=== PATIENT | male | born 1955 | race Caucasian/White ===

== ENCOUNTER 2016-11-04 18:31 | Emergency (ER) | payer OTHER ==
--- NOTE | 2016-11-04 19:52 | ER Document Report ---
ED Medical Screen (RME) - General Stated Complaint: LEG PAIN/SWELLING Notes: 61 yo male c/o swelling to both lower legs with open wounds to both feet x several years but the symptoms worsening x last week. difficult to walk. c/o dizzy spell today. + shortness of breath. denies chest pain. pt denies hx/o DM. + hx/o HTN significant swelling to both lower extremities. + ulcerations to plantar great toes. + erythema. very painful
[2016-11-04 20:19] LABS: ABSOLUTE BASOPHILS # (AUTO) 0.1 10^3/uL (0.0-0.2); ABSOLUTE LYMPHOCYTES (AUTO) 1.2 10^3/uL (0.5-4.7); ABSOLUTE MONOCYTES (AUTO) 0.3 10^3/uL (0.1-1.4); ABSOLUTE NEUT (AUTO) 3.5 10^3/uL (1.7-8.2); BASOPHILS % (AUTO) 1.2 % (0-2); EOSINOPHILS % (AUTO) 0.6 % (0-6); HEMATOCRIT 39.8 % (37.9-51.0); HEMOGLOBIN 13.8 g/dL (13.5-17.0); HGB HCT DIFFERENCE 1.6; LYMPHOCYTES % (AUTO) 23.6 % (13-45); MEAN CORPUSCULAR HEMOGLOBIN 36.9 pg (27.0-33.4); MEAN CORPUSCULAR HGB CONC 34.7 g/dL (32.0-36.0); MEAN CORPUSCULAR VOLUME 106 fl (80-97); MONOCYTES % (AUTO) 5.1 % (3-13); RED BLOOD COUNT 3.74 10^6/uL (4.35-5.55); RED CELL DISTRIBUTION WIDTH 13.6 % (11.5-14.0); SEGMENTED NEUTROPHILS % (AUTO) 69.5 % (42-78); WHITE BLOOD COUNT 5.1 10^3/uL (4.0-10.5)
[2016-11-04 20:24] LABS: PROTHROMBIN TIME 14.3 SEC (11.4-15.4)
[2016-11-04 20:35] LABS: ALANINE AMINOTRANSFERASE 103 U/L (21-72); ALBUMIN 3.6 g/dL (3.5-5.0); ALKALINE PHOSPHATASE 255 U/L (38-126); ANION GAP 13 (5-19); ASPARTATE AMINO TRANSFERASE 133 U/L (17-59); BILIRUBIN,TOTAL 1.4 mg/dL (0.2-1.3); BLOOD UREA NITROGEN 6 mg/dL (7-20); CALCIUM 8.8 mg/dL (8.4-10.2); CARBON DIOXIDE 23 mmol/L (22-30); CHLORIDE 110 mmol/L (98-107); CREATININE RESULT 0.69 mg/dL (0.52-1.25); GLUCOSE 143 mg/dL (75-110); POTASSIUM 3.5 mmol/L (3.6-5.0); SODIUM 145.8 mmol/L (137-145); TOTAL PROTEIN 8.7 g/dL (6.3-8.2)
[2016-11-05] MEDS ORDERED: CLINDAMYCIN HCL 150 MG CAPSULE PO ONE (00:41)
[2016-11-05] MEDS ORDERED: HYDROCODONE/ACETAMINOPHEN 5-325 MG 6 TAB/DSPK PO PRN (00:43)
--- NOTE | 2016-11-05 00:43 | ER Document Report ---
ED General - General Chief Complaint: Swelling of Lower Extremity Stated Complaint: LEG PAIN/SWELLING Notes: Patient is a 61-year-old male with past medical history of chronic bilateral lower extremity edema and chronic bilateral lower extremity wounds who presents for concerns of possible infection of his bilateral great toes secondary to chronic wounds. He has not seen his primary care physician regarding today's concerns. He does not currently follow and a wound clinic. States he's had these wounds "on and off for the last one year". Notes that he has a constant, dull, throbbing pain to these areas. Touching the area worsens the pain. Nothing improves the pain. Denies any spreading redness from the area. No fever, nausea or vomiting. - Related Data Allergies/Adverse Reactions: No Known Allergies Allergy (Unverified 11/04/16 19:47) Past Medical History - General Information source: Patient - Social History Smoking Status: Unknown if Ever Smoked Frequency of alcohol use: None Drug Abuse: None Lives with: Family Family History: Reviewed & Not Pertinent Patient has suicidal ideation: No Patient has homicidal ideation: No - Past Medical History Cardiac Medical History: Reports: Hx Hypertension Renal/ Medical History: Denies: Hx Peritoneal Dialysis Past Surgical History: Reports: Hx Appendectomy - Immunizations Hx Diphtheria, Pertussis, Tetanus Vaccination: Yes Review of Systems - Review of Systems Notes: Constitutional: Negative for fever. HENT: Negative for sore throat. Eyes: Negative for visual changes. Cardiovascular: Negative for chest pain. Respiratory: Negative for shortness of breath. Gastrointestinal: Negative for abdominal pain, vomiting or diarrhea. Genitourinary: Negative for dysuria. Musculoskeletal: Positive for bilateral great toe pain. Skin: Positive for wounds of the bilateral great toes Neurological: Negative for headaches, weakness or numbness. 10 point ROS negative except as marked above and in HPI. Physical Exam - Vital signs Vitals: Temp Pulse Resp BP Pulse Ox 97.6 F 98 24 H 179/93 H 97 11/04/16 19:40 11/04/16 19:40 11/04/16 19:40 11/04/16 19:40 11/04/16 19:40 Interpretation: Hypertensive Notes: PHYSICAL EXAMINATION: GENERAL: Well-appearing, well-nourished and in no acute distress. HEAD: Atraumatic, normocephalic. EYES: Pupils equal round and reactive to light, extraocular movements intact, sclera anicteric, conjunctiva are normal. ENT: nares patent, oropharynx clear without exudates. Moist mucous membranes. NECK: Normal range of motion, supple without lymphadenopathy LUNGS: Breath sounds clear to auscultation bilaterally and equal. No wheezes rales or rhonchi. HEART: Regular rate and rhythm without murmurs ABDOMEN: Soft, nontender, normoactive bowel sounds. No guarding, no rebound. No masses appreciated. EXTREMITIES: 3+ pitting edema in the bilateral lower extremities is symmetric NEUROLOGICAL: No focal neurological deficits. Moves all extremities spontaneously and on command. PSYCH: Normal mood, normal affect. SKIN: Warm, Dry, normal turgor, patient is to circumferential wounds along the medial aspects of both great toes along the plantar surface. There is an Fernando arm both areas and there is slight. No drainage from the right-sided wound Course - Re-evaluation Re-evalutation: 11/05/16 00:38 Patient presents with ulcerated wounds with associated pressures of the bilateral great toes in conjunction with his chronic lower extremity edema. He is overall nontoxic in appearance, vitals within normal limits, no leukocytosis. No fever. X-rays wihtout evidence of osteomyelitis. I've have encouraged patient follow-up in the wound care clinic has he needs chronic management of these wounds. He will also be started on antibiotics as his right great toe wound does appear to have an associated purulent drainage and pus.At this time will discharge with return precautions and follow-up recommendations. Verbal discharge instructions given a the bedside and opportunity for questions given. Medication warnings reviewed. Patient is in agreement with this plan and has verbalized understanding of return precautions and the need for primary care follow-up in the next 24-72 hours. - Vital Signs Vital signs: Temp Pulse Resp BP Pulse Ox 98.8 F 94 18 174/81 H 93 11/05/16 01:24 11/05/16 01:24 11/05/16 01:24 11/05/16 01:24 11/05/16 01:24 - Laboratory Result Diagrams: 11/04/16 20:00 11/04/16 20:00 Laboratory results interpreted by me: 11/04/16 11/04/16 20:00 20:00 RBC 3.74 L MCV 106 H MCH 36.9 H Plt Count 75 L Sodium 145.8 H Potassium 3.5 L Chloride 110 H BUN 6 L Glucose 143 H Total Bilirubin 1.4 H AST 133 H ALT 103 H Alkaline Phosphatase 255 H Total Protein 8.7 H - Diagnostic Test Radiology reviewed: Reports reviewed Discharge - Discharge Clinical Impression: Bilateral lower extremity edema, Pressure ulcer of both feet Condition: Good Disposition: HOME, SELF-CARE Additional Instructions: Please take the antibiotics as directed. Take pain medication that you were sent home with only for severe pain. Please follow-up with Dr. Au of the wound care clinic at your earliest ability. Return if you develop fever, vomiting, worsening pain, spreading redness from her toe wounds, or any other symptoms that are worrisome to you. Prescriptions: RX: Clindamycin HCl 300 mg PO TID #30 capsule Referrals: TRENT AU MD [ACTIVE STAFF] - Follow up in 3-5 days
[2016-11-05 01:35] VITALS: BP 174/81
== END 2016-11-05 01:38 | disposition home or self-care (01) ==
LOC: ER 18:31
DX: L89.899 Pressure ulcer of other site, unspecified stage (principal); R60.0 Localized edema; M79.674 Pain in right toe(s); M79.675 Pain in left toe(s); I10 Essential (primary) hypertension
CPT/HCPCS: 36415; 80053; 85025; 85610; 99283

== ENCOUNTER 2017-02-28 17:45 | Inpatient (IN) | payer OTHER ==
--- NOTE | 2017-02-28 18:11 | ER Document Report ---
ED Medical Screen (RME) - General Chief Complaint: Shortness Of Breath Stated Complaint: BREATHING DIFFICULTY Time Seen by Provider: 02/28/17 18:07 Mode of Arrival: Wheelchair Information source: Patient TRAVEL OUTSIDE OF THE [place] IN LAST 30 DAYS: No - HPI Patient complains to provider of: SOB, dyspnea Onset: Other - pt. with c/o dyspnea and sob for the psat several days with exacerbation today. Gets extrmely SOB when he takes a few steps. - Related Data Allergies/Adverse Reactions: No Known Allergies Allergy (Verified 02/28/17 17:57) Past Medical History - Past Medical History Cardiac Medical History: Reports: Hx Hypertension Renal/ Medical History: Denies: Hx Peritoneal Dialysis Past Surgical History: Reports: Hx Appendectomy - Immunizations Hx Diphtheria, Pertussis, Tetanus Vaccination: Yes Physical Exam - Vital signs Vitals: Temp Pulse Resp BP Pulse Ox 97.9 F 98 28 H 125/62 86 L 02/28/17 17:57 02/28/17 17:57 02/28/17 17:57 02/28/17 17:57 02/28/17 17:57 Course - Vital Signs Vital signs: Temp Pulse Resp BP Pulse Ox 97.9 F 98 28 H 125/62 86 L 02/28/17 17:57 02/28/17 17:57 02/28/17 17:57 02/28/17 17:57 02/28/17 17:57
[2017-02-28 18:47] LABS: ARTERIAL BLOOD BASE EXCESS -3.2 mmol/L; ARTERIAL BLOOD O2 SATURATION 95.1 % (94-98)
[2017-02-28] MEDS ORDERED: IPRATROPIUM/ALBUTEROL 0.5-2.5 MG/3 ML AMPUL NEB ONE (18:57)
[2017-02-28] MEDS ORDERED: METHYLPREDNISOLONE INJ 125 MG/2 ML SDV IV ONE (19:01)
--- NOTE | 2017-02-28 19:07 | ER Document Report ---
ED Respiratory Problem - General Chief Complaint: Shortness Of Breath Stated Complaint: BREATHING DIFFICULTY Time Seen by Provider: 02/28/17 18:07 Mode of Arrival: Wheelchair Information source: Patient Notes: This is a 61-year-old male who presents with significant shortness of breath. He states that this has been worsening for a couple weeks, but for the past 5 days his dyspnea has been severe. Today he has been unable to walk because he is too short of breath. He is not on home oxygen. He states that something similar happened a few years ago when he was told he has "something like COPD". He uses Symbicort at home but no nebulizers. He denies any chest pain. No fevers or chills. He has had a cough that has been nonproductive. He has chronic bilateral lower extremity edema which he says is somewhat worse for the past couple days. TRAVEL OUTSIDE OF THE [place] IN LAST 30 DAYS: No - Related Data Allergies/Adverse Reactions: No Known Allergies Allergy (Verified 02/28/17 17:57) Past Medical History - General Information source: Patient, [facility] Records - Social History Smoking Status: Former Smoker Frequency of alcohol use: Occasional Drug Abuse: None Lives with: Family Family History: Reviewed & Not Pertinent Patient has suicidal ideation: No Patient has homicidal ideation: No - Past Medical History Cardiac Medical History: Reports: Hx Hypertension Pulmonary Medical History: Reports: Hx COPD Renal/ Medical History: Denies: Hx Peritoneal Dialysis Past Surgical History: Reports: Hx Appendectomy, Hx Cholecystectomy - Immunizations Hx Diphtheria, Pertussis, Tetanus Vaccination: Yes Review of Systems - Review of Systems Constitutional: No symptoms reported. denies: Chills, Fever EENT: No symptoms reported Cardiovascular: See HPI, Dyspnea. denies: Chest pain, Palpitations Respiratory: See HPI, Cough. denies: Hurts to breathe, Short of breath, Wheezing Gastrointestinal: No symptoms reported. denies: Abdominal pain, Diarrhea, Vomiting Genitourinary: No symptoms reported Musculoskeletal: See HPI, Leg swelling Skin: No symptoms reported Hematologic/Lymphatic: No symptoms reported Neurological/Psychological: No symptoms reported Physical Exam - Vital signs Vitals: Temp Pulse Resp BP Pulse Ox 97.9 F 98 28 H 125/62 86 L 02/28/17 17:57 02/28/17 17:57 02/28/17 17:57 02/28/17 17:57 02/28/17 17:57 - Notes Notes: PHYSICAL EXAMINATION: GENERAL: Ill appearing male, appears mildly juandiced, tachypnic with mild resp distress, pleasant and conversant with conversational dyspnea HEAD: Atraumatic, normocephalic. EYES: Pupils equal round and reactive to light, extraocular movements intact, sclera icteric ENT: nares patent, oropharynx clear without exudates. MM somewhat tachy NECK: Normal range of motion, supple without lymphadenopathy LUNGS: decreased bibasilar breath sounds with faint crackles, tachypneic, no wheezes appreciated HEART: Regular rate and rhythm without murmurs ABDOMEN: Soft, protuberant, nontender, normoactive bowel sounds. No guarding, no rebound. EXTREMITIES: 2-3+ bilateral LE edema. R ankle with erythema. Pulses intact. NEUROLOGICAL: Cranial nerves grossly intact. No gross focal motor or sensory deficits appreciated PSYCH: Normal mood, normal affect. SKIN: jaundiced, multiple spider angiomas noted Course - Re-evaluation Re-evalutation: 02/28/17 23:40 Patient is not having any increased respiratory difficulty with respirations about 35/min. He is still alert and conversant and states that he feels okay. His sats on 3 L now down to 87%. I will initiate BiPAP at this time I did discuss his CT results and the concern for metastatic disease. I have paged the hospitalist for admission. - Vital Signs Vital signs: Temp Pulse Resp BP Pulse Ox 97.9 F 98 32 H 118/58 L 97 02/28/17 17:57 02/28/17 17:57 03/01/17 02:41 02/28/17 21:00 03/01/17 02:41 - Laboratory Result Diagrams: 02/28/17 18:40 02/28/17 19:33 Laboratory results interpreted by me: 02/28/17 02/28/17 02/28/17 18:37 18:40 18:40 WBC 13.3 H RBC 3.23 L Hgb 13.0 L MCV 119 H MCH 40.3 H RDW 19.9 H Plt Count 107 L Lymphocytes % (Manual) 9 L Abs Neuts (Manual) 10.9 H PT D-Dimer 13.92 H Carbonic Acid 0.74 L ABG pH 7.50 H ABG pCO2 24.5 L ABG pO2 67.0 L ABG HCO3 18.5 L ABG Total CO2 19.2 L Sodium Carbon Dioxide Total Bilirubin Direct Bilirubin AST Alkaline Phosphatase NT-Pro-B Natriuret Pep Total Protein Albumin 02/28/17 02/28/17 02/28/17 18:40 19:33 19:33 WBC RBC Hgb MCV MCH RDW Plt Count Lymphocytes % (Manual) Abs Neuts (Manual) PT 16.7 H D-Dimer Carbonic Acid ABG pH ABG pCO2 ABG pO2 ABG HCO3 ABG Total CO2 Sodium 133.5 L Carbon Dioxide 17 L Total Bilirubin 5.8 H Direct Bilirubin 3.7 H AST 89 H Alkaline Phosphatase 200 H NT-Pro-B Natriuret Pep 2980 H Total Protein 9.1 H Albumin 2.3 L 03/01/17 00:05 WBC RBC Hgb MCV MCH RDW Plt Count Lymphocytes % (Manual) Abs Neuts (Manual) PT D-Dimer Carbonic Acid 0.82 L ABG pH 7.48 H ABG pCO2 27.3 L ABG pO2 ABG HCO3 19.9 L ABG Total CO2 20.7 L Sodium Carbon Dioxide Total Bilirubin Direct Bilirubin AST Alkaline Phosphatase NT-Pro-B Natriuret Pep Total Protein Albumin Critical Care Note - Critical Care Note Total time excluding time spent on procedures (mins): 40 - minutes of critical care time spent in direct contact evaluating and reevaluating the patient, treating symptoms, reviewing labs and studies and speaking with family and consultants excluding any procedures Discharge - Discharge Clinical Impression: Respiratory failure Qualifiers: Chronicity: acute Respiratory failure complication: hypoxia Qualified Code(s): J96.01 - Acute respiratory failure with hypoxia Pulmonary metastases Qualifiers: Laterality: unspecified laterality Qualified Code(s): C78.00 - Secondary malignant neoplasm of unspecified lung Condition: Serious Disposition: ADMITTED INPATIENT Admitting Provider: Hospitalist - Dr. Briggs Unit Admitted: [facility]
[2017-02-28 19:10] LABS: HEMATOCRIT 38.3 % (37.9-51.0); HGB HCT DIFFERENCE 0.7; MEAN CORPUSCULAR HEMOGLOBIN 40.3 pg (27.0-33.4); RED BLOOD COUNT 3.23 10^6/uL (4.35-5.55); RED CELL DISTRIBUTION WIDTH 19.9 % (11.5-14.0); WHITE BLOOD COUNT 13.3 10^3/uL (4.0-10.5)
--- NOTE | 2017-02-28 19:39 | RADIOLOGY REPORT (SQ) ---
EXAM DESCRIPTION: CHEST SINGLE VIEW COMPLETED DATE/TIME: 02/28/2017 7:18 pm REASON FOR STUDY: SOB COMPARISON: None. NUMBER OF VIEWS: One view. TECHNIQUE: Single frontal radiographic view of the chest acquired. LIMITATIONS: None. FINDINGS: LUNGS AND PLEURA: Coarse opacities, alveolar and interstitial densities most conspicuous t hroughout the lung bases relatively diffusely and noted bilaterally. Acuity indeterminate. Findings could reflect active pneumonia/aspiration. Chronic underlying lung disease could also be present. Doubt failure. No pneumothorax. No significant pleural fluid. MEDIASTINUM AND HILAR STRUCTURES: No masses. Contour normal. HEART AND VASCULAR STRUCTURES: Heart normal in size. Normal vasculature. BONES: No acute findings. HARDWARE: None in the chest. OTHER: No other significant finding. IMPRESSION: Abnormal opacities in the lungs bilaterally, acuity indeterminate. See above. TECHNICAL DOCUMENTATION: JOB ID: [id number] [employer]- All Rights Reserved
[2017-02-28 19:40] LABS: PROTHROMBIN TIME 16.7 SEC (11.4-15.4)
[2017-02-28 19:43] LABS: BAND NEUTROPHILS % (MANUAL) 5 % (3-5); BASOPHILS % (MANUAL) 1 % (0-2); EOSINOPHILS % (MANUAL) 0 % (0-6); LYMPHOCYTES % (MANUAL) 9 % (13-45); TOTAL CELLS COUNTED 100
[2017-02-28 19:45] LABS: ANISOCYTOSIS 2+; TOXIC VACUOLATION PRESENT
[2017-02-28 19:46] LABS: POIKILOCYTOSIS SLIGHT; POLYCHROMASIA SLIGHT; ROULEAUX SLIGHT; TOXIC GRANULATION 1+
[2017-02-28 19:48] LABS: TARGET CELLS SLIGHT; TEAR DROP CELLS SLIGHT
[2017-02-28 19:49] LABS: MEAN CORPUSCULAR VOLUME 119 fl (80-97)
[2017-02-28] MEDS ORDERED: AZITHROMYCIN INJ 500 MG VIAL IV ONE (19:57)
[2017-02-28] MEDS ORDERED: CEFTRIAXONE 1 GM/D5W RTU 50 ML IV ONE (19:57)
[2017-02-28 19:59] LABS: ALANINE AMINOTRANSFERASE 45 U/L (21-72); ALBUMIN 2.3 g/dL (3.5-5.0); ALKALINE PHOSPHATASE 200 U/L (38-126); ANION GAP 10 (5-19); ASPARTATE AMINO TRANSFERASE 89 U/L (17-59); BILIRUBIN,DIRECT 3.7 mg/dL (0.0-0.4); BILIRUBIN,TOTAL 5.8 mg/dL (0.2-1.3); BLOOD UREA NITROGEN 15 mg/dL (7-20); CALCIUM 8.5 mg/dL (8.4-10.2); CARBON DIOXIDE 17 mmol/L (22-30); CHLORIDE 107 mmol/L (98-107); CREATINE KINASE 57 U/L (55-170); CREATININE RESULT 0.78 mg/dL (0.52-1.25); GLUCOSE 105 mg/dL (75-110); SODIUM 133.5 mmol/L (137-145); TOTAL PROTEIN 9.1 g/dL (6.3-8.2)
[2017-02-28 20:00] LABS: ALCOHOL < 10 mg/dL (NONE DETECTED)
[2017-02-28 20:19] LABS: CREATINE KINASE MB 0.85 ng/mL (<4.55)
[2017-02-28 20:23] LABS: TROPONIN I < 0.012 ng/mL
--- NOTE | 2017-02-28 23:19 | RADIOLOGY REPORT (SQ) ---
EXAM DESCRIPTION: CTA CHEST COMPLETED DATE/TIME: 02/28/2017 10:53 pm REASON FOR STUDY: concern for PE. Ddimer 13 COMPARISON: None. TECHNIQUE: CT scan of the chest performed using helical scanning technique with dynamic intravenous contrast injection. Images reviewed with lung, soft tissue and bone windows. Reconstructed coronal and sagittal MPR images reviewed. Additional 3 dimensional post-processing performed to develop Maximal Intensity Projection images (HI P). All images stored on PACS. All CT scanners at this facility use dose modulation, iterative reconstruction, and/or weight based d osing when appropriate to reduce radiation dose to as low as reasonably achievable (ALARA). [facility]: Dose Right [facility]: CareDose [facility]: Dose Right [facility]: Teradose 4D [facility]: [facility] CONTRAST TYPE AND DOSE: 78 mL Isovue 370- low osmolar. RENAL FUNCTION: GFR > 60. RADIATION DOSE: 30.11 mGy. LIMITATIONS: None. FINDINGS: LUNGS AND PLEURA: Innumerable pulmonary nodules throughout both lungs with random distribu tion, largest measuring 1.8 cm. Mild basilar subsegmental atelectasis. No pneumothorax. Small ple ural effusions. AORTA AND GREAT VESSELS: No aneurysm or dissection. HEART: No pericardial effusion. PULMONARY ARTERIES: No emboli visualized in the main pulmonary arteries or the segmental branches. HILAR AND MEDIASTINAL STRUCTURES: Multiple station bulky abnormal nodes. HARDWARE: None in the chest. UPPER ABDOMEN: Ascites. Omental nodularity. Bulky upper retroperitoneal adenopathy. Hypodensities in the liver. THYROID AND OTHER SOFT TISSUES: No masses. No adenopathy. BONES: Multiple scattered lytic lesions. 3D MIPS: Confirm above findings. OTHER: No other significant finding. IMPRESSION: Findings consistent with diffuse pulmonary, mediastinal, osseous, and abdominal metastat ic disease. No emboli visualized in the main pulmonary arteries or the segmental branches.. TECHNICAL DOCUMENTATION: JOB ID: [id number] Quality ID # [id number]: Final reports with documentation of one or more dose reduction techniques (e.g., Au tomated exposure control, adjustment of the mA and/or kV according to patient size, use of iterative reconstruction technique) 2010 [employer]- All Rights Reserved
--- NOTE | 2017-02-28 23:41 | EKG REPORT ---
SEVERITY:- ABNORMAL ECG - SINUS RHYTHM LAD, CONSIDER LEFT ANTERIOR FASCICULAR BLOCK : Confirmed by: Sahara Singer 28-Feb-2017 23:40:26
[2017-03-01 00:31] LABS: ARTERIAL BLOOD BASE EXCESS -2.3 mmol/L; ARTERIAL BLOOD O2 SATURATION 97.8 % (94-98)
[2017-03-01 01:54] LABS: ADD ON TESTING BLD IN LAB ACKNOWLEDGE
[2017-03-01] MEDS ORDERED: THIAMINE HCL 100 MG TABLET PO ONE (03:00)
[2017-03-01] MEDS ORDERED: THIAMINE HCL 100 MG TABLET PO SCH (03:00)
--- NOTE | 2017-03-01 03:16 | PDOC H&P ---
History of Present Illness Admission Date/PCP: 03/01/17 00:43 PCP [place] Patient complains of: SOB History of Present Illness: YEIMI SCHILLING is a 61 year old male with underlying hypertension, mild anxiety and depression without suicidal or homicidal ideation, untreated hepatitis C, distant former smoker, ongoing alcohol use, a case of beer less than every 2 weeks, but with no known underlying pulmonary disease, who presents to the emergency room for evaluation of above complaint. Patient has been discussed with emergency room physician who evaluated the patient. Patient describes a 2 week history of progressive shortness of breath, in particular with much of any exertion. This has been particularly noticeable over the last 5 days. He is unable to walk over the last day or so simply because he is too short of breath. There has been no chest pain, fever or chills. Mild dry cough. Has chronic intermittent bilateral lower extremity edema, worse over the past 2 days. Underlying hypertension, but denies previous myocardial infarction, congestive heart failure, pulmonary embolus, or DVT. Was in significant respiratory distress upon presentation, necessitating application of BiPAP, which has since been changed to CPAP. Breathing a bit more comfortably now. Of note, patient is a rambling historian, and seems to have poor insight at best into acute and chronic medical issues. Denies any recent significant weight loss. Appetite has been good. Laboratory results are listed in [facility] and are reviewed. X-ray summary results are listed below, with full report(s) reviewed. . EKG reviewed. Social history/personal habits: . Has children. Retired. Has not smoked "for years." Alcohol use as noted above. Denies illicit drug use. No known drug allergies. Home medications initially autopopulated into [facility] may not accurately reflect patient's true medications, dosages, and/or frequencies. stage technician to reconcile medications. Unfortunately, patient not certain of all medications/dosages/frequencies. REVIEW OF SYSTEMS: Constitutional: No fever or chills. Eyes: Wears glasses. ENT: No swallowing problems or complaints. Partial hearing loss. Pulmonary: See history and present illness. Cardiovascular: See history and present illness. Gastrointestinal: No current complaints, including nausea or vomiting. Skin: No current complaints, including rashes. Hematologic: Denies easy bruising. Neurologic: No current complaints, including numbness or tingling. Musculoskeletal: Mild occasional joint pain, without specific diagnosis of arthritis. See history and present illness. Psychiatric: Mild anxiety and depression, without suicidal or homicidal ideation. Endocrine: No current complaints, including polyuria. Genitourinary: No current complaints, including dysuria. PHYSICAL EXAMINATION: 6 feet 3 inches tall. 93 kg. BMI 25.6 kg/m. Blood pressure 119/79. Pulse 90 and regular. 96% saturation on BiPAP 12/6, 50%. This is been changed to CPAP 12, 50%. Respirations are 26/min, with patient making occasional mild use of his accessory respiratory muscles. Slightly overweight otherwise well-developed though chronically ill-appearing male who appears a number of years older than his stated age. Pleasant awake alert and cooperative. Mildly anxious, without agitation. Skin is warm and dry. No grossly obvious evidence of rash in areas of skin examined. No subcutaneous nodules palpated. Scattered spider angioma. ENT: Hearing grossly normal to normal conversation. Tongue midline on protrusion pink and slightly tacky. Eyes: No scleral icterus. Pupils equal and reactive to light at 4 mm. [place] conjunctivae. Neck is supple and nontender to gentle active range of motion and palpation. Midline trachea. No palpable thyroid nodule mass enlargement or tenderness. Lymphatic: No palpable cervical or clavicular nodes. Neck and lymphatic exams limited by patient body habitus. Psychiatric: At best poor insight into acute and chronic medical issues. Oriented to time location and why here. Somewhat of a rambling historian. Lungs: Auscultation reveals clear and equal breath sounds bilaterally. occasional mild use of his accessory respiratory muscles. Cardiovascular: Heart regular rate and rhythm, without gallop murmur or rub. No carotid or abdominal aortic bruits. Moderate bilateral slightly pitting calf ankle and pedal edema. Faintly palpable dorsalis pedis pulses. Abdomen:soft slightly distended nontender with positive bowel sounds. Unable to adequately evaluate abdomen for masses or organomegaly due to distention. Extremities: Feet are warm and dry. No calf tenderness to compression. Gentle manipulation of lower extremities fails to reveal any obvious evidence of injury or instability to knees hips or ankles. Neurologic: Moves upper extremities grossly normally. Patellar reflexes absent. Absent Babinski. Light touch is intact at feet. Dorsiflexion and plantarflexion of feet 5 / 5 and symmetric. Past Medical History Cardiac Medical History: Reports: Hypertension Denies: Congestive Heart Failure, DVT, Myocardial Infarction, Hyperlipidema, Pulmonary Embolism Pulmonary Medical History: Denies: Asthma, Chronic Obstructive Pulmonary Disease (COPD), Sleep Apnea EENT Medical History: Reports: Eyes - Glasses, Ears - Partial hearing loss Denies: Throat Neurological Medical History: Denies: Hemorrhagic CVA, Ischemic CVA, Seizures Endocrine Medical History: Denies: Diabetes Mellitus Type 1, Diabetes Mellitus Type 2, Hyperthyroidism, Hypothyroidism Renal/ Medical History: Reports: None GI Medical History: Reports: Hepatitis - Hepatitis C, untreated Denies: Gastroesophageal Reflux Disease, Peptic Ulcer Disease Musculoskeltal Medical History: Reports: Other - Occasional joint pain, without specific diagnosis of arthritis. Skin Medical History: Reports: None Psychiatric Medical History: Reports: Alcohol Dependency - Case of beer "in less than 2 weeks.", Depression, General Anxiety Disorder Denies: Substance Abuse, Tobacco Dependency Hematology: Reports: None Infectious Medical History: Reports: Hepatitis C - Untreated Denies: Clostridium Difficile, Hepatitis B, Methicillin-Resistant Staph Aureus Past Surgical History Past Surgical History: Reports: Appendectomy, Cholecystectomy Social History Information Source: Patient, Emergency Med Personnel, [facility] Records Smoking Status: Former Smoker Frequency of Alcohol Use: Social Hx Recreational Drug Use: No Drugs: None - Advance Directive Resuscitation Status: Full Code Surrogate healthcare decision maker:: Children Family History Family History: Reviewed & Not Pertinent Parental Family History Reviewed: Yes - Mother of COPD complications. Father myocardial infarction. Children Family History Reviewed: Yes - Son with "back problems." Sibling(s) Family History Reviewed.: Yes - Medication/Allergy Home Medications: Albuterol Sulfate [Proair HFA] 2 puff IH Q4HP PRN 03/04/17 Budesonide/Formoterol Fumarate [Symbicort Hfa 160-4.5 Mcg Inhaler 6 gm] 2 puff IH Q12 03/04/17 Celecoxib [Celebrex 200 mg Capsule] 200 mg PO DAILYP PRN 03/04/17 Folic Acid [Folvite 1 mg Tablet] 1 mg PO DAILY 03/04/17 Furosemide [Lasix] 40 mg PO DAILY 03/04/17 Multivitamin with Minerals [Icaps Plus] 1 tab PO DAILY 03/04/17 Potassium Chloride [K-Tab] 20 meq PO DAILY 03/04/17 RX: Omeprazole 40 mg PO DAILY 03/04/17 Thiamine HCl [Thiamine 100 mg Tablet] 100 mg PO DAILY 03/04/17 Allergies/Adverse Reactions: No Known Allergies Allergy (Verified 02/28/17 17:57) Physical Exam Vital Signs: Temp Pulse Resp BP Pulse Ox 97.9 F 98 31 H 118/58 L 95 02/28/17 17:57 02/28/17 17:57 02/28/17 23:38 02/28/17 21:00 02/28/17 23:38 Results Impressions: Chest X-Ray 02/28/17 18:54 IMPRESSION: Abnormal opacities in the lungs bilaterally, acuity indeterminate. See above. Chest/Abdomen CTA 02/28/17 21:55 IMPRESSION: Findings consistent with diffuse pulmonary, mediastinal, osseous, and abdominal metastatic disease. No emboli visualized in the main pulmonary arteries or the segmental branches.. Assessment & Plan - Diagnosis (1) Acute respiratory failure Qualifiers: Respiratory failure complication: unspecified whether with hypoxia or hypercapnia Qualified Code(s): J96.00 - Acute respiratory failure, unspecified whether with hypoxia or hypercapnia Is this a current diagnosis for this admission?: YesPlan: Suspect due to pulmonary metastases. Maintain CPAP for the present time. Wean as tolerated. I strongly encouraged patient to notify staff should patient feel that breathing is worsening. Patient is a full code. I have strongly encouraged patient not to get out of bed without notifying staff , to avoid a fall with injury. Knee high SCDs for DVT prophylaxis; with thrombocytopenia, and slightly elevated prothrombin time, will hold Lovenox or heparin at this point in time. Impression and plans were discussed with patient who concurs. Time spent in evaluation and management of patient: 64 critical-care minutes. (2) Pulmonary metastases Qualifiers: Laterality: unspecified laterality Qualified Code(s): C78.00 - Secondary malignant neoplasm of unspecified lung Is this a current diagnosis for this admission?: YesPlan: Oncology consult. (3) Elevated LFTs Is this a current diagnosis for this admission?: Yes (4) Hepatitis C Qualifiers: Viral hepatitis chronicity: chronic Hepatic coma status: without hepatic coma Qualified Code(s): B18.2 - Chronic viral hepatitis C Is this a current diagnosis for this admission?: Yes - Inpatient Certification Based on my medical assessment, after consideration of the patient's comorbidities, presenting symptoms, or acuity I expect that the services needed warrant INPATIENT care.: Yes I certify that my determination is in accordance with my understanding of Medicare's requirements for reasonable and necessary INPATIENT services [42 CFR 412.3e].: Yes Medical Necessity: Need Close Monitoring Due to Risk of Patient Decompensation, Need For IV Fluids, Need for Nebulizer Therapy and Monitoring of Response, Risk of Diagnosis Which Will Require Inpatient Eval/Care/Monitoring Post Hospital Care: D/C or Transfer Summary
[2017-03-01] MEDS: NORMAL SALINE 1000 ML 1,000 ML IV PRN ×2 (03:54→17:08)
[2017-03-01 06:59] LABS: ABSOLUTE LYMPHOCYTES (AUTO) 0.9 10^3/uL (0.5-4.7); ABSOLUTE MONOCYTES (AUTO) 0.1 10^3/uL (0.1-1.4); ABSOLUTE NEUT (AUTO) 7.1 10^3/uL (1.7-8.2); BASOPHILS % (AUTO) 0.1 % (0-2); EOSINOPHILS % (AUTO) 0.1 % (0-6); HEMATOCRIT 38.7 % (37.9-51.0); HEMOGLOBIN 13.1 g/dL (13.5-17.0); HGB HCT DIFFERENCE 0.6; LYMPHOCYTES % (AUTO) 10.6 % (13-45); MEAN CORPUSCULAR HEMOGLOBIN 40.4 pg (27.0-33.4); MEAN CORPUSCULAR HGB CONC 33.9 g/dL (32.0-36.0); MEAN CORPUSCULAR VOLUME 119 fl (80-97); MONOCYTES % (AUTO) 1.7 % (3-13); RED BLOOD COUNT 3.25 10^6/uL (4.35-5.55); RED CELL DISTRIBUTION WIDTH 19.2 % (11.5-14.0); SEGMENTED NEUTROPHILS % (AUTO) 87.5 % (42-78); WHITE BLOOD COUNT 8.1 10^3/uL (4.0-10.5)
[2017-03-01 07:10] LABS: ALANINE AMINOTRANSFERASE 36 U/L (21-72); ALBUMIN 2.3 g/dL (3.5-5.0); ALKALINE PHOSPHATASE 174 U/L (38-126); ANION GAP 8 (5-19); ASPARTATE AMINO TRANSFERASE 91 U/L (17-59); BILIRUBIN,DIRECT 3.6 mg/dL (0.0-0.4); BLOOD UREA NITROGEN 20 mg/dL (7-20); CALCIUM 8.3 mg/dL (8.4-10.2); CARBON DIOXIDE 19 mmol/L (22-30); CHLORIDE 107 mmol/L (98-107); CREATININE RESULT 0.82 mg/dL (0.52-1.25); GLUCOSE 174 mg/dL (75-110); SODIUM 134.3 mmol/L (137-145); TOTAL PROTEIN 8.8 g/dL (6.3-8.2)
[2017-03-01 07:18] LABS: PROTHROMBIN TIME 19.7 SEC (11.4-15.4)
[2017-03-01 07:24] LABS: POTASSIUM 5.1 mmol/L (3.6-5.0)
[2017-03-01 07:32] LABS: ANISOCYTOSIS 1+; BURR CELLS SLIGHT; TOXIC GRANULATION 1+
--- NOTE | 2017-03-01 08:33 | PDOC CONSULTATION ---
Consultation Consult Date: 03/01/17 Attending physician:: INOCENCIO CORONA Consult reason:: Pulmonary nodules, lymphadenopathy History of Present Illness Admission Date/PCP: 03/01/17 02:32 Patient complains of: Increasing abdominal girth, difficulty breathing History of Present Illness: 61-year-old male with known history of hepatitis C/cirrhosis, recently increasing abdominal girth, has visible jaundice, telangiectasias, he had CTA of the chest done because of increasing shortness of breath, this indicated diffuse bilateral pulmonary nodules the largest was 1.8 cm, mediastinal adenopathy that was bulky, retroperitoneal adenopathy also bulky. There is some hypodensities in the liver but it was not fully evaluated by the imaging. He denies weight loss but his major complaint has been increasing abdominal girth and shortness of breath. He does have history of heavy drinking in the past but denies heavy drinking over the last few years. He was told about hepatitis C about 2 years ago. Past Medical History Cardiac Medical History: Reports: Hypertension Denies: Congestive Heart Failure, DVT, Myocardial Infarction, Hyperlipidema, Pulmonary Embolism Pulmonary Medical History: Reports: Chronic Obstructive Pulmonary Disease (COPD) Denies: Asthma, Sleep Apnea EENT Medical History: Reports: Eyes - Glasses, Ears - Partial hearing loss Denies: Throat Neurological Medical History: Denies: Hemorrhagic CVA, Ischemic CVA, Seizures Endocrine Medical History: Denies: Diabetes Mellitus Type 1, Diabetes Mellitus Type 2, Hyperthyroidism, Hypothyroidism Renal/ Medical History: Reports: None GI Medical History: Reports: Hepatitis - Hepatitis C, untreated Denies: Gastroesophageal Reflux Disease, Peptic Ulcer Disease Musculoskeltal Medical History: Reports: Other - Occasional joint pain, without specific diagnosis of arthritis. Skin Medical History: Reports: None Psychiatric Medical History: Reports: Alcohol Dependency - Case of beer "in less than 2 weeks.", Depression, General Anxiety Disorder Denies: Substance Abuse, Tobacco Dependency Hematology: Reports: None Infectious Medical History: Reports: Hepatitis C - Untreated Denies: Clostridium Difficile, Hepatitis B, Methicillin-Resistant Staph Aureus Past Surgical History Past Surgical History: Reports: Appendectomy, Cholecystectomy Social History Lives with: Family Smoking Status: Former Smoker Frequency of Alcohol Use: Social Hx Recreational Drug Use: No Drugs: None - Advance Directive Resuscitation Status: Full Code Family History Family History: Reviewed & Not Pertinent Parental Family History Reviewed: Yes Children Family History Reviewed: Yes Sibling(s) Family History Reviewed.: Yes Medication/Allergy Allergies/Adverse Reactions: No Known Allergies Allergy (Verified 02/28/17 17:57) Review of Systems Constitutional: ABSENT: chills, fever(s), headache(s), weight gain, weight loss Eyes: ABSENT: visual disturbances Ears: ABSENT: hearing changes Cardiovascular: ABSENT: chest pain, dyspnea on exertion, edema, orthropnea, palpitations Respiratory: ABSENT: cough, hemoptysis Gastrointestinal: ABSENT: abdominal pain, constipation, diarrhea, hematemesis, hematochezia, nausea, vomiting Genitourinary: ABSENT: dysuria, hematuria Musculoskeletal: ABSENT: joint swelling Integumentary: ABSENT: rash, wounds Neurological: ABSENT: abnormal gait, abnormal speech, confusion, dizziness, focal weakness, syncope Psychiatric: ABSENT: anxiety, depression, homidical ideation, suicidal ideation Endocrine: ABSENT: cold intolerance, heat intolerance, polydipsia, polyuria Hematologic/Lymphatic: ABSENT: easy bleeding, easy bruising Physical Exam Vital Signs: Temp Pulse Resp BP Pulse Ox 98.1 F 98 22 H 108/77 100 03/01/17 03:01 02/28/17 17:57 03/01/17 08:01 03/01/17 08:01 03/01/17 08:01 General appearance: PRESENT: no acute distress, well-developed, well-nourished Head exam: PRESENT: atraumatic, normocephalic Eye exam: PRESENT: conjunctiva pink, EOMI, PERRLA. ABSENT: scleral icterus Ear exam: PRESENT: normal external ear exam Mouth exam: PRESENT: moist, tongue midline Neck exam: ABSENT: carotid bruit, JVD, lymphadenopathy, thyromegaly Respiratory exam: PRESENT: clear to auscultation allan. ABSENT: rales, rhonchi, wheezes Cardiovascular exam: PRESENT: RRR. ABSENT: diastolic murmur, rubs, systolic murmur Pulses: PRESENT: normal dorsalis pedis pul Vascular exam: PRESENT: normal capillary refill GI/Abdominal exam: PRESENT: normal bowel sounds, soft. ABSENT: distended, guarding, mass, organolmegaly, rebound, tenderness Rectal exam: PRESENT: deferred Extremities exam: PRESENT: full ROM. ABSENT: calf tenderness, clubbing, pedal edema Neurological exam: PRESENT: alert, awake, oriented to person, oriented to place , oriented to time, oriented to situation, CN II-XII grossly intact. ABSENT: motor sensory deficit Psychiatric exam: PRESENT: appropriate affect, normal mood. ABSENT: homicidal ideation, suicidal ideation Skin exam: PRESENT: dry, intact, warm. ABSENT: cyanosis, rash Results Laboratory Results: 03/01/17 06:49 03/01/17 06:49 03/01/17 03/01/17 03/01/17 02:46 06:49 06:49 WBC 8.1 RBC 3.25 L Hgb 13.1 L Hct 38.7 MCV 119 H MCH 40.4 H MCHC 33.9 RDW 19.2 H Plt Count 39 L Seg Neutrophils % 87.5 H Lymphocytes % 10.6 L Monocytes % 1.7 L Eosinophils % 0.1 Basophils % 0.1 Absolute Neutrophils 7.1 Absolute Lymphocytes 0.9 Absolute Monocytes 0.1 Absolute Eosinophils 0.0 Absolute Basophils 0.0 Sodium 134.3 L Potassium 5.1 H D Chloride 107 Carbon Dioxide 19 L Anion Gap 8 BUN 20 Creatinine 0.82 Est GFR ( Amer) > 60 Est GFR (Non-Af Amer) > 60 Glucose 174 H Calcium 8.3 L Total Bilirubin 5.0 H AST 91 H ALT 36 Alkaline Phosphatase 174 H Ammonia 26.3 Total Protein 8.8 H Albumin 2.3 L Impressions: Chest X-Ray 02/28/17 18:54 IMPRESSION: Abnormal opacities in the lungs bilaterally, acuity indeterminate. See above. Chest/Abdomen CTA 02/28/17 21:55 IMPRESSION: Findings consistent with diffuse pulmonary, mediastinal, osseous, and abdominal metastatic disease. No emboli visualized in the main pulmonary arteries or the segmental branches.. Assessment & Plan - Diagnosis (1) Pulmonary metastases Qualifiers: Laterality: unspecified laterality Qualified Code(s): C78.00 - Secondary malignant neoplasm of unspecified lung Is this a current diagnosis for this admission?: YesPlan: Bilateral lung nodules, retroperitoneal adenopathy, mediastinal adenopathy, we need to fully evaluate the abdomen, do CT of the abdomen pelvis as well as bone scan, AFP, CEA, Dr. Corona that suggested an abdominal paracentesis and we completely agree with that, we should do that with cytology. Hospitalist team will be putting that order in. - Time Time Spent: Greater than 70 Minutes Critical Time spent with patient: 35 or more minutes - Inpatient Certification Based on my medical assessment, after consideration of the patient's comorbidities, presenting symptoms, or acuity I expect that the services needed warrant INPATIENT care.: Yes I certify that my determination is in accordance with my understanding of Medicare's requirements for reasonable and necessary INPATIENT services [42 CFR 412.3e].: Yes Medical Necessity: Need For Continuous Telemetry Monitoring, Need for Surgery
[2017-03-01 08:44] LABS: APPEARANCE,URINE SLIGHTLY-CLOUDY; BILIRUBIN,URINE MODERATE (NEGATIVE); GLUCOSE, URINE NEGATIVE (NEGATIVE); KETONES,URINE NEGATIVE (NEGATIVE); LEUKOCYTE ESTERASE,URINE NEGATIVE (NEGATIVE); NITRITE,URINE NEGATIVE (NEGATIVE); PROTEIN,URINE NEGATIVE (NEGATIVE); URINE SPECIFIC GRAVITY 1.038
[2017-03-01 08:57] LABS: URINE BARBITURATES SCREEN NEGATIVE; URINE METHADONE SCREEN NEGATIVE; URINE OPIATES LOW NEGATIVE; URINE PHENCYCLIDINE SCREEN NEGATIVE
[2017-03-01] MEDS: FOLIC ACID 1 MG TABLET PO SCH (10:02)
[2017-03-01] MEDS: MULTIVITAMIN TABLET PO SCH (10:02)
--- NOTE | 2017-03-01 11:00 | PDOC PROGRESS REPORT ---
Subjective Progress Note for:: 03/01/17 Subjective:: reason for visit: f/u hypoxic resp failure, pulm nodules, Hep C, ascites hospital course: per other's notes - "61-year-old male with known history of hepatitis C/cirrhosis, recently increasing abdominal girth, has visible jaundice , telangiectasias, he had CTA of the chest done because of increasing shortness of breath, this indicated diffuse bilateral pulmonary nodules the largest was 1.8 cm, mediastinal adenopathy that was bulky, retroperitoneal adenopathy also bulky. There is some hypodensities in the liver but it was not fully evaluated by the imaging. He denies weight loss but his major complaint has been increasing abdominal girth and shortness of breath. He does have history of heavy drinking in the past but denies heavy drinking over the last few years. He was told about hepatitis C about 2 years ago. Patient describes a 2 week history of progressive shortness of breath, in particular with much of any exertion. This is been particularly noticeable over the last 5 days. He is unable to walk over the last day or so simply because he is too short of breath. There has been no chest pain, fever or chills. Mild dry cough. Has chronic intermittent bilateral lower extremity edema, worse over the past 2 days. Underlying hypertension, but denies previous myocardial infarction, congestive heart failure, pulmonary embolus, or DVT. Was in significant respiratory distress upon presentation, necessitating application of BiPAP, which is since been changed to CPAP. Breathing a bit more comfortably now. Of note, patient is a rambling historian, and seems to have poor insight at best into acute and chronic medical issues. Denies any recent significant weight loss." I followed up with him this morning and he is still requiring BIPAP for more for increased WOB and breathlessness and less for hypoxia when off of it. he states he simply "cannot breathe without it right now" and has no prior hx of DAYRON or CPAP needs. he does have hx of COPD "but not yet full blown emphysema" and uses nebulizer machine at home but no home O2. ROS: c/o productive cough but no wheezing, weakness, myalgias and denies chest pain, palpitations, fevers/chills, night sweats, swollen glands, total 10 systems reviewed, remaining systems negative. Physical Exam Vital Signs: Temp Pulse Resp BP Pulse Ox 98.1 F 98 36 H 119/88 H 99 03/01/17 03:01 02/28/17 17:57 03/01/17 10:01 03/01/17 10:00 03/01/17 10:01 General appearance: PRESENT: cooperative, mild distress - respiratory, well- developed, well-nourished Head exam: PRESENT: atraumatic, normocephalic Eye exam: PRESENT: EOMI, scleral icterus. ABSENT: conjunctival injection Mouth exam: PRESENT: dry mucosa, neck supple Teeth exam: PRESENT: poor dentation Throat exam: ABSENT: tonsillar erythema, tonsillar exudate Neck exam: PRESENT: full ROM. ABSENT: JVD, tenderness, tracheal deviation Respiratory exam: PRESENT: accessory muscle use, crackles, rales, retraction, tachypnea. ABSENT: rhonchi, stridor, wheezes Cardiovascular exam: PRESENT: RRR, systolic murmur - soft, high pitched decrescendo murmur at left 2nd intercostal Pulses: PRESENT: normal radial pulses, normal dorsalis pedis pul GI/Abdominal exam: PRESENT: ascites, diminished bowel sounds, distended, normal bowel sounds, soft. ABSENT: firm, guarding, rebound, rigid, tenderness Extremities exam: PRESENT: clubbing, +2 edema. ABSENT: calf tenderness Musculoskeletal exam: PRESENT: ambulatory, full ROM Neurological exam: PRESENT: alert, awake, oriented to person, oriented to place , oriented to time, other - no asterixis Psychiatric exam: PRESENT: appropriate affect, normal mood Focused psych exam: ABSENT: psychomotor agitation Skin exam: PRESENT: jaundice, rash - telengectasias and spider angiomata diffusely across the trunk. ABSENT: dry - damp and clammy, intact - dry eschar on plantar surface of great toe, dry scaling skin intertriginous of toes, warm - cool Results Laboratory Results: 03/01/17 06:49 03/01/17 06:49 03/01/17 03/01/17 03/01/17 02:46 06:49 06:49 WBC 8.1 RBC 3.25 L Hgb 13.1 L Hct 38.7 MCV 119 H MCH 40.4 H MCHC 33.9 RDW 19.2 H Plt Count 39 L Seg Neutrophils % 87.5 H Lymphocytes % 10.6 L Monocytes % 1.7 L Eosinophils % 0.1 Basophils % 0.1 Absolute Neutrophils 7.1 Absolute Lymphocytes 0.9 Absolute Monocytes 0.1 Absolute Eosinophils 0.0 Absolute Basophils 0.0 Sodium 134.3 L Potassium 5.1 H D Chloride 107 Carbon Dioxide 19 L Anion Gap 8 BUN 20 Creatinine 0.82 Est GFR ( Amer) > 60 Est GFR (Non-Af Amer) > 60 Glucose 174 H Calcium 8.3 L Total Bilirubin 5.0 H AST 91 H ALT 36 Alkaline Phosphatase 174 H Ammonia 26.3 Total Protein 8.8 H Albumin 2.3 L Urine Color Urine Appearance Urine pH Ur Specific [place] Urine Protein Urine Glucose (UA) Urine Ketones Urine Blood Urine Nitrite Ur Leukocyte Esterase Urine WBC (Auto) Urine RBC (Auto) 03/01/17 08:15 WBC RBC Hgb Hct MCV MCH MCHC RDW Plt Count Seg Neutrophils % Lymphocytes % Monocytes % Eosinophils % Basophils % Absolute Neutrophils Absolute Lymphocytes Absolute Monocytes Absolute Eosinophils Absolute Basophils Sodium Potassium Chloride Carbon Dioxide Anion Gap BUN Creatinine Est GFR ( Amer) Est GFR (Non-Af Amer) Glucose Calcium Total Bilirubin AST ALT Alkaline Phosphatase Ammonia Total Protein Albumin Urine Color SHAY Urine Appearance SLIGHTLY-CLOUDY Urine pH 5.0 Ur Specific [place] 1.038 Urine Protein NEGATIVE Urine Glucose (UA) NEGATIVE Urine Ketones NEGATIVE Urine Blood NEGATIVE Urine Nitrite NEGATIVE Ur Leukocyte Esterase NEGATIVE Urine WBC (Auto) 2 Urine RBC (Auto) 0 Impressions: Chest X-Ray 02/28/17 18:54 IMPRESSION: Abnormal opacities in the lungs bilaterally, acuity indeterminate. See above. Chest/Abdomen CTA 02/28/17 21:55 IMPRESSION: Findings consistent with diffuse pulmonary, mediastinal, osseous, and abdominal metastatic disease. No emboli visualized in the main pulmonary arteries or the segmental branches.. Status: Image reviewed by me - agree with rads, Assessment & Plan - Diagnosis (1) Acute hypoxemic respiratory failure Is this a current diagnosis for this admission?: YesPlan: multifactorial, clearly complicated by the numerous pulm nodules, underlying COPD, probable heart failure with pulm edema/BLE edema and likely pulm HTN. continue BiPAP; consult Dr Keyla phan for his assistance and bronch when his condition stabilizes. empiric rocephin/zmax given elevated WBCs and symptoms of productive cough as there is little likelihood of harm but fair chance of benefit, can always stop after a day or two if no benefit noted. (2) Pulmonary nodule Is this a current diagnosis for this admission?: YesPlan: unclear etiology but clearly worrisome for neoplasm with metastatic disease, especially in light of his untreated hep C and continued Tob use. dr mckeon, oncology following and will order staging bone scan and ct a/p. ck u/s guided paracentesis for fluid studies including Gm stain, culx, cell count and cytology , may give us our answer without requiring pulm Bx. f/u tumor markers ordered by oncology (3) Sepsis Qualifiers: Sepsis type: sepsis due to unspecified organism Qualified Code(s): A41.9 - Sepsis, unspecified organism Is this a current diagnosis for this admission?: YesPlan: evidenced by tachypnea, leukocytosis and possible pulmonary source; empiric abx , gentle IVFs due to overall hypervolemic state and possible heart failure (4) Hepatitis C Qualifiers: Viral hepatitis chronicity: chronic Hepatic coma status: without hepatic coma Qualified Code(s): B18.2 - Chronic viral hepatitis C Is this a current diagnosis for this admission?: YesPlan: ck viral load and genotype for possible treatment options, depending on his clinical course and findings (5) Macrocytosis Is this a current diagnosis for this admission?: YesPlan: likely toxic effects of ETOH but at risk for other marrow d/o's including but not limited to multiple myeloma, hairy cell leukemia, MDS, etc especially in light of red cell morphologies. ck B12/folate (6) Thrombocytopenia Is this a current diagnosis for this admission?: YesPlan: see above; no heparin products (7) Cirrhosis of liver Qualifiers: Hepatic cirrhosis type: alcoholic cirrhosis Is this a current diagnosis for this admission?: YesPlan: presumed ETOH cirrhosis given hx of heavy ETOH use but possible Hep C driven, demonstrates sequalae of chronic liver failure with mild coagulopathy, thrombocytopenia, jaudice and telengectasias (8) Right heart failure Is this a current diagnosis for this admission?: YesPlan: elevated BNP and severe lymphedema of legs; f/u ct a/p for occlusive disease, f/ u dopplers of legs and ck echo for Rt heart failure and pulm HTN (9) Hypergammaglobulinemia, unspecified Is this a current diagnosis for this admission?: YesPlan: no renal failure but mild anemia, nodules and lytic bone lesions; ck serum immunoglobulins for possible multiple myeloma - Time Time Spent with patient: 25-34 minutes Medications reviewed and adjusted accordingly: Yes - Plan Summary Plan Summary: discussed with eric munoz
--- NOTE | 2017-03-01 11:31 | RADIOLOGY REPORT (SQ) ---
EXAM DESCRIPTION: VENOUS BILATERAL LOWER COMPLETED DATE/TIME: 03/01/2017 11:19 am REASON FOR STUDY: concern for DVT COMPARISON: None. TECHNIQUE: Dynamic and static mendoza scale and color images acquired of both lower extremity venous sy stems. Selected spectral images acquired with additional compression and augmentation maneuvers. Imag es stored on PACS. LIMITATIONS: None. FINDINGS: RIGHT LEG COMMON FEMORAL AND FEMORAL: Normal phasicity, compression and augmentation. No visualized echogenic m aterial on mendoza scale. No defects on color images. POPLITEAL: Normal compression and augmentation. No visualized echogenic material on mendoza scale. No de fects on color images. CALF VESSELS: Normal compression and augmentation. No visualized echogenic material on mendoza scale. No defects on color image. GSV AND SSV: Normal compression. No visualized echogenic material on mendoza scale. No defects on color images. ANY DEEP VENOUS INSUFFICIENCY: Not evaluated. ANY EVIDENCE OF POPLITEAL CYST: No. OTHER: No other significant finding. LEFT LEG COMMON FEMORAL AND FEMORAL: Normal phasicity, compression and augmentation. No visualized echogenic m aterial on mendoza scale. No defects on color images. POPLITEAL: Normal compression and augmentation. No visualized echogenic material on mendoza scale. No de fects on color images. CALF VESSELS: Normal compression and augmentation. No visualized echogenic material on mendoza scale. No defects on color images. GSV AND SSV: Normal compression. No visualized echogenic material on mendoza scale. No defects on color images. ANY DEEP VENOUS INSUFFICIENCY: Not evaluated. ANY EVIDENCE POPLITEAL CYST: No. OTHER: No other significant finding. IMPRESSION: NO EVIDENCE DVT OR SVT IN EITHER LEG. TECHNICAL DOCUMENTATION: JOB ID: [id number]- All Rights Reserved
[2017-03-01] MEDS ORDERED: AZITHROMYCIN 500 MG in DEXTROSE 5%-WATER 250 ML IV SCH ×2 (13:00→18:00)
--- NOTE | 2017-03-01 13:46 | XCELERA REPORT ---
[address] [address] Transthoracic Echocardiogram Report Name: YEIMI SCHILLING Age: 61 yrs Gender: Male : 1955 Patient Status: Inpatient Patient Location: \S\19\S\A Study Date: 03/01/2017 10:23 AM Height: 75 in Weight: 205 lb BSA: 2.2 m2 Procedure: A two-dimensional transthoracic echocardiogram with color flow and Doppler was performed. Study Quality: Technically suboptimal. Poor doppleer interogation . Reason For Study: SOB / DYSPNEA /FLUID OVERLOAD. History: SOB / DYSPNEA /FLUID OVERLOAD. Ordering Physician: INOCENCIO CORTES Performed By: Erin Christie Interpretation Summary The left ventricle is normal in size. There is normal left ventricular wall thickness. LV EF is > than 65% Left ventricular systolic function is normal. Doppler measurements suggest normal left ventricular diastolic function The left ventricular wall motion is normal. There is no thrombus. There is no ventricular septal defect visualized. Suspect moderate RV enlargement.Cannot exclude mild RVH.Cannot assess RVV systolic function. The right atrium is mildly dilated. The left atrium is mildly dilated. There is no evidence of mitral valve prolapse. There is no vegetation seen on the mitral valve. There is no mitral valve stenosis. There is a trace amount of mitral regurgitation There is no aortic valve stenosis There is no LVOT obstruction. No aortic regurgitation is present. There is no tricuspid stenosis. There is servere pulmonary hypertension by echo Probably mild TR ( not well seen jet).RVSP is 72 mm of Hg , with RA mean of 10. The pulmonic valve is not well visualized. There is no pericardial effusion. MMode/2D Measurements \T\ Calculations RVDd: 2.9 cm LVIDd: 5.3 cm FS: 47.6 % Ao root diam: 3.1 cm IVSd: 0.87 cm LVIDs: 2.8 cm EDV(Teich): 134.9 ml LVPWd: 0.92 cm ESV(Teich): 28.9 ml Ao root area: 7.6 cm2 EF(Teich): 78.6 % LA dimension: 4.3 cm Doppler Measurements \T\ Calculations MV E max susan: MV P1/2t max susan: Ao V2 max: LV V1 max P.5 cm/sec 76.5 cm/sec 156.7 cm/sec 8.3 mmHg MV A max susan: MV P1/2t: 90.0 msec Ao max PG: LV V1 max: 73.1 cm/sec 9.8 mmHg 144.1 cm/sec MV E/A: 1.0 MVA(P1/2t): 2.4 cm2 MV dec slope: 249.0 cm/sec2 MV dec time: 0.31 sec PA V2 max: TR max susan: 83.4 cm/sec 393.6 cm/sec PA max PG: TR max P.0 mmHg 2.8 mmHg Left Ventricle The left ventricle is normal in size. There is normal left ventricular wall thickness. LV EF is > than 65%. Left ventricular systolic function is normal. Doppler measurements suggest normal left ventricular diastolic function. The left ventricular wall motion is normal. There is no thrombus. There is no ventricular septal defect visualized. Right Ventricle The right ventricle is not well visualized secondary to technical limitations. Suspect moderate RV enlargement.Cannot exclude mild RVH.Cannot assess RVV systolic function. Atria The right atrium is mildly dilated. The left atrium is mildly dilated. The interatrial septum is intact with no evidence for an atrial septal defect. Mitral Valve There is mild mitral annular calcification. There is no evidence of mitral valve prolapse. There is no vegetation seen on the mitral valve. There is no mitral valve stenosis. There is a trace amount of mitral regurgitation. Aortic Valve There is no aortic valvular vegetation. There is no aortic valve stenosis. There is no LVOT obstruction. No aortic regurgitation is present. Tricuspid Valve There is no tricuspid stenosis. There is servere pulmonary hypertension by echo. Probably mild TR ( not well seen jet).RVSP is 72 mm of Hg , with RA mean of 10. Pulmonic Valve The pulmonic valve is not well visualized. Great Vessels The aortic root is not well visualized but is probably normal size. Effusions There is no pericardial effusion. : INOCENCIO CORTES > Estefani Moncada
[2017-03-01] MEDS ORDERED: NORMAL SALINE 250 ML IV PRN ×2 (14:21)
[2017-03-01] MEDS: CEFTRIAXONE 1 GM/D5W RTU 1 GM/50 ML RTUPB IV SCH (14:50)
[2017-03-01 18:26] LABS: PATH REVIEW PATHOLOGIST REVIEWED
[2017-03-01] MEDS: GUAIFENESIN SYRP 200 MG/10 ML UDC PO PRN (20:30)
--- NOTE | 2017-03-02 01:09 | RADIOLOGY REPORT (SQ) ---
EXAM DESCRIPTION: CT ABD/PELVIS WITH IV ONLY COMPLETED DATE/TIME: 03/01/2017 9:39 pm REASON FOR STUDY: indication retroperiteneal LAD COMPARISON: None. TECHNIQUE: CT scan of the abdomen and pelvis performed using helical scanning technique with dynamic intravenous contrast injection. No oral contrast. Images reviewed with lung, soft tissue, and bone windows. Reconstructed coronal and sagittal MPR images reviewed. CT chest, 02/28/2017. All images store d on PACS. All CT scanners at this facility use dose modulation, iterative reconstruction, and/or weight based d osing when appropriate to reduce radiation dose to as low as reasonably achievable (ALARA). [facility]: Dose Right [facility]: CareDose [facility]: Dose Right [facility]: Teradose 4D [facility]: ScriptRx CONTRAST TYPE AND DOSE: 100mL Isovue 370- low osmolar. RENAL FUNCTION: Creatinine 0.8 RADIATION DOSE: 29.18mGy. LIMITATIONS: None. FINDINGS: LOWER CHEST: Innumerable pulmonary nodules of bilateral lower lobes as partially imaged me asuring up to 1.7 cm in the left lung base. LIVER: Indeterminate poorly defined low-attenuation right hepatic lesions measuring 4.7 cm and 1.7 cm . Additional low-attenuation areas of the right hepatic lobe. Cirrhosis pattern with varices -shunt ing. SPLEEN: Normal size. No focal lesions. PANCREAS: Mild diffuse atrophy. GALLBLADDER: No identified stones by CT criteria. No inflammatory changes to suggest cholecystitis. ADRENAL GLANDS: No significant masses or asymmetry. RIGHT KIDNEY AND URETER: No solid masses. No significant calcifications. No hydronephrosis or hyd roureter. LEFT KIDNEY AND URETER: No solid masses. No significant calcifications. No hydronephrosis or hydr oureter. AORTA AND VESSELS: No aneurysm. No dissection. Renal arteries, SMA, celiac without stenosis. RETROPERITONEUM: Lymphadenopathy includes a 2.4 cm left para-aortic lymph node, image 40 of series 3. BOWEL AND PERITONEAL CAVITY: Moderate ascites. Colonic diverticulosis. APPENDIX: Not visualized. PELVIS: No mass or free fluid. Normal bladder. ABDOMINAL WALL: No masses. No hernias. Moderate anasarca pattern. BONES: Grade 1 L5 anterolisthesis and left L5 spondylolysis. OTHER: No other significant finding. IMPRESSION: Metastatic disease pattern consistent with CT from of the chest, 1 day prior. There are innumerable pulmonary nodules of the lung bases, retroperitoneal lymphadenopathy, indeterminate live r lesions, and moderate ascites. TECHNICAL DOCUMENTATION: JOB ID: [id number] Quality ID # [id number]: Final reports with documentation of one or more dose reduction techniques (e.g., Au tomated exposure control, adjustment of the mA and/or kV according to patient size, use of iterative reconstruction technique) 2010 [employer]- All Rights Reserved
[2017-03-02 05:46] LABS: ABSOLUTE LYMPHOCYTES (AUTO) 0.8 10^3/uL (0.5-4.7); ABSOLUTE MONOCYTES (AUTO) 0.7 10^3/uL (0.1-1.4); ABSOLUTE NEUT (AUTO) 13.4 10^3/uL (1.7-8.2); BASOPHILS % (AUTO) 0.3 % (0-2); HEMATOCRIT 32.6 % (37.9-51.0); LYMPHOCYTES % (AUTO) 5.1 % (13-45); MEAN CORPUSCULAR HEMOGLOBIN 39.9 pg (27.0-33.4); MEAN CORPUSCULAR HGB CONC 33.1 g/dL (32.0-36.0); MEAN CORPUSCULAR VOLUME 120 fl (80-97); MONOCYTES % (AUTO) 4.4 % (3-13); RED BLOOD COUNT 2.71 10^6/uL (4.35-5.55); RED CELL DISTRIBUTION WIDTH 18.5 % (11.5-14.0); SEGMENTED NEUTROPHILS % (AUTO) 90.2 % (42-78); WHITE BLOOD COUNT 14.9 10^3/uL (4.0-10.5)
[2017-03-02 06:05] LABS: ALANINE AMINOTRANSFERASE 45 U/L (21-72); ALKALINE PHOSPHATASE 192 U/L (38-126); ANION GAP 11 (5-19); ASPARTATE AMINO TRANSFERASE 70 U/L (17-59); BILIRUBIN,DIRECT 2.6 mg/dL (0.0-0.4); BILIRUBIN,TOTAL 3.6 mg/dL (0.2-1.3); BLOOD UREA NITROGEN 26 mg/dL (7-20); CARBON DIOXIDE 19 mmol/L (22-30); CHLORIDE 108 mmol/L (98-107); CREATININE RESULT 0.79 mg/dL (0.52-1.25); GLUCOSE 203 mg/dL (75-110); MAGNESIUM 2.1 mg/dL (1.6-2.3); POTASSIUM 4.2 mmol/L (3.6-5.0); SODIUM 137.6 mmol/L (137-145)
[2017-03-02 06:24] LABS: HEMATOCRIT 31.6 % (37.9-51.0); HEMOGLOBIN 10.5 g/dL (13.5-17.0); HGB HCT DIFFERENCE -0.1; MEAN CORPUSCULAR HGB CONC 33.2 g/dL (32.0-36.0); MEAN CORPUSCULAR VOLUME 121 fl (80-97); RED BLOOD COUNT 2.62 10^6/uL (4.35-5.55); RED CELL DISTRIBUTION WIDTH 18.8 % (11.5-14.0); WHITE BLOOD COUNT 14.3 10^3/uL (4.0-10.5)
[2017-03-02 06:39] LABS: HEMOGLOBIN 10.8 g/dL (13.5-17.0); HGB HCT DIFFERENCE -0.2
[2017-03-02 06:41] LABS: ANISOCYTOSIS 2+; POLYCHROMASIA SLIGHT; TOXIC GRANULATION 1+
[2017-03-02 07:31] LABS: PROTHROMBIN TIME 20.5 SEC (11.4-15.4)
[2017-03-02 07:42] LABS: IMMUNOGLOBULIN G 4548 mg/dL (700-1600); IMMUNOGLOBULIN M 150 mg/dL (20-172)
--- NOTE | 2017-03-02 08:39 | PDOC PROGRESS REPORT ---
Subjective Progress Note for:: 03/02/17 Subjective:: Of the abdomen pelvis with 2 liver lesions at least, retroperitoneal adenopathy , lung lesions, omental disease, ascites, overall picture seems consistent with possibly a primary HCC or a bowel/GI primary, with metastasis to multiple other areas. Agree with paracentesis with cytology first, thereafter if that is negative, we would pursue liver biopsy. Today had a long discussion greater than 40 minutes with the patient about current status of disease, at this point he does not want me to contact any of his other family about his current situation, but he does seem to understand what is going on. Physical Exam Vital Signs: Temp Pulse Resp BP Pulse Ox 97.6 F 84 19 127/70 H 94 03/02/17 08:13 03/02/17 08:13 03/02/17 08:13 03/02/17 08:13 03/02/17 08:13 Intake & Output 03/01/17 03/02/17 03/03/17 06:59 06:59 06:59 Intake Total 2718 Output Total 1460 Balance 1258 Weight 97.9 kg General appearance: PRESENT: no acute distress, well-developed, well-nourished Head exam: PRESENT: atraumatic, normocephalic Eye exam: PRESENT: conjunctiva pink, EOMI, PERRLA. ABSENT: scleral icterus Ear exam: PRESENT: normal external ear exam Mouth exam: PRESENT: moist, tongue midline Neck exam: ABSENT: carotid bruit, JVD, lymphadenopathy, thyromegaly Respiratory exam: PRESENT: clear to auscultation allan. ABSENT: rales, rhonchi, wheezes Cardiovascular exam: PRESENT: RRR. ABSENT: diastolic murmur, rubs, systolic murmur Pulses: PRESENT: normal dorsalis pedis pul Vascular exam: PRESENT: normal capillary refill GI/Abdominal exam: PRESENT: normal bowel sounds, soft. ABSENT: distended, guarding, mass, organolmegaly, rebound, tenderness Rectal exam: PRESENT: deferred Extremities exam: PRESENT: full ROM. ABSENT: calf tenderness, clubbing, pedal edema Neurological exam: PRESENT: alert, awake, oriented to person, oriented to place , oriented to time, oriented to situation, CN II-XII grossly intact. ABSENT: motor sensory deficit Psychiatric exam: PRESENT: appropriate affect, normal mood. ABSENT: homicidal ideation, suicidal ideation Skin exam: PRESENT: dry, intact, warm. ABSENT: cyanosis, rash Results Laboratory Results: 03/02/17 06:03 03/02/17 04:53 03/01/17 03/01/17 03/01/17 08:15 11:30 14:49 WBC RBC Hgb Hct MCV MCH MCHC RDW Plt Count Seg Neutrophils % Lymphocytes % Monocytes % Eosinophils % Basophils % Absolute Neutrophils Absolute Lymphocytes Absolute Monocytes Absolute Eosinophils Absolute Basophils Sodium Potassium Chloride Carbon Dioxide Anion Gap BUN Creatinine Est GFR ( Amer) Est GFR (Non-Af Amer) Glucose Calcium Magnesium Total Bilirubin AST ALT Alkaline Phosphatase Total Protein Albumin Vitamin B12 > 1000.0 H Folate 17.70 Urine Color SHAY Urine Appearance SLIGHTLY-CLOUDY Urine pH 5.0 Ur Specific [place] 1.038 Urine Protein NEGATIVE Urine Glucose (UA) NEGATIVE Urine Ketones NEGATIVE Urine Blood NEGATIVE Urine Nitrite NEGATIVE Ur Leukocyte Esterase NEGATIVE Urine WBC (Auto) 2 Urine RBC (Auto) 0 Blood Type AB POSITIVE 03/02/17 03/02/17 03/02/17 04:53 04:53 06:03 WBC 14.9 H 14.3 H RBC 2.71 L 2.62 L Hgb 10.8 L D 10.5 L Hct 32.6 L 31.6 L MCV 120 H 121 H MCH 39.9 H 40.0 H MCHC 33.1 33.2 RDW 18.5 H 18.8 H Plt Count 42 L 80 L Seg Neutrophils % 90.2 H Lymphocytes % 5.1 L Monocytes % 4.4 Eosinophils % 0.0 Basophils % 0.3 Absolute Neutrophils 13.4 H Absolute Lymphocytes 0.8 Absolute Monocytes 0.7 Absolute Eosinophils 0.0 Absolute Basophils 0.0 Sodium 137.6 Potassium 4.2 Chloride 108 H Carbon Dioxide 19 L Anion Gap 11 BUN 26 H Creatinine 0.79 Est GFR ( Amer) > 60 Est GFR (Non-Af Amer) > 60 Glucose 203 H Calcium 8.0 L Magnesium 2.1 Total Bilirubin 3.6 H AST 70 H ALT 45 Alkaline Phosphatase 192 H Total Protein 8.0 Albumin 2.0 L Vitamin B12 Folate Urine Color Urine Appearance Urine pH Ur Specific [place] Urine Protein Urine Glucose (UA) Urine Ketones Urine Blood Urine Nitrite Ur Leukocyte Esterase Urine WBC (Auto) Urine RBC (Auto) Blood Type Impressions: Chest X-Ray 02/28/17 18:54 IMPRESSION: Abnormal opacities in the lungs bilaterally, acuity indeterminate. See above. Chest/Abdomen CTA 02/28/17 21:55 IMPRESSION: Findings consistent with diffuse pulmonary, mediastinal, osseous, and abdominal metastatic disease. No emboli visualized in the main pulmonary arteries or the segmental branches.. Abdomen/Pelvis CT 03/01/17 00:00 IMPRESSION: Metastatic disease pattern consistent with CT from of the chest, 1 day prior. There are innumerable pulmonary nodules of the lung bases, retroperitoneal lymphadenopathy, indeterminate liver lesions, and moderate ascites. Venous Doppler Study 03/01/17 00:00 IMPRESSION: NO EVIDENCE DVT OR SVT IN EITHER LEG. Assessment & Plan - Diagnosis (1) Pulmonary metastases Qualifiers: Laterality: unspecified laterality Qualified Code(s): C78.00 - Secondary malignant neoplasm of unspecified lung Is this a current diagnosis for this admission?: YesPlan: Still unknown primary, but most likely bowel primary/GI primary would be most likely, proceed with paracentesis, cytology is negative then proceed with liver biopsy if possible. Continue with other supportive measures per hospitalist team. - Time Time Spent with patient: 35 or more minutes Critical Time spent with patient: 35 or more minutes - Inpatient Certification Based on my medical assessment, after consideration of the patient's comorbidities, presenting symptoms, or acuity I expect that the services needed warrant INPATIENT care.: Yes I certify that my determination is in accordance with my understanding of Medicare's requirements for reasonable and necessary INPATIENT services [42 CFR 412.3e].: Yes Medical Necessity: Need for Surgery
[2017-03-02 09:28] LABS: IMMUNOGLOBULIN A 1054 mg/dL (61-437); IMMUNOGLOBULIN E 1389 IU/mL (0-100)
[2017-03-02 10:09] LABS: FLUID TYPE PERITONEAL
--- NOTE | 2017-03-02 10:13 | RADIOLOGY REPORT (SQ) ---
EXAM DESCRIPTION: U/S ABD PARACENTESIS COMPLETED DATE/TIME: 03/02/2017 10:03 am REASON FOR STUDY: diagnostic paracentesis, send fluid for studies COMPARISON CT abdomen pelvis with IV contrast LIMITATIONS: None. PROCEDURE: After obtaining informed consent, the patient was brought to the ultrasound suite. The p rocedure was performed with the patient on a gurney. Ultrasound was used to identify a prominent poc ket of ascites in the right lower quadrant. An appropriate access site was selected. The patient wa s prepped and draped in usual sterile fashion. The access site was anesthetized with 4.5 mL 1% lido gaby. A [id number] needle was advanced into the fluid. After aspiration of fluid the needle, the catheter was advanced off the needle into the fluid. A total of 2,700 mL of clear straw-colored fluid was removed. The patient tolerated the procedure well left the department in satisfactory condi tion. Lab the sent for testing as per Dr. Corona IMPRESSION: Ultrasound-guided therapeutic and diagnostic paracentesis COMMENT: Patient medication list reviewed: Yes- Quality ID# [id number]:Eligible professional attests to doc umenting in the medical record they obtained, updated, or reviewed the patient's current medications. Quality ID #[id number]: The patient was prepped and draped using maximum sterile barrier technique including cap, mask, sterile gown, sterile gloves, a large sterile sheet, hand hygiene, and 2% Chlorhexidine fo r cutaneous antisepsis. When ultrasound is used, sterile ultrasound techniques are followed requiring sterile gel and sterile probes. Quality ID #[id number]: Final reports for procedures using fluoroscopy that document radiation exposure shani jay, or exposure time and number of fluorographic images (if radiation exposure indices are not avail able) TECHNICAL DOCUMENTATION: JOB ID: [id number] [employer]- All Rights Reserved
[2017-03-02 10:31] LABS: FLUID APPEARANCE HAZY
[2017-03-02] MEDS: THIAMINE HCL 100 MG TABLET PO SCH (10:36)
[2017-03-02] MEDS: MULTIVITAMIN TABLET PO SCH (10:36)
[2017-03-02] MEDS: FOLIC ACID 1 MG TABLET PO SCH (10:36)
[2017-03-02 10:50] LABS: FLUID RBC AVERAGE 133.5; FLUID RBC DILUENT USED NONE USED; FLUID RBC DILUTION FACTOR 1; FLUID RBC SIDE 1 128; FLUID RBC SIDE 2 139; TOTAL RBC SQUARES COUNTED FLD 75
--- NOTE | 2017-03-02 12:39 | PDOC CONSULTATION ---
Consultation Consult Date: 03/01/17 Attending physician:: INOCENCIO CORTES Consult reason:: lung nodules History of Present Illness Admission Date/PCP: 03/01/17 02:32 History of Present Illness: 61-year-old male with known history of hepatitis C/cirrhosis, recently increasing abdominal girth, has visible jaundice, telangiectasias, he had CTA of the chest done because of increasing shortness of breath, this indicated diffuse bilateral pulmonary nodules the largest was 1.8 cm, mediastinal adenopathy that was bulky, retroperitoneal adenopathy also bulky. There is some hypodensities in the liver but it was not fully evaluated by the imaging. He denies weight loss but his major complaint has been increasing abdominal girth and shortness of breath. He does have history of heavy drinking in the past but denies heavy drinking over the last few years. He was told about hepatitis C about 2 years ago.He also smoked 2 packs a day approximately 50 years but has not smoked in the last 5 years according to the patient he denies any history of chronic lung disease as a child or as an adolescent. He denies hemoptysis he states his PPD was negative but the date is unknown he admits to exposure to passive smoke as a child and as an adult. He has no pets no recent travel he sleeps on 2 pillows sometimes more occasional PND occasional nocturnal cough Past Medical History Cardiac Medical History: Reports: Hypertension Denies: Congestive Heart Failure, DVT, Myocardial Infarction, Hyperlipidema, Pulmonary Embolism Pulmonary Medical History: Reports: Chronic Obstructive Pulmonary Disease (COPD) Denies: Asthma, Sleep Apnea EENT Medical History: Reports: Eyes - Glasses, Ears - Partial hearing loss Denies: Throat Neurological Medical History: Denies: Hemorrhagic CVA, Ischemic CVA, Seizures Endocrine Medical History: Denies: Diabetes Mellitus Type 1, Diabetes Mellitus Type 2, Hyperthyroidism, Hypothyroidism Renal/ Medical History: Reports: None GI Medical History: Reports: Hepatitis - Hepatitis C, untreated Denies: Gastroesophageal Reflux Disease, Peptic Ulcer Disease Musculoskeltal Medical History: Reports: Other - Occasional joint pain, without specific diagnosis of arthritis. Skin Medical History: Reports: None Psychiatric Medical History: Reports: Alcohol Dependency - Case of beer "in less than 2 weeks.", Depression, General Anxiety Disorder Denies: Substance Abuse, Tobacco Dependency Hematology: Reports: None Infectious Medical History: Reports: Hepatitis C - Untreated Denies: Clostridium Difficile, Hepatitis B, Methicillin-Resistant Staph Aureus Past Surgical History Past Surgical History: Reports: Appendectomy, Cholecystectomy Social History Information Source: Patient, [facility] Records Lives with: Family Smoking Status: Former Smoker Cigarettes Packs Per Day: 2 Number of Years Smokin Passive smoke exposure as: Both Frequency of Alcohol Use: Heavy Hx Recreational Drug Use: No Drugs: None - Advance Directive Resuscitation Status: Full Code Family History Family History: Reviewed & Not Pertinent Parental Family History Reviewed: Yes Children Family History Reviewed: Yes Sibling(s) Family History Reviewed.: Yes Medication/Allergy Allergies/Adverse Reactions: No Known Allergies Allergy (Verified 02/28/17 17:57) Physical Exam Vital Signs: Temp Pulse Resp BP Pulse Ox 97.6 F 78 18 127/70 H 94 03/02/17 08:13 03/02/17 12:17 03/02/17 12:17 03/02/17 08:13 03/02/17 08:13 Intake & Output 03/01/17 03/02/17 03/03/17 06:59 06:59 06:59 Intake Total 2718 Output Total 1460 Balance 1258 Weight 97.9 kg General appearance: PRESENT: no acute distress, cooperative, disheveled, thin, well-developed Head exam: PRESENT: atraumatic, normocephalic Eye exam: PRESENT: conjunctiva pale, EOMI Mouth exam: PRESENT: dry mucosa, neck supple, tongue midline Neck exam: ABSENT: carotid bruit, JVD, lymphadenopathy, thyromegaly Respiratory exam: PRESENT: decreased breath sounds, prolonged expiratory phas, rhonchi, symmetrical, unlabored Cardiovascular exam: PRESENT: RRR, +S1, +S2 Pulses: PRESENT: normal radial pulses GI/Abdominal exam: PRESENT: ascites, distended, hypoactive bowel sounds Rectal exam: PRESENT: deferred Gentrourinary exam: PRESENT: indwelling catheter Musculoskeletal exam: PRESENT: normal inspection Neurological exam: PRESENT: awake Psychiatric exam: PRESENT: normal mood Skin exam: PRESENT: dry, pallor, other - Hemangiomas diffusely on trunk as well as extremities Results Laboratory Results: 03/02/17 06:03 03/02/17 04:53 03/01/17 03/01/17 03/02/17 11:30 14:49 04:53 WBC 14.9 H RBC 2.71 L Hgb 10.8 L D Hct 32.6 L MCV 120 H MCH 39.9 H MCHC 33.1 RDW 18.5 H Plt Count 42 L Seg Neutrophils % 90.2 H Lymphocytes % 5.1 L Monocytes % 4.4 Eosinophils % 0.0 Basophils % 0.3 Absolute Neutrophils 13.4 H Absolute Lymphocytes 0.8 Absolute Monocytes 0.7 Absolute Eosinophils 0.0 Absolute Basophils 0.0 Sodium Potassium Chloride Carbon Dioxide Anion Gap BUN Creatinine Est GFR ( Amer) Est GFR (Non-Af Amer) Glucose Calcium Magnesium Total Bilirubin AST ALT Alkaline Phosphatase Total Protein Albumin Vitamin B12 > 1000.0 H Folate 17.70 Fluid Type Fluid Source Fluid Color Fluid Appearance Fluid Viscosity Fluid WBC Fluid RBC Blood Type AB POSITIVE 03/02/17 03/02/17 03/02/17 04:53 06:03 09:23 WBC 14.3 H RBC 2.62 L Hgb 10.5 L Hct 31.6 L MCV 121 H MCH 40.0 H MCHC 33.2 RDW 18.8 H Plt Count 80 L Seg Neutrophils % Lymphocytes % Monocytes % Eosinophils % Basophils % Absolute Neutrophils Absolute Lymphocytes Absolute Monocytes Absolute Eosinophils Absolute Basophils Sodium 137.6 Potassium 4.2 Chloride 108 H Carbon Dioxide 19 L Anion Gap 11 BUN 26 H Creatinine 0.79 Est GFR ( Amer) > 60 Est GFR (Non-Af Amer) > 60 Glucose 203 H Calcium 8.0 L Magnesium 2.1 Total Bilirubin 3.6 H AST 70 H ALT 45 Alkaline Phosphatase 192 H Total Protein 8.0 Albumin 2.0 L Vitamin B12 Folate Fluid Type PERITONEAL Fluid Source ASCITES Fluid Color YELLOW Fluid Appearance HAZY Fluid Viscosity LIQUID Fluid WBC 214 Fluid RBC 445 Blood Type Impressions: Chest X-Ray 02/28/17 18:54 IMPRESSION: Abnormal opacities in the lungs bilaterally, acuity indeterminate. See above. Chest/Abdomen CTA 02/28/17 21:55 IMPRESSION: Findings consistent with diffuse pulmonary, mediastinal, osseous, and abdominal metastatic disease. No emboli visualized in the main pulmonary arteries or the segmental branches.. Abdomen/Pelvis CT 03/01/17 00:00 IMPRESSION: Metastatic disease pattern consistent with CT from of the chest, 1 day prior. There are innumerable pulmonary nodules of the lung bases, retroperitoneal lymphadenopathy, indeterminate liver lesions, and moderate ascites. Venous Doppler Study 03/01/17 00:00 IMPRESSION: NO EVIDENCE DVT OR SVT IN EITHER LEG. Paracentesis Ultrasound 03/02/17 00:00 IMPRESSION: Ultrasound-guided therapeutic and diagnostic paracentesis Assessment & Plan - Diagnosis (1) Acute hypoxemic respiratory failure Is this a current diagnosis for this admission?: YesPlan: Multiple etiologies tobacco abuse pulmonary nodules probably metastatic pleural effusion and ascites (2) Cirrhosis of liver Qualifiers: Hepatic cirrhosis type: alcoholic cirrhosis Is this a current diagnosis for this admission?: Yes (3) Pulmonary nodule Is this a current diagnosis for this admission?: YesPlan: Multiple various stages subcentimeter to 1.6 cm (4) Hepatitis C Qualifiers: Viral hepatitis chronicity: chronic Hepatic coma status: without hepatic coma Qualified Code(s): B18.2 - Chronic viral hepatitis C Is this a current diagnosis for this admission?: Yes (5) Thrombocytopenia Is this a current diagnosis for this admission?: YesPlan: Labs- All tests 24 hr 02/28/17 03/01/17 03/02/17 18:40 06:49 04:53 Plt Count 107 L 39 L 42 L 03/02/17 06:03 Plt Count 80 L Possibly due to liver failure or bone marrow invasion
[2017-03-02] MEDS: CEFTRIAXONE 1 GM/D5W RTU 1 GM/50 ML RTUPB IV SCH (13:19)
--- NOTE | 2017-03-02 14:17 | RADIOLOGY REPORT (SQ) ---
EXAM DESCRIPTION: NM WHOLE BODY BONE SCAN COMPLETED DATE/TIME: 03/02/2017 2:06 pm REASON FOR STUDY: Indication bone Metastasis COMPARISON: CT angio chest 02/28/2017 CT abdomen pelvis 03/01/2017 RADIONUCLIDE AND DOSE: 19.8 millicuries Tc99m MDP. The route of agent administration: Intravenous. ADDITIONAL DRUGS AND DOSES: None. TECHNIQUE: Routine delayed images at 3 hours post radionuclide injection acquired of the bony skelet on including anterior and posterior whole-body projections and additional focused images as needed. LIMITATIONS: None. FINDINGS: BONES: No increased uptake over the skeleton worrisome for bony metastatic lesions. Mild increased uptake at the bilateral shoulders from osteoarthritis. Mild increased uptake both knees an d both ankles likely from osteoarthritis. KIDNEYS: Symmetric excretion without obstruction. OTHER: No other significant finding. IMPRESSION: No areas of increased uptake worrisome for bony metastatic disease COMMENT: PQRS 3570F: Current bone scan is compared with any available plain radiographs, prior bone scans, and CT/MRI. TECHNICAL DOCUMENTATION: JOB ID: [id number] [employer]- All Rights Reserved
[2017-03-02] MEDS: AZITHROMYCIN 250 MG TABLET PO SCH (17:04)
--- NOTE | 2017-03-02 17:20 | PDOC PROGRESS REPORT ---
Subjective Progress Note for:: 03/02/17 Subjective:: Is a follow-up visit for acute respiratory failure with hypoxemia. States he feels better overall. He is status post paracentesis today. We have discussed in detail about his present condition. Denies any current chest pain but describes previous bilateral leg pain. Physical Exam Vital Signs: Temp Pulse Resp BP Pulse Ox 97.6 F 84 19 127/70 H 94 03/02/17 08:13 03/02/17 08:13 03/02/17 08:13 03/02/17 08:13 03/02/17 08:13 Intake & Output 03/01/17 03/02/17 03/03/17 06:59 06:59 06:59 Intake Total 2718 Output Total 1460 Balance 1258 Weight 97.9 kg Physical exam: General: This is a well-developed well-nourished appearing white male resting in bed currently in no acute distress Heart: Regular rate and rhythm no murmurs rubs or gallops. Lungs: Diminished at the bases bilaterally with equal rise and fall of the chest Abdomen: Distended Extremities: Anasarca is present. pulses are 1+ Neuro: Awake alert oriented 3. Cranial nerves are grossly intact Results Laboratory Results: 03/02/17 06:03 03/02/17 04:53 03/01/17 03/01/17 03/02/17 11:30 14:49 04:53 WBC 14.9 H RBC 2.71 L Hgb 10.8 L D Hct 32.6 L MCV 120 H MCH 39.9 H MCHC 33.1 RDW 18.5 H Plt Count 42 L Seg Neutrophils % 90.2 H Lymphocytes % 5.1 L Monocytes % 4.4 Eosinophils % 0.0 Basophils % 0.3 Absolute Neutrophils 13.4 H Absolute Lymphocytes 0.8 Absolute Monocytes 0.7 Absolute Eosinophils 0.0 Absolute Basophils 0.0 Sodium Potassium Chloride Carbon Dioxide Anion Gap BUN Creatinine Est GFR ( Amer) Est GFR (Non-Af Amer) Glucose Calcium Magnesium Total Bilirubin AST ALT Alkaline Phosphatase Total Protein Albumin Vitamin B12 > 1000.0 H Folate 17.70 Fluid Type Fluid Source Fluid Color Fluid Appearance Fluid Viscosity Fluid WBC Fluid RBC Blood Type AB POSITIVE 03/02/17 03/02/17 03/02/17 04:53 06:03 09:23 WBC 14.3 H RBC 2.62 L Hgb 10.5 L Hct 31.6 L MCV 121 H MCH 40.0 H MCHC 33.2 RDW 18.8 H Plt Count 80 L Seg Neutrophils % Lymphocytes % Monocytes % Eosinophils % Basophils % Absolute Neutrophils Absolute Lymphocytes Absolute Monocytes Absolute Eosinophils Absolute Basophils Sodium 137.6 Potassium 4.2 Chloride 108 H Carbon Dioxide 19 L Anion Gap 11 BUN 26 H Creatinine 0.79 Est GFR ( Amer) > 60 Est GFR (Non-Af Amer) > 60 Glucose 203 H Calcium 8.0 L Magnesium 2.1 Total Bilirubin 3.6 H AST 70 H ALT 45 Alkaline Phosphatase 192 H Total Protein 8.0 Albumin 2.0 L Vitamin B12 Folate Fluid Type PERITONEAL Fluid Source ASCITES Fluid Color YELLOW Fluid Appearance HAZY Fluid Viscosity LIQUID Fluid WBC 214 Fluid RBC 445 Blood Type Impressions: Chest X-Ray 02/28/17 18:54 IMPRESSION: Abnormal opacities in the lungs bilaterally, acuity indeterminate. See above. Chest/Abdomen CTA 02/28/17 21:55 IMPRESSION: Findings consistent with diffuse pulmonary, mediastinal, osseous, and abdominal metastatic disease. No emboli visualized in the main pulmonary arteries or the segmental branches.. Abdomen/Pelvis CT 03/01/17 00:00 IMPRESSION: Metastatic disease pattern consistent with CT from of the chest, 1 day prior. There are innumerable pulmonary nodules of the lung bases, retroperitoneal lymphadenopathy, indeterminate liver lesions, and moderate ascites. Venous Doppler Study 03/01/17 00:00 IMPRESSION: NO EVIDENCE DVT OR SVT IN EITHER LEG. Paracentesis Ultrasound 03/02/17 00:00 IMPRESSION: Ultrasound-guided therapeutic and diagnostic paracentesis Assessment & Plan - Diagnosis (1) Acute hypoxemic respiratory failure Is this a current diagnosis for this admission?: YesPlan: Continue oxygen for now. Patient is doing much better. Respiratory failure is due to underlying cancer. (2) Cirrhosis of liver Qualifiers: Hepatic cirrhosis type: alcoholic cirrhosis Is this a current diagnosis for this admission?: YesPlan: Continue diuresis for anasarca (3) Pulmonary metastases Qualifiers: Laterality: unspecified laterality Qualified Code(s): C78.00 - Secondary malignant neoplasm of unspecified lung Is this a current diagnosis for this admission?: YesPlan: Oncology services are following. Cytology for paracentesis (4) Thrombocytopenia Is this a current diagnosis for this admission?: YesPlan: Status post platelet transfusion. Platelets are now up to 80. Continue to monitor (5) Right heart failure Is this a current diagnosis for this admission?: Yes (6) Sepsis Qualifiers: Sepsis type: sepsis due to unspecified organism Qualified Code(s): A41.9 - Sepsis, unspecified organism Is this a current diagnosis for this admission?: Yes - Time Time Spent with patient: 35 or more minutes - Inpatient Certification Medical Necessity: Need Close Monitoring Due to Risk of Patient Decompensation
[2017-03-02] MEDS: FUROSEMIDE INJ/PF 40 MG/4 ML SDV IV SCH (21:28)
[2017-03-03 05:12] LABS: ANION GAP 7 (5-19); BLOOD UREA NITROGEN 23 mg/dL (7-20); CALCIUM 8.1 mg/dL (8.4-10.2); CARBON DIOXIDE 22 mmol/L (22-30); CHLORIDE 108 mmol/L (98-107); CREATININE RESULT 0.77 mg/dL (0.52-1.25); GLUCOSE 143 mg/dL (75-110); SODIUM 136.9 mmol/L (137-145)
[2017-03-03 05:16] LABS: POTASSIUM 3.1 mmol/L (3.6-5.0)
[2017-03-03 05:59] LABS: ABSOLUTE LYMPHOCYTES (AUTO) 0.9 10^3/uL (0.5-4.7); ABSOLUTE MONOCYTES (AUTO) 0.5 10^3/uL (0.1-1.4); ABSOLUTE NEUT (AUTO) 7.4 10^3/uL (1.7-8.2); BASOPHILS % (AUTO) 0.2 % (0-2); EOSINOPHILS % (AUTO) 0.5 % (0-6); HEMATOCRIT 32.4 % (37.9-51.0); HGB HCT DIFFERENCE 0.6; LYMPHOCYTES % (AUTO) 9.7 % (13-45); MEAN CORPUSCULAR HEMOGLOBIN 40.1 pg (27.0-33.4); MEAN CORPUSCULAR HGB CONC 33.9 g/dL (32.0-36.0); MEAN CORPUSCULAR VOLUME 118 fl (80-97); MONOCYTES % (AUTO) 6.1 % (3-13); RED BLOOD COUNT 2.75 10^6/uL (4.35-5.55); RED CELL DISTRIBUTION WIDTH 18.7 % (11.5-14.0); SEGMENTED NEUTROPHILS % (AUTO) 83.5 % (42-78); WHITE BLOOD COUNT 8.9 10^3/uL (4.0-10.5)
[2017-03-03 06:04] LABS: ANISOCYTOSIS 2+; BURR CELLS SLIGHT; OVALOCYTES SLIGHT; POIKILOCYTOSIS SLIGHT; TOXIC GRANULATION SLIGHT
--- NOTE | 2017-03-03 08:31 | PDOC PROGRESS REPORT ---
Subjective Progress Note for:: 03/03/17 Subjective:: Pt doing better today, needs PT/OT to work with him Physical Exam Vital Signs: Temp Pulse Resp BP Pulse Ox 98.0 F 90 20 124/82 94 03/03/17 05:12 03/03/17 07:00 03/03/17 05:12 03/03/17 05:12 03/03/17 05:12 Intake & Output 03/02/17 03/03/17 03/04/17 06:59 06:59 06:59 Intake Total 2718 1809 Output Total 1460 2825 Balance 1258 -1016 Weight 97.9 kg 97 kg General appearance: PRESENT: no acute distress, well-developed, well-nourished Head exam: PRESENT: atraumatic, normocephalic Eye exam: PRESENT: conjunctiva pink, EOMI, PERRLA. ABSENT: scleral icterus Ear exam: PRESENT: normal external ear exam Mouth exam: PRESENT: moist, tongue midline Neck exam: ABSENT: carotid bruit, JVD, lymphadenopathy, thyromegaly Respiratory exam: PRESENT: clear to auscultation allan. ABSENT: rales, rhonchi, wheezes Cardiovascular exam: PRESENT: RRR. ABSENT: diastolic murmur, rubs, systolic murmur Pulses: PRESENT: normal dorsalis pedis pul Vascular exam: PRESENT: normal capillary refill GI/Abdominal exam: PRESENT: normal bowel sounds, soft. ABSENT: distended, guarding, mass, organolmegaly, rebound, tenderness Rectal exam: PRESENT: deferred Extremities exam: PRESENT: full ROM. ABSENT: calf tenderness, clubbing, pedal edema Neurological exam: PRESENT: alert, awake, oriented to person, oriented to place , oriented to time, oriented to situation, CN II-XII grossly intact. ABSENT: motor sensory deficit Psychiatric exam: PRESENT: appropriate affect, normal mood. ABSENT: homicidal ideation, suicidal ideation Skin exam: PRESENT: dry, intact, warm. ABSENT: cyanosis, rash Results Laboratory Results: 03/03/17 04:29 03/03/17 04:29 03/02/17 03/03/17 03/03/17 09:23 04:29 04:29 WBC 8.9 RBC 2.75 L Hgb 11.0 L Hct 32.4 L MCV 118 H MCH 40.1 H MCHC 33.9 RDW 18.7 H Plt Count 57 L Seg Neutrophils % 83.5 H Lymphocytes % 9.7 L Monocytes % 6.1 Eosinophils % 0.5 Basophils % 0.2 Absolute Neutrophils 7.4 Absolute Lymphocytes 0.9 Absolute Monocytes 0.5 Absolute Eosinophils 0.0 Absolute Basophils 0.0 Sodium 136.9 L Potassium 3.1 L D Chloride 108 H Carbon Dioxide 22 Anion Gap 7 BUN 23 H Creatinine 0.77 Est GFR ( Amer) > 60 Est GFR (Non-Af Amer) > 60 Glucose 143 H Calcium 8.1 L Magnesium 2.0 Fluid Type PERITONEAL Fluid Source ASCITES Fluid Color YELLOW Fluid Appearance HAZY Fluid Viscosity LIQUID Fluid WBC 214 Fluid RBC 445 Impressions: Chest X-Ray 02/28/17 18:54 IMPRESSION: Abnormal opacities in the lungs bilaterally, acuity indeterminate. See above. Chest/Abdomen CTA 02/28/17 21:55 IMPRESSION: Findings consistent with diffuse pulmonary, mediastinal, osseous, and abdominal metastatic disease. No emboli visualized in the main pulmonary arteries or the segmental branches.. Abdomen/Pelvis CT 03/01/17 00:00 IMPRESSION: Metastatic disease pattern consistent with CT from of the chest, 1 day prior. There are innumerable pulmonary nodules of the lung bases, retroperitoneal lymphadenopathy, indeterminate liver lesions, and moderate ascites. Venous Doppler Study 03/01/17 00:00 IMPRESSION: NO EVIDENCE DVT OR SVT IN EITHER LEG. Body Scan Nuclear Medicine 03/02/17 00:00 IMPRESSION: No areas of increased uptake worrisome for bony metastatic disease Paracentesis Ultrasound 03/02/17 00:00 IMPRESSION: Ultrasound-guided therapeutic and diagnostic paracentesis Assessment & Plan - Diagnosis (1) Pulmonary metastases Qualifiers: Laterality: unspecified laterality Qualified Code(s): C78.00 - Secondary malignant neoplasm of unspecified lung Is this a current diagnosis for this admission?: YesPlan: Awaiting tap cytology, pt should work w/ PT today to see if he can go home or if rehab stay needed. If cytology negative, would recommend liver bx - Time Time Spent with patient: 15-24 minutes Critical Time spent with patient: 15-24 minutes - Inpatient Certification Based on my medical assessment, after consideration of the patient's comorbidities, presenting symptoms, or acuity I expect that the services needed warrant INPATIENT care.: Yes I certify that my determination is in accordance with my understanding of Medicare's requirements for reasonable and necessary INPATIENT services [42 CFR 412.3e].: Yes Medical Necessity: Need For Continuous Telemetry Monitoring, Need for Surgery
[2017-03-03] MEDS ORDERED: POTASSIUM CHLORIDE 10 MEQ TABLET.SA PO ONE (08:33)
[2017-03-03] MEDS: FUROSEMIDE INJ/PF 40 MG/4 ML SDV IV SCH (09:38)
[2017-03-03] MEDS: MULTIVITAMIN TABLET PO SCH (09:43)
[2017-03-03] MEDS: FOLIC ACID 1 MG TABLET PO SCH (09:43)
[2017-03-03] MEDS: THIAMINE HCL 100 MG TABLET PO SCH (09:43)
[2017-03-03] MEDS: OXYCODONE-ACETAMINOPHEN 5-325 MG TABLET PO PRN ×2 (10:31→18:44)
[2017-03-03] MEDS: CEFTRIAXONE 1 GM/D5W RTU 1 GM/50 ML RTUPB IV SCH (14:26)
--- NOTE | 2017-03-03 15:01 | PDOC PROGRESS REPORT ---
Subjective Progress Note for:: 03/03/17 Subjective:: Is a follow-up visit for acute respiratory failure with hypoxemia. States he feels better overall. He is status post paracentesis. Pathology is still pending. Denies any current chest pain but describes previous bilateral leg pain. Physical Exam Vital Signs: Temp Pulse Resp BP Pulse Ox 98.2 F 92 20 137/72 H 93 03/03/17 07:48 03/03/17 07:48 03/03/17 07:48 03/03/17 07:48 03/03/17 07:48 Intake & Output 03/02/17 03/03/17 03/04/17 06:59 06:59 06:59 Intake Total 2718 1809 Output Total 1460 2825 Balance 1258 -1016 Weight 97.9 kg 97 kg Physical exam: General: This is a well-developed well-nourished appearing white male resting in bed currently in no acute distress Heart: Regular rate and rhythm no murmurs rubs or gallops. Lungs: Diminished at the bases bilaterally with equal rise and fall of the chest. Tachypneic with difficulty finishing sentences. Abdomen: Distended Extremities: Anasarca is present. pulses are 1+ Neuro: Awake alert oriented 3. Cranial nerves are grossly intact Results Laboratory Results: 03/03/17 04:29 03/03/17 04:29 03/03/17 03/03/17 04:29 04:29 WBC 8.9 RBC 2.75 L Hgb 11.0 L Hct 32.4 L MCV 118 H MCH 40.1 H MCHC 33.9 RDW 18.7 H Plt Count 57 L Seg Neutrophils % 83.5 H Lymphocytes % 9.7 L Monocytes % 6.1 Eosinophils % 0.5 Basophils % 0.2 Absolute Neutrophils 7.4 Absolute Lymphocytes 0.9 Absolute Monocytes 0.5 Absolute Eosinophils 0.0 Absolute Basophils 0.0 Sodium 136.9 L Potassium 3.1 L D Chloride 108 H Carbon Dioxide 22 Anion Gap 7 BUN 23 H Creatinine 0.77 Est GFR ( Amer) > 60 Est GFR (Non-Af Amer) > 60 Glucose 143 H Calcium 8.1 L Magnesium 2.0 Impressions: Chest X-Ray 02/28/17 18:54 IMPRESSION: Abnormal opacities in the lungs bilaterally, acuity indeterminate. See above. Chest/Abdomen CTA 02/28/17 21:55 IMPRESSION: Findings consistent with diffuse pulmonary, mediastinal, osseous, and abdominal metastatic disease. No emboli visualized in the main pulmonary arteries or the segmental branches.. Abdomen/Pelvis CT 03/01/17 00:00 IMPRESSION: Metastatic disease pattern consistent with CT from of the chest, 1 day prior. There are innumerable pulmonary nodules of the lung bases, retroperitoneal lymphadenopathy, indeterminate liver lesions, and moderate ascites. Venous Doppler Study 03/01/17 00:00 IMPRESSION: NO EVIDENCE DVT OR SVT IN EITHER LEG. Body Scan Nuclear Medicine 03/02/17 00:00 IMPRESSION: No areas of increased uptake worrisome for bony metastatic disease Paracentesis Ultrasound 03/02/17 00:00 IMPRESSION: Ultrasound-guided therapeutic and diagnostic paracentesis Assessment & Plan - Diagnosis (1) Acute hypoxemic respiratory failure Is this a current diagnosis for this admission?: YesPlan: Continue oxygen for now. Patient is doing much better. Respiratory failure is possibly due to underlying cancer. (2) Cirrhosis of liver Qualifiers: Hepatic cirrhosis type: alcoholic cirrhosis Is this a current diagnosis for this admission?: YesPlan: Continue diuresis for anasarca (3) Pulmonary metastases Qualifiers: Laterality: unspecified laterality Qualified Code(s): C78.00 - Secondary malignant neoplasm of unspecified lung Is this a current diagnosis for this admission?: YesPlan: Oncology services are following. Cytology for paracentesis (4) Thrombocytopenia Is this a current diagnosis for this admission?: YesPlan: Status post platelet transfusion. Platelets are trending down.. Continue to monitor (5) Right heart failure Is this a current diagnosis for this admission?: YesPlan: Improved. Continue diuresis (6) Sepsis Qualifiers: Sepsis type: sepsis due to unspecified organism Qualified Code(s): A41.9 - Sepsis, unspecified organism Is this a current diagnosis for this admission?: Yes - Time Time Spent with patient: 25-34 minutes - Inpatient Certification Medical Necessity: Need Close Monitoring Due to Risk of Patient Decompensation
[2017-03-03] MEDS: AZITHROMYCIN 250 MG TABLET PO SCH (18:39)
[2017-03-03] MEDS: FUROSEMIDE 40 MG TABLET PO SCH (18:39)
[2017-03-04 05:42] LABS: ANION GAP 9 (5-19); BLOOD UREA NITROGEN 17 mg/dL (7-20); CALCIUM 8.3 mg/dL (8.4-10.2); CARBON DIOXIDE 24 mmol/L (22-30); CHLORIDE 105 mmol/L (98-107); CREATININE RESULT 0.67 mg/dL (0.52-1.25); GLUCOSE 153 mg/dL (75-110); MAGNESIUM 1.8 mg/dL (1.6-2.3); POTASSIUM 3.1 mmol/L (3.6-5.0); SODIUM 137.8 mmol/L (137-145)
[2017-03-04 05:48] LABS: HEMATOCRIT 35.6 % (37.9-51.0); HEMOGLOBIN 12.2 g/dL (13.5-17.0); MEAN CORPUSCULAR HEMOGLOBIN 40.9 pg (27.0-33.4); MEAN CORPUSCULAR HGB CONC 34.3 g/dL (32.0-36.0); MEAN CORPUSCULAR VOLUME 119 fl (80-97); RED BLOOD COUNT 2.99 10^6/uL (4.35-5.55); RED CELL DISTRIBUTION WIDTH 18.3 % (11.5-14.0); WHITE BLOOD COUNT 10.8 10^3/uL (4.0-10.5)
[2017-03-04 06:21] LABS: ABSOLUTE NEUT (AUTO) 8.9 10^3/uL (1.7-8.2); BASOPHILS % (AUTO) 0.5 % (0-2); EOSINOPHILS % (AUTO) 1.2 % (0-6); LYMPHOCYTES % (AUTO) 9.7 % (13-45); MONOCYTES % (AUTO) 5.6 % (3-13)
[2017-03-04 06:22] LABS: ABSOLUTE BASOPHILS # (AUTO) 0.1 10^3/uL (0.0-0.2); ABSOLUTE EOSINOPHILS # (AUTO) 0.1 10^3/uL (0.0-0.6); ABSOLUTE MONOCYTES (AUTO) 0.6 10^3/uL (0.1-1.4)
[2017-03-04 06:25] LABS: ANISOCYTOSIS 2+; POLYCHROMASIA SLIGHT; ROULEAUX SLIGHT; SCHISTOCYTES SLIGHT; TOXIC GRANULATION 1+
--- NOTE | 2017-03-04 08:46 | PDOC PROGRESS REPORT ---
Subjective Progress Note for:: 03/04/17 Subjective:: No acute events overnight, pt walked yesterday w/ PT, still feels weak but eating this am Physical Exam Vital Signs: Temp Pulse Resp BP Pulse Ox 98.2 F 96 28 H 124/77 92 03/04/17 08:00 03/04/17 08:00 03/04/17 08:00 03/04/17 08:00 03/04/17 03:57 Intake & Output 03/03/17 03/04/17 03/05/17 06:59 06:59 06:59 Intake Total 1809 653 Output Total 2821 6090 Balance -1016 -1645 Weight 97 kg 90.9 kg General appearance: PRESENT: no acute distress, well-developed, well-nourished Head exam: PRESENT: atraumatic, normocephalic Eye exam: PRESENT: conjunctiva pink, EOMI, PERRLA. ABSENT: scleral icterus Ear exam: PRESENT: normal external ear exam Mouth exam: PRESENT: moist, tongue midline Neck exam: ABSENT: carotid bruit, JVD, lymphadenopathy, thyromegaly Respiratory exam: PRESENT: clear to auscultation allan. ABSENT: rales, rhonchi, wheezes Cardiovascular exam: PRESENT: RRR. ABSENT: diastolic murmur, rubs, systolic murmur Pulses: PRESENT: normal dorsalis pedis pul Vascular exam: PRESENT: normal capillary refill GI/Abdominal exam: PRESENT: normal bowel sounds, soft. ABSENT: distended, guarding, mass, organolmegaly, rebound, tenderness Rectal exam: PRESENT: deferred Extremities exam: PRESENT: full ROM. ABSENT: calf tenderness, clubbing, pedal edema Neurological exam: PRESENT: alert, awake, oriented to person, oriented to place , oriented to time, oriented to situation, CN II-XII grossly intact. ABSENT: motor sensory deficit Psychiatric exam: PRESENT: appropriate affect, normal mood. ABSENT: homicidal ideation, suicidal ideation Skin exam: PRESENT: dry, intact, warm. ABSENT: cyanosis, rash Results Laboratory Results: 03/04/17 04:50 03/04/17 04:50 03/04/17 03/04/17 04:50 04:50 WBC 10.8 H RBC 2.99 L Hgb 12.2 L Hct 35.6 L MCV 119 H MCH 40.9 H MCHC 34.3 RDW 18.3 H Plt Count 51 L Seg Neutrophils % 83.0 H Lymphocytes % 9.7 L Monocytes % 5.6 Eosinophils % 1.2 Basophils % 0.5 Absolute Neutrophils 8.9 H Absolute Lymphocytes 1.0 Absolute Monocytes 0.6 Absolute Eosinophils 0.1 Absolute Basophils 0.1 Sodium 137.8 Potassium 3.1 L Chloride 105 Carbon Dioxide 24 Anion Gap 9 BUN 17 Creatinine 0.67 Est GFR ( Amer) > 60 Est GFR (Non-Af Amer) > 60 Glucose 153 H Calcium 8.3 L Magnesium 1.8 Impressions: Chest X-Ray 02/28/17 18:54 IMPRESSION: Abnormal opacities in the lungs bilaterally, acuity indeterminate. See above. Chest/Abdomen CTA 02/28/17 21:55 IMPRESSION: Findings consistent with diffuse pulmonary, mediastinal, osseous, and abdominal metastatic disease. No emboli visualized in the main pulmonary arteries or the segmental branches.. Abdomen/Pelvis CT 03/01/17 00:00 IMPRESSION: Metastatic disease pattern consistent with CT from of the chest, 1 day prior. There are innumerable pulmonary nodules of the lung bases, retroperitoneal lymphadenopathy, indeterminate liver lesions, and moderate ascites. Venous Doppler Study 03/01/17 00:00 IMPRESSION: NO EVIDENCE DVT OR SVT IN EITHER LEG. Body Scan Nuclear Medicine 03/02/17 00:00 IMPRESSION: No areas of increased uptake worrisome for bony metastatic disease Paracentesis Ultrasound 03/02/17 00:00 IMPRESSION: Ultrasound-guided therapeutic and diagnostic paracentesis Assessment & Plan - Diagnosis (1) Pulmonary metastases Qualifiers: Laterality: unspecified laterality Qualified Code(s): C78.00 - Secondary malignant neoplasm of unspecified lung Is this a current diagnosis for this admission?: YesPlan: Cytology negative, d/w radiology, hope that liver bx would be possible, pt may need FFP and plt prior, today spent >35 min in coordination of care and discussion w/ pt - Time Time Spent with patient: 35 or more minutes Critical Time spent with patient: 35 or more minutes - Inpatient Certification Based on my medical assessment, after consideration of the patient's comorbidities, presenting symptoms, or acuity I expect that the services needed warrant INPATIENT care.: Yes I certify that my determination is in accordance with my understanding of Medicare's requirements for reasonable and necessary INPATIENT services [42 CFR 412.3e].: Yes Medical Necessity: Need for Surgery
[2017-03-04] MEDS: MULTIVITAMIN TABLET PO SCH (10:06)
[2017-03-04] MEDS: FOLIC ACID 1 MG TABLET PO SCH (10:06)
[2017-03-04] MEDS: FUROSEMIDE 40 MG TABLET PO SCH ×2 (10:07→17:31)
[2017-03-04] MEDS: THIAMINE HCL 100 MG TABLET PO SCH (10:07)
[2017-03-04] MEDS ORDERED: POTASSI CL 20 MEQ/50 ML RIDER 50 ML IV ONE (11:30)
[2017-03-04] MEDS ORDERED: POTASSIUM CHLORIDE 10 MEQ TABLET.SA PO ONE (11:30)
[2017-03-04] MEDS: OXYCODONE-ACETAMINOPHEN 5-325 MG TABLET PO PRN ×2 (12:26→19:11)
--- NOTE | 2017-03-04 14:05 | PDOC PROGRESS REPORT ---
Subjective Progress Note for:: 03/04/17 Subjective:: Is a follow-up visit for acute respiratory failure with hypoxemia. States he feels better overall. He is status post paracentesis. Pathology is negative. Denies any current chest pain. Pain medication has helped some with his headache, leg pain and sleep. Physical Exam Vital Signs: Temp Pulse Resp BP Pulse Ox 98.2 F 96 28 H 124/77 92 03/04/17 08:00 03/04/17 08:00 03/04/17 08:00 03/04/17 08:00 03/04/17 03:57 Intake & Output 03/03/17 03/04/17 03/05/17 06:59 06:59 06:59 Intake Total 1809 653 Output Total 2828 2300 Balance -1016 -1645 Weight 97 kg 90.9 kg Physical exam: General: This is a well-developed well-nourished appearing white male resting in bed currently in no acute distress Heart: Regular rate and rhythm no murmurs rubs or gallops. Lungs: Diminished at the bases bilaterally with equal rise and fall of the chest. Tachypneic at times during the conversation . Abdomen: Distended Extremities: Anasarca is present. pulses are 1+ Neuro: Awake alert oriented 3. Cranial nerves are grossly intact Results Laboratory Results: 03/04/17 04:50 03/04/17 04:50 03/04/17 03/04/17 04:50 04:50 WBC 10.8 H RBC 2.99 L Hgb 12.2 L Hct 35.6 L MCV 119 H MCH 40.9 H MCHC 34.3 RDW 18.3 H Plt Count 51 L Seg Neutrophils % 83.0 H Lymphocytes % 9.7 L Monocytes % 5.6 Eosinophils % 1.2 Basophils % 0.5 Absolute Neutrophils 8.9 H Absolute Lymphocytes 1.0 Absolute Monocytes 0.6 Absolute Eosinophils 0.1 Absolute Basophils 0.1 Sodium 137.8 Potassium 3.1 L Chloride 105 Carbon Dioxide 24 Anion Gap 9 BUN 17 Creatinine 0.67 Est GFR ( Amer) > 60 Est GFR (Non-Af Amer) > 60 Glucose 153 H Calcium 8.3 L Magnesium 1.8 Impressions: Chest X-Ray 02/28/17 18:54 IMPRESSION: Abnormal opacities in the lungs bilaterally, acuity indeterminate. See above. Chest/Abdomen CTA 02/28/17 21:55 IMPRESSION: Findings consistent with diffuse pulmonary, mediastinal, osseous, and abdominal metastatic disease. No emboli visualized in the main pulmonary arteries or the segmental branches.. Abdomen/Pelvis CT 03/01/17 00:00 IMPRESSION: Metastatic disease pattern consistent with CT from of the chest, 1 day prior. There are innumerable pulmonary nodules of the lung bases, retroperitoneal lymphadenopathy, indeterminate liver lesions, and moderate ascites. Venous Doppler Study 03/01/17 00:00 IMPRESSION: NO EVIDENCE DVT OR SVT IN EITHER LEG. Body Scan Nuclear Medicine 03/02/17 00:00 IMPRESSION: No areas of increased uptake worrisome for bony metastatic disease Paracentesis Ultrasound 03/02/17 00:00 IMPRESSION: Ultrasound-guided therapeutic and diagnostic paracentesis Assessment & Plan - Diagnosis (1) Acute hypoxemic respiratory failure Is this a current diagnosis for this admission?: YesPlan: Continue oxygen for now. Patient is doing much better. Respiratory failure is possibly due to underlying cancer. Unfortunately, we were not able to get any cells from the paracentesis. We will need to pursue liver biopsy next. (2) Cirrhosis of liver Qualifiers: Hepatic cirrhosis type: alcoholic cirrhosis Is this a current diagnosis for this admission?: YesPlan: Continue diuresis for anasarca (3) Pulmonary metastases Qualifiers: Laterality: unspecified laterality Qualified Code(s): C78.00 - Secondary malignant neoplasm of unspecified lung Is this a current diagnosis for this admission?: YesPlan: Oncology services are following. Cytology for paracentesis was negative. Patient will go for liver biopsy. We will need to ensure his platelets are up to speed and that his INR is acceptable to the radiologist for his procedure. (4) Thrombocytopenia Is this a current diagnosis for this admission?: YesPlan: Status post platelet transfusion. Platelets are trending down again. Plans are to transfuse tomorrow prior to procedure. Continue to monitor (5) Right heart failure Is this a current diagnosis for this admission?: YesPlan: Improved. Continue diuresis (6) Sepsis Qualifiers: Sepsis type: sepsis due to unspecified organism Qualified Code(s): A41.9 - Sepsis, unspecified organism Plan: Resolved. - Time Time Spent with patient: 15-24 minutes - Inpatient Certification Medical Necessity: Significant Comorbidiites Make Outpatient Treatment Too Risky , Need Close Monitoring Due to Risk of Patient Decompensation
[2017-03-04 15:26] LABS: ARTERIAL BLOOD BASE EXCESS 2.4 mmol/L; ARTERIAL BLOOD O2 SATURATION 90.4 % (94-98)
[2017-03-04] MEDS ORDERED: DILTIAZEM HCL INJ 25 MG/5 ML VIAL ONE (15:32)
[2017-03-04] MEDS ORDERED: DILTIAZEM HCL/D5W 125 ML IV PRN (15:39)
--- NOTE | 2017-03-04 15:45 | PDOC PROGRESS REPORT ---
Subjective Progress Note for:: 03/03/17 Subjective:: I am resting but I feel a little better Physical Exam Vital Signs: Temp Pulse Resp BP Pulse Ox 98.2 F 96 28 H 124/77 92 03/04/17 08:00 03/04/17 08:00 03/04/17 08:00 03/04/17 08:00 03/04/17 03:57 Intake & Output 03/03/17 03/04/17 03/05/17 06:59 06:59 06:59 Intake Total 1809 653 Output Total 2823 8220 Balance -1016 -1640 Weight 97 kg 90.9 kg General appearance: PRESENT: no acute distress, cooperative, disheveled, thin, well-developed Head exam: PRESENT: atraumatic, normocephalic Eye exam: PRESENT: conjunctiva pale, EOMI Mouth exam: PRESENT: dry mucosa, neck supple Teeth exam: PRESENT: poor dentation Neck exam: ABSENT: carotid bruit, JVD, lymphadenopathy, thyromegaly Respiratory exam: PRESENT: decreased breath sounds, prolonged expiratory phas, rhonchi, symmetrical, unlabored Cardiovascular exam: PRESENT: RRR, +S1, +S2 Pulses: PRESENT: normal radial pulses GI/Abdominal exam: PRESENT: normal bowel sounds, soft. ABSENT: distended, guarding, mass, organolmegaly, rebound, tenderness Rectal exam: PRESENT: deferred Gentrourinary exam: PRESENT: indwelling catheter Musculoskeletal exam: PRESENT: normal inspection Neurological exam: PRESENT: awake Psychiatric exam: PRESENT: flat affect Skin exam: PRESENT: dry, warm, other - Spidery angiomata Results Laboratory Results: 03/04/17 04:50 03/04/17 04:50 03/04/17 03/04/17 03/04/17 04:50 04:50 15:13 WBC 10.8 H RBC 2.99 L Hgb 12.2 L Hct 35.6 L MCV 119 H MCH 40.9 H MCHC 34.3 RDW 18.3 H Plt Count 51 L Seg Neutrophils % 83.0 H Lymphocytes % 9.7 L Monocytes % 5.6 Eosinophils % 1.2 Basophils % 0.5 Absolute Neutrophils 8.9 H Absolute Lymphocytes 1.0 Absolute Monocytes 0.6 Absolute Eosinophils 0.1 Absolute Basophils 0.1 Carbonic Acid 0.89 L HCO3/H2CO3 Ratio 27:1 ABG pH 7.53 H ABG pCO2 29.6 L ABG pO2 51.0 L ABG HCO3 24.2 ABG O2 Saturation 90.4 L ABG Base Excess 2.4 FiO2 50% Sodium 137.8 Potassium 3.1 L Chloride 105 Carbon Dioxide 24 Anion Gap 9 BUN 17 Creatinine 0.67 Est GFR ( Amer) > 60 Est GFR (Non-Af Amer) > 60 Glucose 153 H Calcium 8.3 L Magnesium 1.8 Impressions: Chest X-Ray 02/28/17 18:54 IMPRESSION: Abnormal opacities in the lungs bilaterally, acuity indeterminate. See above. Chest/Abdomen CTA 02/28/17 21:55 IMPRESSION: Findings consistent with diffuse pulmonary, mediastinal, osseous, and abdominal metastatic disease. No emboli visualized in the main pulmonary arteries or the segmental branches.. Abdomen/Pelvis CT 03/01/17 00:00 IMPRESSION: Metastatic disease pattern consistent with CT from of the chest, 1 day prior. There are innumerable pulmonary nodules of the lung bases, retroperitoneal lymphadenopathy, indeterminate liver lesions, and moderate ascites. Venous Doppler Study 03/01/17 00:00 IMPRESSION: NO EVIDENCE DVT OR SVT IN EITHER LEG. Body Scan Nuclear Medicine 03/02/17 00:00 IMPRESSION: No areas of increased uptake worrisome for bony metastatic disease Paracentesis Ultrasound 03/02/17 00:00 IMPRESSION: Ultrasound-guided therapeutic and diagnostic paracentesis Assessment & Plan - Diagnosis (1) Acute hypoxemic respiratory failure Is this a current diagnosis for this admission?: No (2) Cirrhosis of liver Qualifiers: Hepatic cirrhosis type: alcoholic cirrhosis Is this a current diagnosis for this admission?: Yes (3) Pulmonary nodule Is this a current diagnosis for this admission?: Yes (4) Hepatitis C Qualifiers: Viral hepatitis chronicity: chronic Hepatic coma status: without hepatic coma Qualified Code(s): B18.2 - Chronic viral hepatitis C Is this a current diagnosis for this admission?: Yes (5) Thrombocytopenia Is this a current diagnosis for this admission?: Yes
--- NOTE | 2017-03-04 15:47 | PDOC PROGRESS REPORT ---
Subjective Progress Note for:: 03/04/17 Subjective:: I am okay Physical Exam Vital Signs: Temp Pulse Resp BP Pulse Ox 98.2 F 96 28 H 124/77 92 03/04/17 08:00 03/04/17 08:00 03/04/17 08:00 03/04/17 08:00 03/04/17 03:57 Intake & Output 03/03/17 03/04/17 03/05/17 06:59 06:59 06:59 Intake Total 1809 653 Output Total 2820 9300 Balance -1016 -1647 Weight 97 kg 90.9 kg General appearance: PRESENT: no acute distress, cooperative, disheveled, thin, well-developed Head exam: PRESENT: atraumatic, normocephalic Eye exam: PRESENT: conjunctiva pale, EOMI Mouth exam: PRESENT: dry mucosa, neck supple, tongue midline Teeth exam: PRESENT: poor dentation Neck exam: ABSENT: carotid bruit, JVD, lymphadenopathy, thyromegaly Respiratory exam: PRESENT: decreased breath sounds, prolonged expiratory phas, rhonchi, symmetrical, unlabored, wheezes Cardiovascular exam: PRESENT: RRR, +S1, +S2 Pulses: PRESENT: normal radial pulses GI/Abdominal exam: PRESENT: normal bowel sounds, soft. ABSENT: distended, guarding, mass, organolmegaly, rebound, tenderness Rectal exam: PRESENT: deferred Musculoskeletal exam: PRESENT: normal inspection Neurological exam: PRESENT: awake Psychiatric exam: PRESENT: flat affect Skin exam: PRESENT: dry, warm Results Laboratory Results: 03/04/17 04:50 03/04/17 04:50 03/04/17 03/04/17 03/04/17 04:50 04:50 15:13 WBC 10.8 H RBC 2.99 L Hgb 12.2 L Hct 35.6 L MCV 119 H MCH 40.9 H MCHC 34.3 RDW 18.3 H Plt Count 51 L Seg Neutrophils % 83.0 H Lymphocytes % 9.7 L Monocytes % 5.6 Eosinophils % 1.2 Basophils % 0.5 Absolute Neutrophils 8.9 H Absolute Lymphocytes 1.0 Absolute Monocytes 0.6 Absolute Eosinophils 0.1 Absolute Basophils 0.1 Carbonic Acid 0.89 L HCO3/H2CO3 Ratio 27:1 ABG pH 7.53 H ABG pCO2 29.6 L ABG pO2 51.0 L ABG HCO3 24.2 ABG O2 Saturation 90.4 L ABG Base Excess 2.4 FiO2 50% Sodium 137.8 Potassium 3.1 L Chloride 105 Carbon Dioxide 24 Anion Gap 9 BUN 17 Creatinine 0.67 Est GFR ( Amer) > 60 Est GFR (Non-Af Amer) > 60 Glucose 153 H Calcium 8.3 L Magnesium 1.8 Impressions: Chest X-Ray 02/28/17 18:54 IMPRESSION: Abnormal opacities in the lungs bilaterally, acuity indeterminate. See above. Chest/Abdomen CTA 02/28/17 21:55 IMPRESSION: Findings consistent with diffuse pulmonary, mediastinal, osseous, and abdominal metastatic disease. No emboli visualized in the main pulmonary arteries or the segmental branches.. Abdomen/Pelvis CT 03/01/17 00:00 IMPRESSION: Metastatic disease pattern consistent with CT from of the chest, 1 day prior. There are innumerable pulmonary nodules of the lung bases, retroperitoneal lymphadenopathy, indeterminate liver lesions, and moderate ascites. Venous Doppler Study 03/01/17 00:00 IMPRESSION: NO EVIDENCE DVT OR SVT IN EITHER LEG. Body Scan Nuclear Medicine 03/02/17 00:00 IMPRESSION: No areas of increased uptake worrisome for bony metastatic disease Paracentesis Ultrasound 03/02/17 00:00 IMPRESSION: Ultrasound-guided therapeutic and diagnostic paracentesis Assessment & Plan - Diagnosis (1) Acute hypoxemic respiratory failure Is this a current diagnosis for this admission?: No (2) Cirrhosis of liver Qualifiers: Hepatic cirrhosis type: alcoholic cirrhosis Is this a current diagnosis for this admission?: Yes (3) Pulmonary nodule Is this a current diagnosis for this admission?: Yes (4) Hepatitis C Qualifiers: Viral hepatitis chronicity: chronic Hepatic coma status: without hepatic coma Qualified Code(s): B18.2 - Chronic viral hepatitis C Is this a current diagnosis for this admission?: Yes (5) Thrombocytopenia Is this a current diagnosis for this admission?: Yes
[2017-03-04] MEDS ORDERED: DILTIAZEM HCL INJ 25 MG/5 ML VIAL IV ONE (16:00)
[2017-03-04] MEDS: AZITHROMYCIN 250 MG TABLET PO SCH (17:31)
--- NOTE | 2017-03-04 17:43 | Progress Note ---
Provider Note Provider Note: I was notified by the nursing staff at 320 that the patient developed hypoxemia and tachycardia with a heart rate up to 150. Stat EKG was done and showed A. fib with RVR. He was completely asymptomatic and did not feel any palpitations. He did not feel that his breathing had changed however it was noted that his oxygen saturations dropped down to 86% and he was initially placed on a Ventimask. Eventually he was changed over to a nonrebreather. The patient was given a stat dose of Cardizem 10 mg IV. He was then transitioned to Cardizem drip with orders to keep his heart rate under 110. Initially his heart rate fell to 115 but then gradually creep back up to 120s prior to the initiation of the Cardizem drip. Patient's current INR is 1.6. He is scheduled to go for biopsy of the liver known history of thrombocytopenia with platelet count down to 57. He has suspicious pulmonary lesions of liver lesions. He likely has an underlying cancer. It is entirely possible that he may have thrown a PE. His last CTA of the chest was done 2 days ago and was negative for any PE. Patient has not been on any anticoagulant secondary to his thrombocytopenia. At this point his platelet count continues to decline and he is due to have a platelet transfusion tomorrow prior to his procedure. For now will refrain from use of heparin
[2017-03-04] MEDS: CEFTRIAXONE 1 GM/D5W RTU 1 GM/50 ML RTUPB IV SCH (18:47)
--- NOTE | 2017-03-04 20:24 | RADIOLOGY REPORT (SQ) ---
EXAM DESCRIPTION: CTA CHEST COMPLETED DATE/TIME: 03/04/2017 7:59 pm REASON FOR STUDY: sudden afib and sob with underlying ca COMPARISON: 02/28/2017. TECHNIQUE: CT scan of the chest performed using helical scanning technique with dynamic intravenous contrast injection. Images reviewed with lung, soft tissue and bone windows. Reconstructed coronal and sagittal MPR images reviewed. Additional 3 dimensional post-processing performed to develop Maximal Intensity Projection images ([place] P). All images stored on PACS. All CT scanners at this facility use dose modulation, iterative reconstruction, and/or weight based d osing when appropriate to reduce radiation dose to as low as reasonably achievable (ALARA). [facility]: Dose Right [facility]: CareDose [facility]: Dose Right [facility]: Teradose 4D [facility]: EyesBot CONTRAST TYPE AND DOSE: 77 mL Isovue 370- low osmolar. RENAL FUNCTION: BUN 17 creatinine 0.67. RADIATION DOSE: 46.31 mGy. LIMITATIONS: None. FINDINGS: LUNGS AND PLEURA: Multiple lung nodules scattered throughout both lungs. Small pleural ef fusions. AORTA AND GREAT VESSELS: No aneurysm or dissection. HEART: No pericardial effusion. PULMONARY ARTERIES: No emboli visualized in the main pulmonary arteries or the segmental branches. HILAR AND MEDIASTINAL STRUCTURES: Extensive mediastinal and hilar adenopathy. HARDWARE: None in the chest. UPPER ABDOMEN: Multiple hepatic lesions. Ascites. Limited exam. THYROID AND OTHER SOFT TISSUES: No masses. No adenopathy. BONES: No acute or significant finding. 3D MIPS: Confirm above findings. OTHER: No other significant finding. IMPRESSION: 1. NORMAL CTA OF THE CHEST. NO PULMONARY EMBOLI. 2. STABLE FINDINGS RELATED TO MALIGNANCY AND METASTATIC INVOLVEMENT WITH NUMEROUS PULMONARY NODULES, MEDIASTINAL AND HILAR ADENOPATHY, LIVER LESIONS, AND ASCITES. SMALL PLEURAL EFFUSIONS. TECHNICAL DOCUMENTATION: JOB ID: [id number] Quality ID # [id number]: Final reports with documentation of one or more dose reduction techniques (e.g., Au tomated exposure control, adjustment of the mA and/or kV according to patient size, use of iterative reconstruction technique) 2010 [employer] All Rights Reserved
[2017-03-05 00:58] LABS: PARTIAL THROMBOPLASTIN TIME 38.8 SEC (23.5-35.8); PROTHROMBIN TIME 21.7 SEC (11.4-15.4)
[2017-03-05 04:56] LABS: ABSOLUTE BASOPHILS # (AUTO) 0.1 10^3/uL (0.0-0.2); ABSOLUTE EOSINOPHILS # (AUTO) 0.2 10^3/uL (0.0-0.6); ABSOLUTE LYMPHOCYTES (AUTO) 0.9 10^3/uL (0.5-4.7); ABSOLUTE MONOCYTES (AUTO) 0.8 10^3/uL (0.1-1.4); ABSOLUTE NEUT (AUTO) 10.4 10^3/uL (1.7-8.2); BASOPHILS % (AUTO) 0.8 % (0-2); EOSINOPHILS % (AUTO) 1.4 % (0-6); HEMATOCRIT 34.8 % (37.9-51.0); HEMOGLOBIN 11.7 g/dL (13.5-17.0); LYMPHOCYTES % (AUTO) 7.5 % (13-45); MEAN CORPUSCULAR HEMOGLOBIN 40.8 pg (27.0-33.4); MEAN CORPUSCULAR HGB CONC 33.6 g/dL (32.0-36.0); MEAN CORPUSCULAR VOLUME 121 fl (80-97); MONOCYTES % (AUTO) 6.3 % (3-13); RED BLOOD COUNT 2.87 10^6/uL (4.35-5.55); RED CELL DISTRIBUTION WIDTH 17.4 % (11.5-14.0); WHITE BLOOD COUNT 12.3 10^3/uL (4.0-10.5)
[2017-03-05] MEDS: OXYCODONE-ACETAMINOPHEN 5-325 MG TABLET PO PRN ×3 (05:08→21:18)
[2017-03-05 05:12] LABS: HGB HCT DIFFERENCE 0.3
[2017-03-05 05:20] LABS: ANION GAP 7 (5-19); BLOOD UREA NITROGEN 16 mg/dL (7-20); CALCIUM 7.8 mg/dL (8.4-10.2); CARBON DIOXIDE 23 mmol/L (22-30); CHLORIDE 105 mmol/L (98-107); CREATININE RESULT 0.62 mg/dL (0.52-1.25); GLUCOSE 156 mg/dL (75-110); MAGNESIUM 1.7 mg/dL (1.6-2.3); POTASSIUM 3.3 mmol/L (3.6-5.0); SODIUM 135.1 mmol/L (137-145)
[2017-03-05 05:26] LABS: ANISOCYTOSIS 1+; POIKILOCYTOSIS 3+; POLYCHROMASIA SLIGHT; ROULEAUX 3+
[2017-03-05] MEDS ORDERED: POTASSI CL 20 MEQ/50 ML RIDER 20 MEQ/50 ML RTUPB IV ONE (08:30)
[2017-03-05 10:12] LABS: ARTERIAL BLOOD BASE EXCESS 1.7 mmol/L; ARTERIAL BLOOD O2 SATURATION 73.4 % (94-98)
--- NOTE | 2017-03-05 10:20 | PDOC PROGRESS REPORT ---
Subjective Progress Note for:: 03/05/17 Subjective:: Patient had tachycardia, currently on Cardizem drip, getting FFP as well as platelets, plan for liver biopsy once complete. Physical Exam Vital Signs: Temp Pulse Resp BP Pulse Ox 97.9 F 89 20 127/76 H 97 03/05/17 10:10 03/05/17 10:10 03/05/17 10:10 03/05/17 10:10 03/05/17 10:10 Intake & Output 03/04/17 03/05/17 03/06/17 06:59 06:59 06:59 Intake Total 653 923 316 Output Total 2300 1625 Balance -1647 -702 316 Weight 90.9 kg 93.8 kg General appearance: PRESENT: no acute distress, well-developed, well-nourished Head exam: PRESENT: atraumatic, normocephalic Eye exam: PRESENT: conjunctiva pink, EOMI, PERRLA. ABSENT: scleral icterus Ear exam: PRESENT: normal external ear exam Mouth exam: PRESENT: moist, tongue midline Neck exam: ABSENT: carotid bruit, JVD, lymphadenopathy, thyromegaly Respiratory exam: PRESENT: clear to auscultation allan. ABSENT: rales, rhonchi, wheezes Cardiovascular exam: PRESENT: RRR. ABSENT: diastolic murmur, rubs, systolic murmur Pulses: PRESENT: normal dorsalis pedis pul Vascular exam: PRESENT: normal capillary refill GI/Abdominal exam: PRESENT: normal bowel sounds, soft. ABSENT: distended, guarding, mass, organolmegaly, rebound, tenderness Rectal exam: PRESENT: deferred Extremities exam: PRESENT: full ROM. ABSENT: calf tenderness, clubbing, pedal edema Neurological exam: PRESENT: alert, awake, oriented to person, oriented to place , oriented to time, oriented to situation, CN II-XII grossly intact. ABSENT: motor sensory deficit Psychiatric exam: PRESENT: appropriate affect, normal mood. ABSENT: homicidal ideation, suicidal ideation Skin exam: PRESENT: dry, intact, warm. ABSENT: cyanosis, rash Results Laboratory Results: 03/05/17 04:26 03/05/17 04:26 03/01/17 03/04/17 03/05/17 14:49 15:13 00:38 WBC RBC Hgb Hct MCV MCH MCHC RDW Plt Count Seg Neutrophils % Lymphocytes % Monocytes % Eosinophils % Basophils % Absolute Neutrophils Absolute Lymphocytes Absolute Monocytes Absolute Eosinophils Absolute Basophils Carbonic Acid 0.89 L HCO3/H2CO3 Ratio 27:1 ABG pH 7.53 H ABG pCO2 29.6 L ABG pO2 51.0 L ABG HCO3 24.2 ABG O2 Saturation 90.4 L ABG Base Excess 2.4 FiO2 50% Sodium Potassium Chloride Carbon Dioxide Anion Gap BUN Creatinine Est GFR ( Amer) Est GFR (Non-Af Amer) Glucose Calcium Magnesium Blood Type AB POSITIVE AB POSITIVE 03/05/17 03/05/17 04:26 04:26 WBC 12.3 H RBC 2.87 L Hgb 11.7 L Hct 34.8 L MCV 121 H MCH 40.8 H MCHC 33.6 RDW 17.4 H Plt Count 47 L Seg Neutrophils % 84.0 H Lymphocytes % 7.5 L Monocytes % 6.3 Eosinophils % 1.4 Basophils % 0.8 Absolute Neutrophils 10.4 H Absolute Lymphocytes 0.9 Absolute Monocytes 0.8 Absolute Eosinophils 0.2 Absolute Basophils 0.1 Carbonic Acid HCO3/H2CO3 Ratio ABG pH ABG pCO2 ABG pO2 ABG HCO3 ABG O2 Saturation ABG Base Excess FiO2 Sodium 135.1 L Potassium 3.3 L Chloride 105 Carbon Dioxide 23 Anion Gap 7 BUN 16 Creatinine 0.62 Est GFR ( Amer) > 60 Est GFR (Non-Af Amer) > 60 Glucose 156 H Calcium 7.8 L Magnesium 1.7 Blood Type 03/01/17 09:23 Ascities Fluid Gram Stain - Final 03/01/17 09:23 Ascities Fluid Body Fluid Culture - Final NO AEROBIC OR ANAEROBIC ORGANISMS RECOVERED Impressions: Chest X-Ray 02/28/17 18:54 IMPRESSION: Abnormal opacities in the lungs bilaterally, acuity indeterminate. See above. Abdomen/Pelvis CT 03/01/17 00:00 IMPRESSION: Metastatic disease pattern consistent with CT from of the chest, 1 day prior. There are innumerable pulmonary nodules of the lung bases, retroperitoneal lymphadenopathy, indeterminate liver lesions, and moderate ascites. Venous Doppler Study 03/01/17 00:00 IMPRESSION: NO EVIDENCE DVT OR SVT IN EITHER LEG. Body Scan Nuclear Medicine 03/02/17 00:00 IMPRESSION: No areas of increased uptake worrisome for bony metastatic disease Paracentesis Ultrasound 03/02/17 00:00 IMPRESSION: Ultrasound-guided therapeutic and diagnostic paracentesis Chest/Abdomen CTA 03/04/17 00:00 IMPRESSION: 1. NORMAL CTA OF THE CHEST. NO PULMONARY EMBOLI. 2. STABLE FINDINGS RELATED TO MALIGNANCY AND METASTATIC INVOLVEMENT WITH NUMEROUS PULMONARY NODULES, MEDIASTINAL AND HILAR ADENOPATHY, LIVER LESIONS, AND ASCITES. SMALL PLEURAL EFFUSIONS. Assessment & Plan - Diagnosis (1) Pulmonary metastases Qualifiers: Laterality: unspecified laterality Qualified Code(s): C78.00 - Secondary malignant neoplasm of unspecified lung Is this a current diagnosis for this admission?: YesPlan: Liver biopsy planned, further discussion with patient thereafter. Today spent greater than 45 minutes in coordination of care with radiology as well as nursing to iron out all the issues needed prior to biopsy. - Time Time Spent with patient: 35 or more minutes Critical Time spent with patient: 35 or more minutes - Inpatient Certification Medical Necessity: Need for Surgery
[2017-03-05] MEDS: THIAMINE HCL 100 MG TABLET PO SCH (10:53)
[2017-03-05] MEDS: MULTIVITAMIN TABLET PO SCH (10:53)
[2017-03-05] MEDS: FOLIC ACID 1 MG TABLET PO SCH (10:53)
[2017-03-05] MEDS: POTASSIUM CHLORIDE 10 MEQ TABLET.SA PO SCH (10:54)
[2017-03-05] MEDS: FUROSEMIDE 40 MG TABLET PO SCH ×2 (10:54→18:27)
--- NOTE | 2017-03-05 11:02 | EKG REPORT ---
SEVERITY:- ABNORMAL ECG - ATRIAL FIBRILLATION, V-RATE 91-[address] DEPRESSION, PROBABLY RATE RELATED PROLONGED QT INTERVAL : Confirmed by: Estefani Moncada MD 05-Mar-2017 11:01:54
--- NOTE | 2017-03-05 11:41 | PDOC PROGRESS REPORT ---
Subjective Progress Note for:: 03/05/17 Subjective:: Confused Physical Exam Vital Signs: Temp Pulse Resp BP Pulse Ox 98.0 F 89 20 123/72 97 03/05/17 10:03/05/17 10:03/05/17 10:26 03/05/17 10:03/05/17 10:10 Intake & Output 03/04/17 03/05/17 03/06/17 06:59 06:59 06:59 Intake Total 653 923 316 Output Total 2300 1625 Balance -1647 -702 316 Weight 90.9 kg 93.8 kg General appearance: PRESENT: no acute distress, cooperative, disheveled, thin, well-developed Head exam: PRESENT: atraumatic, normocephalic Eye exam: PRESENT: conjunctiva pale, EOMI Mouth exam: PRESENT: dry mucosa, neck supple Teeth exam: PRESENT: poor dentation Neck exam: ABSENT: carotid bruit, JVD, lymphadenopathy, thyromegaly Respiratory exam: PRESENT: decreased breath sounds, prolonged expiratory phas, rhonchi, symmetrical, unlabored Cardiovascular exam: PRESENT: irregular rhythm Pulses: PRESENT: normal radial pulses GI/Abdominal exam: PRESENT: normal bowel sounds, soft. ABSENT: distended, guarding, mass, organolmegaly, rebound, tenderness Rectal exam: PRESENT: deferred Gentrourinary exam: PRESENT: indwelling catheter Musculoskeletal exam: PRESENT: normal inspection Neurological exam: PRESENT: awake Psychiatric exam: PRESENT: flat affect Skin exam: PRESENT: dry, warm Results Laboratory Results: 03/05/17 04:26 03/05/17 04:26 03/01/17 03/04/17 03/05/17 14:49 15:13 00:38 WBC RBC Hgb Hct MCV MCH MCHC RDW Plt Count Seg Neutrophils % Lymphocytes % Monocytes % Eosinophils % Basophils % Absolute Neutrophils Absolute Lymphocytes Absolute Monocytes Absolute Eosinophils Absolute Basophils Carbonic Acid 0.89 L HCO3/H2CO3 Ratio 27:1 ABG pH 7.53 H ABG pCO2 29.6 L ABG pO2 51.0 L ABG HCO3 24.2 ABG O2 Saturation 90.4 L ABG Base Excess 2.4 FiO2 50% Sodium Potassium Chloride Carbon Dioxide Anion Gap BUN Creatinine Est GFR ( Amer) Est GFR (Non-Af Amer) Glucose Calcium Magnesium Blood Type AB POSITIVE AB POSITIVE 03/05/17 03/05/17 03/05/17 04:26 04:26 09:40 WBC 12.3 H RBC 2.87 L Hgb 11.7 L Hct 34.8 L MCV 121 H MCH 40.8 H MCHC 33.6 RDW 17.4 H Plt Count 47 L Seg Neutrophils % 84.0 H Lymphocytes % 7.5 L Monocytes % 6.3 Eosinophils % 1.4 Basophils % 0.8 Absolute Neutrophils 10.4 H Absolute Lymphocytes 0.9 Absolute Monocytes 0.8 Absolute Eosinophils 0.2 Absolute Basophils 0.1 Carbonic Acid 1.15 HCO3/H2CO3 Ratio 22:1 ABG pH 7.45 ABG pCO2 38.3 ABG pO2 37.1 L* ABG HCO3 25.7 ABG O2 Saturation 73.4 L ABG Base Excess 1.7 FiO2 10% Sodium 135.1 L Potassium 3.3 L Chloride 105 Carbon Dioxide 23 Anion Gap 7 BUN 16 Creatinine 0.62 Est GFR ( Amer) > 60 Est GFR (Non-Af Amer) > 60 Glucose 156 H Calcium 7.8 L Magnesium 1.7 Blood Type 03/01/17 09:23 Ascities Fluid Gram Stain - Final 03/01/17 09:23 Ascities Fluid Body Fluid Culture - Final NO AEROBIC OR ANAEROBIC ORGANISMS RECOVERED Impressions: Chest X-Ray 02/28/17 18:54 IMPRESSION: Abnormal opacities in the lungs bilaterally, acuity indeterminate. See above. Abdomen/Pelvis CT 03/01/17 00:00 IMPRESSION: Metastatic disease pattern consistent with CT from of the chest, 1 day prior. There are innumerable pulmonary nodules of the lung bases, retroperitoneal lymphadenopathy, indeterminate liver lesions, and moderate ascites. Venous Doppler Study 03/01/17 00:00 IMPRESSION: NO EVIDENCE DVT OR SVT IN EITHER LEG. Body Scan Nuclear Medicine 03/02/17 00:00 IMPRESSION: No areas of increased uptake worrisome for bony metastatic disease Paracentesis Ultrasound 03/02/17 00:00 IMPRESSION: Ultrasound-guided therapeutic and diagnostic paracentesis Chest/Abdomen CTA 03/04/17 00:00 IMPRESSION: 1. NORMAL CTA OF THE CHEST. NO PULMONARY EMBOLI. 2. STABLE FINDINGS RELATED TO MALIGNANCY AND METASTATIC INVOLVEMENT WITH NUMEROUS PULMONARY NODULES, MEDIASTINAL AND HILAR ADENOPATHY, LIVER LESIONS, AND ASCITES. SMALL PLEURAL EFFUSIONS. Assessment & Plan - Diagnosis (1) Acute hypoxemic respiratory failure Is this a current diagnosis for this admission?: No (2) Cirrhosis of liver Qualifiers: Hepatic cirrhosis type: alcoholic cirrhosis Is this a current diagnosis for this admission?: YesPlan: Plan to correct coagulations parameters and proceed with liver biopsy (3) Pulmonary nodule Is this a current diagnosis for this admission?: Yes (4) Hepatitis C Qualifiers: Viral hepatitis chronicity: chronic Hepatic coma status: without hepatic coma Qualified Code(s): B18.2 - Chronic viral hepatitis C Is this a current diagnosis for this admission?: Yes (5) Thrombocytopenia Is this a current diagnosis for this admission?: Yes - Plan Summary Plan Summary: Patient apparently had run of A. fib with RVR resulted in hypoxia he is started on Cardizem drip and 100% non-rebreather and is stable at this time
[2017-03-05 12:05] LABS: PROTHROMBIN TIME 18.7 SEC (11.4-15.4)
[2017-03-05 12:11] LABS: HEMATOCRIT 30.7 % (37.9-51.0); HEMOGLOBIN 10.4 g/dL (13.5-17.0); HGB HCT DIFFERENCE 0.5; MEAN CORPUSCULAR HEMOGLOBIN 40.7 pg (27.0-33.4); RED BLOOD COUNT 2.56 10^6/uL (4.35-5.55); RED CELL DISTRIBUTION WIDTH 17.3 % (11.5-14.0); WHITE BLOOD COUNT 12.9 10^3/uL (4.0-10.5)
[2017-03-05] MEDS ORDERED: MIDAZOLAM 2 MG/2 ML INJ ONE (12:58)
[2017-03-05] MEDS ORDERED: FENTANYL CITRATE INJ/PF 100 MCG/2 ML AMPUL ONE (12:59)
[2017-03-05 13:00] LABS: MEAN CORPUSCULAR VOLUME 120 fl (80-97)
--- NOTE | 2017-03-05 13:11 | PDOC PROGRESS REPORT ---
Subjective Progress Note for:: 03/05/17 Subjective:: Is a follow-up visit for acute respiratory failure with hypoxemia. Seen earlier this morning. States he feels better overall. Denies any chest pain or worsening shortness of breath. He slept comfortably on the nonrebreather mask. Physical Exam Vital Signs: Temp Pulse Resp BP Pulse Ox 98.1 F 88 21 H 121/67 97 03/05/17 10:43 03/05/17 10:43 03/05/17 10:43 03/05/17 12:31 03/05/17 12:31 Intake & Output 03/04/17 03/05/17 03/06/17 06:59 06:59 06:59 Intake Total 653 923 316 Output Total 2300 1625 400 Balance -1647 -702 -84 Weight 90.9 kg 93.8 kg Physical exam: General: This is a well-developed well-nourished appearing white male resting in bed currently in no acute distress Heart: Regular rate and rhythm no murmurs rubs or gallops. Lungs: Diminished at the bases bilaterally with equal rise and fall of the chest. He is currently on a nonrebreather mask. He is satting at 96%. Abdomen: Distended Extremities: Anasarca is present. pulses are 1+ Neuro: Awake alert oriented 3. Cranial nerves are grossly intact Results Laboratory Results: 03/05/17 11:17 03/05/17 04:26 03/01/17 03/04/17 03/05/17 14:49 15:13 00:38 WBC RBC Hgb Hct MCV MCH MCHC RDW Plt Count Seg Neutrophils % Lymphocytes % Monocytes % Eosinophils % Basophils % Absolute Neutrophils Absolute Lymphocytes Absolute Monocytes Absolute Eosinophils Absolute Basophils Carbonic Acid 0.89 L HCO3/H2CO3 Ratio 27:1 ABG pH 7.53 H ABG pCO2 29.6 L ABG pO2 51.0 L ABG HCO3 24.2 ABG O2 Saturation 90.4 L ABG Base Excess 2.4 FiO2 50% Sodium Potassium Chloride Carbon Dioxide Anion Gap BUN Creatinine Est GFR ( Amer) Est GFR (Non-Af Amer) Glucose Calcium Magnesium Blood Type AB POSITIVE AB POSITIVE 03/05/17 03/05/17 03/05/17 04:26 04:26 09:40 WBC 12.3 H RBC 2.87 L Hgb 11.7 L Hct 34.8 L MCV 121 H MCH 40.8 H MCHC 33.6 RDW 17.4 H Plt Count 47 L Seg Neutrophils % 84.0 H Lymphocytes % 7.5 L Monocytes % 6.3 Eosinophils % 1.4 Basophils % 0.8 Absolute Neutrophils 10.4 H Absolute Lymphocytes 0.9 Absolute Monocytes 0.8 Absolute Eosinophils 0.2 Absolute Basophils 0.1 Carbonic Acid 1.15 HCO3/H2CO3 Ratio 22:1 ABG pH 7.45 ABG pCO2 38.3 ABG pO2 37.1 L* ABG HCO3 25.7 ABG O2 Saturation 73.4 L ABG Base Excess 1.7 FiO2 10L Sodium 135.1 L Potassium 3.3 L Chloride 105 Carbon Dioxide 23 Anion Gap 7 BUN 16 Creatinine 0.62 Est GFR ( Amer) > 60 Est GFR (Non-Af Amer) > 60 Glucose 156 H Calcium 7.8 L Magnesium 1.7 Blood Type 03/05/17 11:17 WBC 12.9 H RBC 2.56 L Hgb 10.4 L Hct 30.7 L MCV 120 H MCH 40.7 H MCHC 34.0 RDW 17.3 H Plt Count 57 L Seg Neutrophils % Lymphocytes % Monocytes % Eosinophils % Basophils % Absolute Neutrophils Absolute Lymphocytes Absolute Monocytes Absolute Eosinophils Absolute Basophils Carbonic Acid HCO3/H2CO3 Ratio ABG pH ABG pCO2 ABG pO2 ABG HCO3 ABG O2 Saturation ABG Base Excess FiO2 Sodium Potassium Chloride Carbon Dioxide Anion Gap BUN Creatinine Est GFR ( Amer) Est GFR (Non-Af Amer) Glucose Calcium Magnesium Blood Type 03/01/17 09:23 Ascities Fluid Gram Stain - Final 03/01/17 09:23 Ascities Fluid Body Fluid Culture - Final NO AEROBIC OR ANAEROBIC ORGANISMS RECOVERED Impressions: Chest X-Ray 02/28/17 18:54 IMPRESSION: Abnormal opacities in the lungs bilaterally, acuity indeterminate. See above. Abdomen/Pelvis CT 03/01/17 00:00 IMPRESSION: Metastatic disease pattern consistent with CT from of the chest, 1 day prior. There are innumerable pulmonary nodules of the lung bases, retroperitoneal lymphadenopathy, indeterminate liver lesions, and moderate ascites. Venous Doppler Study 03/01/17 00:00 IMPRESSION: NO EVIDENCE DVT OR SVT IN EITHER LEG. Body Scan Nuclear Medicine 03/02/17 00:00 IMPRESSION: No areas of increased uptake worrisome for bony metastatic disease Paracentesis Ultrasound 03/02/17 00:00 IMPRESSION: Ultrasound-guided therapeutic and diagnostic paracentesis Chest/Abdomen CTA 03/04/17 00:00 IMPRESSION: 1. NORMAL CTA OF THE CHEST. NO PULMONARY EMBOLI. 2. STABLE FINDINGS RELATED TO MALIGNANCY AND METASTATIC INVOLVEMENT WITH NUMEROUS PULMONARY NODULES, MEDIASTINAL AND HILAR ADENOPATHY, LIVER LESIONS, AND ASCITES. SMALL PLEURAL EFFUSIONS. Assessment & Plan - Diagnosis (1) Acute hypoxemic respiratory failure Is this a current diagnosis for this admission?: YesPlan: Continue oxygen for now. Patient is doing much better. Respiratory failure is possibly due to underlying cancer. Unfortunately, we were not able to get any cells from the paracentesis. Liver biopsy is due today. (2) Cirrhosis of liver Qualifiers: Hepatic cirrhosis type: alcoholic cirrhosis Is this a current diagnosis for this admission?: YesPlan: Continue diuresis for anasarca (3) Pulmonary metastases Qualifiers: Laterality: unspecified laterality Qualified Code(s): C78.00 - Secondary malignant neoplasm of unspecified lung Is this a current diagnosis for this admission?: YesPlan: Oncology services are following. Cytology for paracentesis was negative. Patient will go for liver biopsy. He is currently receiving platelets and FFP prior to the procedure. (4) Thrombocytopenia Is this a current diagnosis for this admission?: YesPlan: Status post platelet transfusion. Platelets are trending down again. Platelets and FFP are currently being given. (5) Right heart failure Is this a current diagnosis for this admission?: YesPlan: Improved. Continue diuresis (6) Sepsis Qualifiers: Sepsis type: sepsis due to unspecified organism Qualified Code(s): A41.9 - Sepsis, unspecified organism Is this a current diagnosis for this admission?: YesPlan: Resolved. (7) Atrial fibrillation with RVR Plan: Plan drip has been able to be weaned down. Will change to p.o. after procedure. - Time Time Spent with patient: 25-34 minutes - Inpatient Certification Medical Necessity: Need Close Monitoring Due to Risk of Patient Decompensation
[2017-03-05 13:12] LABS: ARTERIAL BLOOD O2 SATURATION 96.7 % (94-98)
--- NOTE | 2017-03-05 15:17 | RADIOLOGY REPORT (SQ) ---
EXAM DESCRIPTION: U/S ABD PARACENTESIS COMPLETED DATE/TIME: 03/05/2017 2:06 pm REASON FOR STUDY: if needed prior to liver bx COMPARISON: None. RADIATION DOSE: Not available LIMITATIONS: None. PROCEDURE: Procedure, risks, benefit, and alternative explained to patient who then gave written con sent. The right abdominal wall marked using CT guidance. A time-out was called for correct marking verification. Abdomen prepped and draped using sterile technique. Local anesthesia achieved using 5 ml of 1% lidocaine injection. A paracentesis catheter was introduced into the peritoneal cavity. Fl uid was drained. The catheter was removed and entry site was covered with sterile bandage. No imme diate complications noted. Images acquired during the procedure were stored on PACS. FINDINGS: ENTRY SITE: Right lateral abdomen FLUID VOLUME: 1100 mL FLUID ANALYSIS: Straw-colored OTHER: No other significant finding IMPRESSION: SUCCESSFUL CT GUIDED PARACENTESIS. COMMENT: Patient medication list reviewed:Yes TECHNICAL DOCUMENTATION: JOB ID: [id number] [employer]- All Rights Reserved
--- NOTE | 2017-03-05 15:20 | RADIOLOGY REPORT (SQ) ---
EXAM DESCRIPTION: CT NEEDLE PLACEMENT COMPLETE DATE/TIME: 03/05/2017 3:08 pm REASON FOR STUDY: LIVER LESIONS SUSPICIOUS FOR METS FINDINGS: Please see combined report for performance of procedure and radiologic supervision and int erpretation. IMPRESSION: Please see combined report for performance of procedure and radiologic supervision and i nterpretation.
--- NOTE | 2017-03-05 15:20 | RADIOLOGY REPORT (SQ) ---
EXAM DESCRIPTION: CT BIOPSY LIVER COMPLETED DATE/TIME: 03/05/2017 3:08 pm REASON FOR STUDY: LIVER LESIONS SUSPICIOUS FOR METS COMPARISON: None. TECHNIQUE: After obtaining informed consent, the patient was brought to the CT suite and was placed supine on the CT gurney. The patient was prepped and draped in the usual sterile fashion . Axial liam ges were obtained for targeting of thehepatic mass lesion. An appropriate access site was selected. I V sedation was administered and physician direction by the registered nurse using 1 milligrams of Janis sed and 50 micrograms of fentanyl. Physiologic monitoring was provided before, during, and after soco tion. The total sedation time was 30 minutes. Documentation face to face time, the performing proceduralist, spent monitoring the patient: 20minute s. Noncontrasted CT of the liver was performed to localize an approach for the directed liver biopsy. A percutaneous site was marked. Time out was performed. After skin prep and local lidocaine for skin and deep tissue anesthesia, a coaxial biopsy needle sys tem was used to obtain several cores of tissue from the right lobe of the liver. These were submitte d to the lab in formalin. Biopsy tract was embolized with a Gelfoam plug. No immediate postprocedur e complications. Total of 5.[address] fluoro was used. All CT scanners at this facility use dose modulation, iterative reconstruction, and/or weight based d osing when appropriate to reduce radiation dose to as low as reasonably achievable (ALARA). [facility]: Dose Right [facility]: CareDose [facility]: Dose Right [facility]: Teradose 4D [facility]: RegBinder RADIATION DOSE: 140.71 mGy. LIMITATIONS: None. FINDINGS: CT guided liver biopsy as detailed above. IMPRESSION: CT GUIDED directed LIVER BIOPSY PERFORMED ABOVE. PATHOLOGY PENDING. NO IMMEDIATE C OMPLICATIONS. COMMENT: Patient medication list reviewed:Yes. Quality ID [id number]: Final reports for procedures using fluoroscopy that document radiation exposure shani jay, or exposure time and number of fluorographic images (if radiation exposure indices are not avail able) TECHNICAL DOCUMENTATION: JOB ID: [id number] Quality ID # [id number]: Final reports with documentation of one or more dose reduction techniques (e.g., A utomated exposure control, adjustment of the mA and/or kV according to patient size, use of iterative reconstruction technique) 2010 [employer]- All Rights Reserved
[2017-03-05] MEDS: CEFTRIAXONE 1 GM/D5W RTU 1 GM/50 ML RTUPB IV SCH (15:37)
[2017-03-05] MEDS: AZITHROMYCIN 250 MG TABLET PO SCH (18:40)
[2017-03-05] MEDS: DILTIAZEM HCL 60 MG TABLET PO SCH (21:19)
[2017-03-06] MEDS: DILTIAZEM HCL 60 MG TABLET PO SCH ×3 (05:18→21:23)
[2017-03-06] MEDS: OXYCODONE-ACETAMINOPHEN 5-325 MG TABLET PO PRN ×2 (08:36→19:52)
[2017-03-06 09:20] LABS: ABSOLUTE BASOPHILS # (AUTO) 0.1 10^3/uL (0.0-0.2); ABSOLUTE EOSINOPHILS # (AUTO) 0.1 10^3/uL (0.0-0.6); ABSOLUTE LYMPHOCYTES (AUTO) 0.8 10^3/uL (0.5-4.7); ABSOLUTE MONOCYTES (AUTO) 0.8 10^3/uL (0.1-1.4); ABSOLUTE NEUT (AUTO) 8.1 10^3/uL (1.7-8.2); BASOPHILS % (AUTO) 0.6 % (0-2); EOSINOPHILS % (AUTO) 1.5 % (0-6); HEMOGLOBIN 10.5 g/dL (13.5-17.0); HGB HCT DIFFERENCE 0.5; LYMPHOCYTES % (AUTO) 8.5 % (13-45); MEAN CORPUSCULAR HEMOGLOBIN 41.1 pg (27.0-33.4); MEAN CORPUSCULAR HGB CONC 33.8 g/dL (32.0-36.0); MEAN CORPUSCULAR VOLUME 122 fl (80-97); MONOCYTES % (AUTO) 7.6 % (3-13); RED BLOOD COUNT 2.55 10^6/uL (4.35-5.55); RED CELL DISTRIBUTION WIDTH 16.7 % (11.5-14.0); SEGMENTED NEUTROPHILS % (AUTO) 81.8 % (42-78)
[2017-03-06 09:34] LABS: ANION GAP 9 (5-19); BLOOD UREA NITROGEN 23 mg/dL (7-20); CARBON DIOXIDE 22 mmol/L (22-30); CHLORIDE 104 mmol/L (98-107); CREATININE RESULT 0.76 mg/dL (0.52-1.25); GLUCOSE 176 mg/dL (75-110); MAGNESIUM 1.8 mg/dL (1.6-2.3); POTASSIUM 3.7 mmol/L (3.6-5.0); SODIUM 135.3 mmol/L (137-145)
[2017-03-06 09:47] LABS: ANISOCYTOSIS 1+; HELMET CELLS SLIGHT; POIKILOCYTOSIS SLIGHT; TEAR DROP CELLS SLIGHT
[2017-03-06] MEDS: MULTIVITAMIN TABLET PO SCH (09:59)
[2017-03-06] MEDS: FUROSEMIDE 40 MG TABLET PO SCH ×2 (09:59→18:57)
[2017-03-06] MEDS: FOLIC ACID 1 MG TABLET PO SCH (09:59)
[2017-03-06] MEDS: POTASSIUM CHLORIDE 10 MEQ TABLET.SA PO SCH (09:59)
[2017-03-06] MEDS: THIAMINE HCL 100 MG TABLET PO SCH (09:59)
[2017-03-06 12:37] LABS: HEPATITIS C GENOTYPE 3 1a (.)
--- NOTE | 2017-03-06 13:50 | PDOC PROGRESS REPORT ---
Subjective Progress Note for:: 03/06/17 Subjective:: Is a follow-up visit for acute respiratory failure with hypoxemia. Seen earlier this morning. States he feels better overall. Denies any chest pain or worsening shortness of breath. He does not have his oxygen on currently. He is unaware if this. Physical Exam Vital Signs: Temp Pulse Resp BP Pulse Ox 97.7 F 74 18 120/50 L 91 L 03/06/17 11:44 03/06/17 11:44 03/06/17 11:44 03/06/17 13:42 03/06/17 11:44 Intake & Output 03/05/17 03/06/17 03/07/17 06:59 06:59 06:59 Intake Total 923 695 655 Output Total 1625 1325 250 Balance -702 -630 405 Weight 93.8 kg 92 kg Physical exam: General: This is a well-developed well-nourished appearing white male resting in bed currently in no acute distress Heart: Regular rate and rhythm no murmurs rubs or gallops. Lungs: Diminished at the bases bilaterally with equal rise and fall of the chest. He is currently on a cannula.. Abdomen: less Distended after paracentesis. Extremities: Edema is improved overall. His looser on his legs. Pulses are 1+ Neuro: Awake alert oriented 3. Cranial nerves are grossly intact Results Laboratory Results: 03/06/17 08:56 03/06/17 08:56 03/06/17 03/06/17 08:56 08:56 WBC 10.0 RBC 2.55 L Hgb 10.5 L Hct 31.0 L MCV 122 H MCH 41.1 H MCHC 33.8 RDW 16.7 H Plt Count 54 L Seg Neutrophils % 81.8 H Lymphocytes % 8.5 L Monocytes % 7.6 Eosinophils % 1.5 Basophils % 0.6 Absolute Neutrophils 8.1 Absolute Lymphocytes 0.8 Absolute Monocytes 0.8 Absolute Eosinophils 0.1 Absolute Basophils 0.1 Sodium 135.3 L Potassium 3.7 Chloride 104 Carbon Dioxide 22 Anion Gap 9 BUN 23 H Creatinine 0.76 Est GFR ( Amer) > 60 Est GFR (Non-Af Amer) > 60 Glucose 176 H Calcium 8.0 L Magnesium 1.8 Impressions: Chest X-Ray 02/28/17 18:54 IMPRESSION: Abnormal opacities in the lungs bilaterally, acuity indeterminate. See above. Abdomen/Pelvis CT 03/01/17 00:00 IMPRESSION: Metastatic disease pattern consistent with CT from of the chest, 1 day prior. There are innumerable pulmonary nodules of the lung bases, retroperitoneal lymphadenopathy, indeterminate liver lesions, and moderate ascites. Venous Doppler Study 03/01/17 00:00 IMPRESSION: NO EVIDENCE DVT OR SVT IN EITHER LEG. Body Scan Nuclear Medicine 03/02/17 00:00 IMPRESSION: No areas of increased uptake worrisome for bony metastatic disease Chest/Abdomen CTA 03/04/17 00:00 IMPRESSION: 1. NORMAL CTA OF THE CHEST. NO PULMONARY EMBOLI. 2. STABLE FINDINGS RELATED TO MALIGNANCY AND METASTATIC INVOLVEMENT WITH NUMEROUS PULMONARY NODULES, MEDIASTINAL AND HILAR ADENOPATHY, LIVER LESIONS, AND ASCITES. SMALL PLEURAL EFFUSIONS. Guidance Needle Placement CT 03/05/17 00:00 IMPRESSION: Please see combined report for performance of procedure and radiologic supervision and interpretation. Paracentesis Ultrasound 03/05/17 00:00 IMPRESSION: SUCCESSFUL CT GUIDED PARACENTESIS. Liver Biopsy CT 03/05/17 07:00 IMPRESSION: CT GUIDED directed LIVER BIOPSY PERFORMED ABOVE. PATHOLOGY PENDING. NO IMMEDIATE COMPLICATIONS. Assessment & Plan - Diagnosis (1) Acute hypoxemic respiratory failure Is this a current diagnosis for this admission?: YesPlan: Continue oxygen for now. Patient is doing much better. Respiratory failure is possibly due to underlying cancer. Unfortunately, we were not able to get any cells from the paracentesis. Status post liver biopsy 03/05/2017. Continue nasal cannula. Keep oxygen at a goal of greater than 88% (2) Cirrhosis of liver Qualifiers: Hepatic cirrhosis type: alcoholic cirrhosis Is this a current diagnosis for this admission?: YesPlan: Continue diuresis for anasarca (3) Pulmonary metastases Qualifiers: Laterality: unspecified laterality Qualified Code(s): C78.00 - Secondary malignant neoplasm of unspecified lung Is this a current diagnosis for this admission?: YesPlan: Oncology services are following. Cytology for paracentesis was negative. Status post liver biopsy. Await pathology results (4) Thrombocytopenia Is this a current diagnosis for this admission?: YesPlan: Status post platelet transfusion x2. Stable. Will continue to monitor. (5) Right heart failure Is this a current diagnosis for this admission?: YesPlan: Improved. Continue diuresis (6) Sepsis Qualifiers: Sepsis type: sepsis due to unspecified organism Qualified Code(s): A41.9 - Sepsis, unspecified organism Is this a current diagnosis for this admission?: YesPlan: Resolved. (7) Atrial fibrillation with RVR Plan: Continue p.o. Cardizem. (8) Full code status Is this a current diagnosis for this admission?: YesPlan: The patient's CODE STATUS is reviewed with him. I reviewed his current diagnoses and prognoses with respect to his respiratory status. The patient wishes to continue to remain full code - Time Time Spent with patient: 25-34 minutes - Inpatient Certification Medical Necessity: Need Close Monitoring Due to Risk of Patient Decompensation
[2017-03-06] MEDS: CEFTRIAXONE 1 GM/D5W RTU 1 GM/50 ML RTUPB IV SCH (14:06)
[2017-03-06 15:27] LABS: BLOOD UREA NITROGEN 25 mg/dL (7-20); CHLORIDE 101 mmol/L (98-107); CREATININE RESULT 0.75 mg/dL (0.52-1.25); GLUCOSE 260 mg/dL (75-110); POTASSIUM 3.6 mmol/L (3.6-5.0)
[2017-03-06 15:31] LABS: ABSOLUTE EOSINOPHILS # (AUTO) 0.2 10^3/uL (0.0-0.6); ABSOLUTE LYMPHOCYTES (AUTO) 0.8 10^3/uL (0.5-4.7); ABSOLUTE MONOCYTES (AUTO) 0.7 10^3/uL (0.1-1.4); ABSOLUTE NEUT (AUTO) 7.7 10^3/uL (1.7-8.2); BASOPHILS % (AUTO) 0.5 % (0-2); EOSINOPHILS % (AUTO) 1.7 % (0-6); HEMATOCRIT 29.9 % (37.9-51.0); HEMOGLOBIN 10.2 g/dL (13.5-17.0); HGB HCT DIFFERENCE 0.7; LYMPHOCYTES % (AUTO) 8.6 % (13-45); MEAN CORPUSCULAR HEMOGLOBIN 41.5 pg (27.0-33.4); MEAN CORPUSCULAR HGB CONC 34.1 g/dL (32.0-36.0); MEAN CORPUSCULAR VOLUME 122 fl (80-97); MONOCYTES % (AUTO) 7.4 % (3-13); RED BLOOD COUNT 2.46 10^6/uL (4.35-5.55); RED CELL DISTRIBUTION WIDTH 16.6 % (11.5-14.0); SEGMENTED NEUTROPHILS % (AUTO) 81.8 % (42-78); WHITE BLOOD COUNT 9.4 10^3/uL (4.0-10.5)
[2017-03-06 15:35] LABS: ANISOCYTOSIS 1+; POIKILOCYTOSIS SLIGHT
[2017-03-06 15:36] LABS: HELMET CELLS SLIGHT
[2017-03-06 15:37] LABS: CARBON DIOXIDE 23 mmol/L (22-30); SODIUM 133.5 mmol/L (137-145)
[2017-03-06 15:41] LABS: ANION GAP 10 (5-19)
[2017-03-06 17:12] LABS: APPEARANCE,URINE SLIGHTLY-CLOUDY; BILIRUBIN,URINE MODERATE (NEGATIVE); GLUCOSE, URINE NEGATIVE (NEGATIVE); KETONES,URINE NEGATIVE (NEGATIVE); LEUKOCYTE ESTERASE,URINE NEGATIVE (NEGATIVE); NITRITE,URINE NEGATIVE (NEGATIVE); PROTEIN,URINE NEGATIVE (NEGATIVE); URINE SPECIFIC GRAVITY 1.017
[2017-03-06] MEDS: AZITHROMYCIN 250 MG TABLET PO SCH (18:57)
[2017-03-07] MEDS: OXYCODONE-ACETAMINOPHEN 5-325 MG TABLET PO PRN ×3 (02:35→21:12)
[2017-03-07] MEDS: DILTIAZEM HCL 60 MG TABLET PO SCH ×3 (05:44→21:10)
[2017-03-07] MEDS: FOLIC ACID 1 MG TABLET PO SCH (10:28)
[2017-03-07] MEDS: MULTIVITAMIN TABLET PO SCH (10:28)
[2017-03-07] MEDS: POTASSIUM CHLORIDE 10 MEQ TABLET.SA PO SCH (10:28)
[2017-03-07] MEDS: FUROSEMIDE 40 MG TABLET PO SCH ×2 (10:28→18:28)
[2017-03-07] MEDS: THIAMINE HCL 100 MG TABLET PO SCH (10:29)
--- NOTE | 2017-03-07 12:50 | PDOC PROGRESS REPORT ---
Subjective Subjective:: Is a follow-up visit for acute respiratory failure with hypoxemia. States he feels better overall. Denies any chest pain or worsening shortness of breath. The patient discussed CODE STATUS with me again today and he wanted to let me know that he still want resuscitation but if things look as though not going to get any better he will choose quality of life over resuscitation. He tells me that all of his children will work together to carry out his wishes and that he has made them aware of what they are. He has elected his son David Adamson to be the official POA, however. Physical Exam Vital Signs: Temp Pulse Resp BP Pulse Ox 97.8 F 85 22 H 122/66 91 L 03/07/17 08:10 03/07/17 08:10 03/07/17 08:10 03/07/17 08:10 03/07/17 08:10 Intake & Output 03/06/17 03/07/17 03/08/17 06:59 06:59 06:59 Intake Total 695 1715 300 Output Total 1325 925 325 Balance -630 790 -25 Weight 92 kg 94.9 kg Physical exam: General: This is a well-developed well-nourished appearing white male resting in bed currently in no acute distress Heart: Regular rate and rhythm no murmurs rubs or gallops. Lungs: Diminished at the bases bilaterally with rare crackle and with equal rise and fall of the chest. He is currently on a cannula at 4 Abdomen: less Distended after paracentesis. Site oozing Extremities: Edema is worse today with 2 pitting edema. Skin is tighter on legs. Pulses are 1+ Neuro: Awake alert oriented 3. Cranial nerves are grossly intact Results Laboratory Results: 03/06/17 14:55 03/06/17 14:55 03/06/17 03/06/17 03/06/17 08:56 08:56 14:10 WBC 10.0 RBC 2.55 L Hgb 10.5 L Hct 31.0 L MCV 122 H MCH 41.1 H MCHC 33.8 RDW 16.7 H Plt Count 54 L Seg Neutrophils % 81.8 H Lymphocytes % 8.5 L Monocytes % 7.6 Eosinophils % 1.5 Basophils % 0.6 Absolute Neutrophils 8.1 Absolute Lymphocytes 0.8 Absolute Monocytes 0.8 Absolute Eosinophils 0.1 Absolute Basophils 0.1 Sodium 135.3 L Potassium 3.7 Chloride 104 Carbon Dioxide 22 Anion Gap 9 BUN 23 H Creatinine 0.76 Est GFR ( Amer) > 60 Est GFR (Non-Af Amer) > 60 Glucose 176 H Calcium 8.0 L Magnesium 1.8 Urine Color SHAY Urine Appearance SLIGHTLY-CLOUDY Urine pH 5.0 Ur Specific [place] 1.017 Urine Protein NEGATIVE Urine Glucose (UA) NEGATIVE Urine Ketones NEGATIVE Urine Blood NEGATIVE Urine Nitrite NEGATIVE Ur Leukocyte Esterase NEGATIVE Urine WBC (Auto) 1 Urine RBC (Auto) 0 03/06/17 03/06/17 14:55 14:55 WBC 9.4 RBC 2.46 L Hgb 10.2 L Hct 29.9 L MCV 122 H MCH 41.5 H MCHC 34.1 RDW 16.6 H Plt Count 44 L Seg Neutrophils % 81.8 H Lymphocytes % 8.6 L Monocytes % 7.4 Eosinophils % 1.7 Basophils % 0.5 Absolute Neutrophils 7.7 Absolute Lymphocytes 0.8 Absolute Monocytes 0.7 Absolute Eosinophils 0.2 Absolute Basophils 0.0 Sodium 133.5 L Potassium 3.6 Chloride 101 Carbon Dioxide 23 Anion Gap 10 BUN 25 H Creatinine 0.75 Est GFR ( Amer) > 60 Est GFR (Non-Af Amer) > 60 Glucose 260 H Calcium 8.0 L Magnesium 2.0 Urine Color Urine Appearance Urine pH Ur Specific [place] Urine Protein Urine Glucose (UA) Urine Ketones Urine Blood Urine Nitrite Ur Leukocyte Esterase Urine WBC (Auto) Urine RBC (Auto) Impressions: Chest X-Ray 02/28/17 18:54 IMPRESSION: Abnormal opacities in the lungs bilaterally, acuity indeterminate. See above. Abdomen/Pelvis CT 03/01/17 00:00 IMPRESSION: Metastatic disease pattern consistent with CT from of the chest, 1 day prior. There are innumerable pulmonary nodules of the lung bases, retroperitoneal lymphadenopathy, indeterminate liver lesions, and moderate ascites. Venous Doppler Study 03/01/17 00:00 IMPRESSION: NO EVIDENCE DVT OR SVT IN EITHER LEG. Body Scan Nuclear Medicine 03/02/17 00:00 IMPRESSION: No areas of increased uptake worrisome for bony metastatic disease Chest/Abdomen CTA 03/04/17 00:00 IMPRESSION: 1. NORMAL CTA OF THE CHEST. NO PULMONARY EMBOLI. 2. STABLE FINDINGS RELATED TO MALIGNANCY AND METASTATIC INVOLVEMENT WITH NUMEROUS PULMONARY NODULES, MEDIASTINAL AND HILAR ADENOPATHY, LIVER LESIONS, AND ASCITES. SMALL PLEURAL EFFUSIONS. Guidance Needle Placement CT 03/05/17 00:00 IMPRESSION: Please see combined report for performance of procedure and radiologic supervision and interpretation. Paracentesis Ultrasound 03/05/17 00:00 IMPRESSION: SUCCESSFUL CT GUIDED PARACENTESIS. Liver Biopsy CT 03/05/17 07:00 IMPRESSION: CT GUIDED directed LIVER BIOPSY PERFORMED ABOVE. PATHOLOGY PENDING. NO IMMEDIATE COMPLICATIONS. Assessment & Plan - Diagnosis (1) Acute hypoxemic respiratory failure Is this a current diagnosis for this admission?: YesPlan: Continue oxygen for now. Patient is doing much better. Respiratory failure is possibly due to underlying cancer. Unfortunately, we were not able to get any cells from the paracentesis. Status post liver biopsy 03/05/2017. Continue nasal cannula. Keep oxygen at a goal of greater than 88% (2) Cirrhosis of liver Qualifiers: Hepatic cirrhosis type: alcoholic cirrhosis Is this a current diagnosis for this admission?: YesPlan: Continue diuresis for anasarca. I do have concern that some of his ascites is due to metastases from a primary source (3) Pulmonary metastases Qualifiers: Laterality: unspecified laterality Qualified Code(s): C78.00 - Secondary malignant neoplasm of unspecified lung Is this a current diagnosis for this admission?: YesPlan: Oncology services are following. Cytology for paracentesis was negative. Status post liver biopsy. Await pathology results (4) Thrombocytopenia Is this a current diagnosis for this admission?: YesPlan: Status post platelet transfusion x2. Stable. Will continue to monitor. (5) Right heart failure Is this a current diagnosis for this admission?: YesPlan: Improved. Continue diuresis. I will give an extra dose today (6) Sepsis Qualifiers: Sepsis type: sepsis due to unspecified organism Qualified Code(s): A41.9 - Sepsis, unspecified organism Is this a current diagnosis for this admission?: YesPlan: Resolved. (7) Atrial fibrillation with RVR Plan: Continue p.o. Cardizem. Tolerating this well. We will prescribe once a day dosing at this point (8) Full code status Is this a current diagnosis for this admission?: YesPlan: The patient's CODE STATUS is reviewed with him. I reviewed his current diagnoses and prognoses with respect to his respiratory status. The patient wishes to continue to remain full code - Time Time Spent with patient: 25-34 minutes - Inpatient Certification Medical Necessity: Need Close Monitoring Due to Risk of Patient Decompensation
[2017-03-07] MEDS ORDERED: FUROSEMIDE INJ/PF 20 MG/2 ML SDV IV ONE (12:51)
[2017-03-07] MEDS ORDERED: FUROSEMIDE INJ/PF 40 MG/4 ML SDV IV ONE (13:15)
[2017-03-07] MEDS: CEFTRIAXONE 1 GM/D5W RTU 1 GM/50 ML RTUPB IV SCH (14:15)
[2017-03-07 16:00] LABS: ABSOLUTE BASOPHILS # (AUTO) 0.1 10^3/uL (0.0-0.2); ABSOLUTE EOSINOPHILS # (AUTO) 0.2 10^3/uL (0.0-0.6); ABSOLUTE LYMPHOCYTES (AUTO) 1.1 10^3/uL (0.5-4.7); ABSOLUTE MONOCYTES (AUTO) 0.9 10^3/uL (0.1-1.4); ABSOLUTE NEUT (AUTO) 7.6 10^3/uL (1.7-8.2); BASOPHILS % (AUTO) 0.7 % (0-2); EOSINOPHILS % (AUTO) 1.6 % (0-6); HEMOGLOBIN 10.3 g/dL (13.5-17.0); HGB HCT DIFFERENCE 0.9; MEAN CORPUSCULAR HEMOGLOBIN 41.5 pg (27.0-33.4); MEAN CORPUSCULAR HGB CONC 34.3 g/dL (32.0-36.0); MEAN CORPUSCULAR VOLUME 121 fl (80-97); MONOCYTES % (AUTO) 9.1 % (3-13); RED BLOOD COUNT 2.49 10^6/uL (4.35-5.55); RED CELL DISTRIBUTION WIDTH 16.3 % (11.5-14.0); SEGMENTED NEUTROPHILS % (AUTO) 77.6 % (42-78); WHITE BLOOD COUNT 9.8 10^3/uL (4.0-10.5)
[2017-03-07 16:03] LABS: ANION GAP 8 (5-19); BLOOD UREA NITROGEN 25 mg/dL (7-20); CALCIUM 8.1 mg/dL (8.4-10.2); CARBON DIOXIDE 25 mmol/L (22-30); CHLORIDE 100 mmol/L (98-107); CREATININE RESULT 0.85 mg/dL (0.52-1.25); GLUCOSE 183 mg/dL (75-110); MAGNESIUM 1.8 mg/dL (1.6-2.3); POTASSIUM 3.7 mmol/L (3.6-5.0); SODIUM 133.4 mmol/L (137-145)
[2017-03-07 16:19] LABS: ANISOCYTOSIS 1+; POIKILOCYTOSIS SLIGHT; TEAR DROP CELLS SLIGHT
[2017-03-07] MEDS: AZITHROMYCIN 250 MG TABLET PO SCH (18:28)
--- NOTE | 2017-03-07 20:09 | CONSULTATION REPORT E ---
Consultation Report NAME: YEIMI SCHILLING : 1955 AGE: 61Y DATE: 03/07/2017 320 A TO: SILVESTRE BARRY M.D. FROM: YARELY LANDON M.D. Requesting Physician REASON FOR CONSULTATION: Patient is leaking from a paracentesis site on the right upper quadrant area. HISTORY OF PRESENT ILLNESS: This is a 61-year-old male with untreated hepatitis C and ongoing alcohol use had severe ascites. He had an ultrasound-guided paracentesis on March 02 where 2700 mL of clear fluid was removed. Again, he had another paracentesis done on 03/05, close to the site that was aspirated, and this time obtained 1100 mL. On 03/05 also there was liver biopsy. His coagulation is PT of 18.7 seconds, INR of 1.47, APTT of 38.8, platelets of 49,000 and hemoglobin of 10.3 done on 03/05/2017. The nurse called me yesterday because he is leaking from one of the paracentesis sites. I advised them to put a urostomy bag. Again today, the patient is leaking on the other side, and the patient was seen and another urostomy bag was placed. PHYSICAL EXAMINATION: His abdomen is soft and nontender and appears to be relatively flat. IMPRESSION: Liver cirrhosis with ascites post paracentesis x2 and liver biopsy with slightly abnormal coagulation. RECOMMENDATIONS: I would watch the drainage and if needed may need to give fresh-frozen plasma to correct the coagulation to form clots to close the paracentesis sites. We will re-evaluate the patient in the next few days. DICTATING PHYSICIAN: SILVESTRE BARRY M.D. [id number] PHY#: [id number] ID: [id number] JOB#: [id number] ACCT: [id number] cc:SILVESTRE BARRY M.D. >
[2017-03-08] MEDS: OXYCODONE-ACETAMINOPHEN 5-325 MG TABLET PO PRN ×4 (03:22→18:46)
[2017-03-08] MEDS: DILTIAZEM HCL 60 MG TABLET PO SCH ×3 (05:16→21:07)
[2017-03-08] MEDS ORDERED: LIDOCAINE 0.5% INJ-PF (5 MG/ML) 50 ML SDV ONE (08:02)
[2017-03-08] MEDS: IPRATROPIUM/ALBUTEROL 0.5-2.5 MG/3 ML AMPUL NEB PRN (09:18)
[2017-03-08] MEDS: THIAMINE HCL 100 MG TABLET PO SCH (09:34)
[2017-03-08] MEDS: FOLIC ACID 1 MG TABLET PO SCH (09:34)
[2017-03-08] MEDS: POTASSIUM CHLORIDE 10 MEQ TABLET.SA PO SCH (09:34)
[2017-03-08] MEDS: MULTIVITAMIN TABLET PO SCH (09:34)
[2017-03-08] MEDS: FUROSEMIDE 40 MG TABLET PO SCH ×2 (09:34→17:48)
[2017-03-08] MEDS ORDERED: ACETAMINOPHEN 325 MG TABLET PO PRN (10:36)
[2017-03-08 15:09] LABS: PROTHROMBIN TIME 19.1 SEC (11.4-15.4)
[2017-03-08 15:18] LABS: PARTIAL THROMBOPLASTIN TIME 37.6 SEC (23.5-35.8)
--- NOTE | 2017-03-08 15:21 | PDOC PROGRESS REPORT ---
Subjective Progress Note for:: 03/08/17 Subjective:: Is a follow-up visit for acute respiratory failure with hypoxemia. Summary of events as per previous attending: Subjective Progress Note for:: 03/01/17 Subjective:: reason for visit: f/u hypoxic resp failure, pulm nodules, Hep C, ascites hospital course: per other's notes - "61-year-old male with known history of hepatitis C/cirrhosis, recently increasing abdominal girth, has visible jaundice , telangiectasias, he had CTA of the chest done because of increasing shortness of breath, this indicated diffuse bilateral pulmonary nodules the largest was 1.8 cm, mediastinal adenopathy that was bulky, retroperitoneal adenopathy also bulky. There is some hypodensities in the liver but it was not fully evaluated by the imaging. He denies weight loss but his major complaint has been increasing abdominal girth and shortness of breath. He does have history of heavy drinking in the past but denies heavy drinking over the last few years. He was told about hepatitis C about 2 years ago. Patient describes a 2 week history of progressive shortness of breath, in particular with much of any exertion. This is been particularly noticeable over the last 5 days. He is unable to walk over the last day or so simply because he is too short of breath. There has been no chest pain, fever or chills. Mild dry cough. Has chronic intermittent bilateral lower extremity edema, worse over the past 2 days. Underlying hypertension, but denies previous myocardial infarction, congestive heart failure, pulmonary embolus, or DVT. Was in significant respiratory distress upon presentation, necessitating application of BiPAP, which is since been changed to CPAP. Breathing a bit more comfortably now. Of note, patient is a rambling historian, and seems to have poor insight at best into acute and chronic medical issues. Denies any recent significant weight loss." I followed up with him this morning and he is still requiring BIPAP for more for increased WOB and breathlessness and less for hypoxia when off of it. he states he simply "cannot breathe without it right now" and has no prior hx of DAYRON or CPAP needs. he does have hx of COPD "but not yet full blown emphysema" and uses nebulizer machine at home but no home O2. ROS: c/o productive cough but no wheezing, weakness, myalgias and denies chest pain, palpitations, fevers/chills, night sweats, swollen glands, total 10 systems reviewed, remaining systems negative. TODAY During this last 7 days the patient has improved remarkably with his lower extremity swelling. Developed A. fib with RVR old initially with Cardizem drip. The patient is now on p.o. part Cardizem and doing well. He underwent paracentesis at 1100 mL of fluid taken off. The Cytology of the ascitic fluid was not helpful. He underwent biopsy of the liver and pathology is pending. Yesterday the patient developed oozing of his peritoneal site and a colostomy bag was placed over it. He also developed marked increased swelling in the lower extremities. He states he feels better overall. Denies any chest pain or worsening shortness of breath, but on exam and clinically he is worse. Overnight he has developed ecchymosis of the right flank. He is not receiving heparin products. He has discomfort of this area. Physical Exam Vital Signs: Temp Pulse Resp BP Pulse Ox 97.5 F 84 10 L 133/71 H 89 L 03/08/17 07:29 03/08/17 09:18 03/08/17 09:18 03/08/17 07:29 03/08/17 09:18 Intake & Output 03/07/17 03/08/17 03/09/17 06:59 06:59 06:59 Intake Total 1715 1087 Output Total 925 809 Balance 790 278 Weight 94.9 kg 95.7 kg Physical exam: General: This is a well-developed well-nourished appearing white male resting in bed currently in no acute distress Heart: Regular rate and rhythm no murmurs rubs or gallops. Lungs: Diminished at the bases bilaterally with rare crackle and with equal rise and fall of the chest. He is currently on a cannula at 4 Abdomen: less Distended after paracentesis. Site oozing Extremities: Edema is worse today with 2 pitting edema. Skin is tighter on legs. Pulses are 1+ Neuro: Awake alert oriented 3. Cranial nerves are grossly intact Skin: large ecchymosis of the right flank Results Laboratory Results: 03/07/17 15:24 03/07/17 15:24 03/07/17 03/07/17 15:24 15:24 WBC 9.8 RBC 2.49 L Hgb 10.3 L Hct 30.0 L MCV 121 H MCH 41.5 H MCHC 34.3 RDW 16.3 H Plt Count 49 L Seg Neutrophils % 77.6 Lymphocytes % 11.0 L Monocytes % 9.1 Eosinophils % 1.6 Basophils % 0.7 Absolute Neutrophils 7.6 Absolute Lymphocytes 1.1 Absolute Monocytes 0.9 Absolute Eosinophils 0.2 Absolute Basophils 0.1 Sodium 133.4 L Potassium 3.7 Chloride 100 Carbon Dioxide 25 Anion Gap 8 BUN 25 H Creatinine 0.85 Est GFR ( Amer) > 60 Est GFR (Non-Af Amer) > 60 Glucose 183 H Calcium 8.1 L Magnesium 1.8 Impressions: Chest X-Ray 02/28/17 18:54 IMPRESSION: Abnormal opacities in the lungs bilaterally, acuity indeterminate. See above. Abdomen/Pelvis CT 03/01/17 00:00 IMPRESSION: Metastatic disease pattern consistent with CT from of the chest, 1 day prior. There are innumerable pulmonary nodules of the lung bases, retroperitoneal lymphadenopathy, indeterminate liver lesions, and moderate ascites. Venous Doppler Study 03/01/17 00:00 IMPRESSION: NO EVIDENCE DVT OR SVT IN EITHER LEG. Body Scan Nuclear Medicine 03/02/17 00:00 IMPRESSION: No areas of increased uptake worrisome for bony metastatic disease Chest/Abdomen CTA 03/04/17 00:00 IMPRESSION: 1. NORMAL CTA OF THE CHEST. NO PULMONARY EMBOLI. 2. STABLE FINDINGS RELATED TO MALIGNANCY AND METASTATIC INVOLVEMENT WITH NUMEROUS PULMONARY NODULES, MEDIASTINAL AND HILAR ADENOPATHY, LIVER LESIONS, AND ASCITES. SMALL PLEURAL EFFUSIONS. Guidance Needle Placement CT 03/05/17 00:00 IMPRESSION: Please see combined report for performance of procedure and radiologic supervision and interpretation. Paracentesis Ultrasound 03/05/17 00:00 IMPRESSION: SUCCESSFUL CT GUIDED PARACENTESIS. Liver Biopsy CT 03/05/17 07:00 IMPRESSION: CT GUIDED directed LIVER BIOPSY PERFORMED ABOVE. PATHOLOGY PENDING. NO IMMEDIATE COMPLICATIONS. Assessment & Plan - Diagnosis (1) Acute hypoxemic respiratory failure Is this a current diagnosis for this admission?: YesPlan: Continue oxygen for now. Patient slightly worse today; although he doesn't fell like he is. Respiratory failure is possibly due to underlying cancer. Unfortunately, we were not able to get any cells from the paracentesis. Status post liver biopsy 03/05/2017. Await results. Continue nasal cannula. Keep oxygen at a goal of greater than 88% (2) Cirrhosis of liver Qualifiers: Hepatic cirrhosis type: alcoholic cirrhosis Is this a current diagnosis for this admission?: YesPlan: Continue diuresis for anasarca. I do have concern that some of his ascites is due to metastases from a primary source (3) Pulmonary metastases Qualifiers: Laterality: unspecified laterality Qualified Code(s): C78.00 - Secondary malignant neoplasm of unspecified lung Is this a current diagnosis for this admission?: YesPlan: Oncology services are following. Cytology for paracentesis was negative. Status post liver biopsy. Await pathology results (4) Thrombocytopenia Is this a current diagnosis for this admission?: YesPlan: Status post platelet transfusion x2. Stable. Will continue to monitor. (5) Right heart failure Is this a current diagnosis for this admission?: YesPlan: Improved. Continue diuresis. I will give an extra dose today (6) Sepsis Qualifiers: Sepsis type: sepsis due to unspecified organism Qualified Code(s): A41.9 - Sepsis, unspecified organism Is this a current diagnosis for this admission?: YesPlan: Resolved. (7) Atrial fibrillation with RVR Plan: Continue p.o. Cardizem. Tolerating this well. We will prescribe once a day dosing at this point (8) Full code status Is this a current diagnosis for this admission?: YesPlan: The patient's CODE STATUS is reviewed with him. I reviewed his current diagnoses and prognoses with respect to his respiratory status. The patient wishes to continue to remain full code (9) Ecchymoses, spontaneous Plan: Hui Katz sign. For retroperitoneal hematoma given that he recently had intervention for paracentesis. Will check CT of the abdomen. Waiting for today 's labs to come back. - Time Time Spent with patient: 25-34 minutes Anticipated discharge: Home - Inpatient Certification Medical Necessity: Need Close Monitoring Due to Risk of Patient Decompensation
[2017-03-08 15:24] LABS: ANION GAP 10 (5-19); BLOOD UREA NITROGEN 27 mg/dL (7-20); CALCIUM 8.1 mg/dL (8.4-10.2); CARBON DIOXIDE 21 mmol/L (22-30); CHLORIDE 98 mmol/L (98-107); CREATININE RESULT 0.87 mg/dL (0.52-1.25); GLUCOSE 263 mg/dL (75-110); MAGNESIUM 1.8 mg/dL (1.6-2.3); POTASSIUM 4.1 mmol/L (3.6-5.0); SODIUM 129.2 mmol/L (137-145)
[2017-03-08 15:40] LABS: ABSOLUTE BASOPHILS # (AUTO) 0.1 10^3/uL (0.0-0.2); ABSOLUTE EOSINOPHILS # (AUTO) 0.1 10^3/uL (0.0-0.6); ABSOLUTE LYMPHOCYTES (AUTO) 0.8 10^3/uL (0.5-4.7); ABSOLUTE MONOCYTES (AUTO) 0.8 10^3/uL (0.1-1.4); ABSOLUTE NEUT (AUTO) 8.4 10^3/uL (1.7-8.2); BASOPHILS % (AUTO) 0.6 % (0-2); EOSINOPHILS % (AUTO) 1.1 % (0-6); HEMATOCRIT 30.3 % (37.9-51.0); HEMOGLOBIN 10.1 g/dL (13.5-17.0); LYMPHOCYTES % (AUTO) 7.5 % (13-45); MEAN CORPUSCULAR HEMOGLOBIN 40.2 pg (27.0-33.4); MEAN CORPUSCULAR HGB CONC 33.3 g/dL (32.0-36.0); MEAN CORPUSCULAR VOLUME 121 fl (80-97); MONOCYTES % (AUTO) 8.2 % (3-13); RED BLOOD COUNT 2.51 10^6/uL (4.35-5.55); RED CELL DISTRIBUTION WIDTH 16.4 % (11.5-14.0); SEGMENTED NEUTROPHILS % (AUTO) 82.6 % (42-78); WHITE BLOOD COUNT 10.1 10^3/uL (4.0-10.5)
[2017-03-08 15:46] LABS: ANISOCYTOSIS 1+; OVALOCYTES 1+; POIKILOCYTOSIS 1+; POLYCHROMASIA 1+; SCHISTOCYTES SLIGHT; TOXIC GRANULATION SLIGHT; TOXIC VACUOLATION PRESENT
--- NOTE | 2017-03-09 00:22 | PDOC PROGRESS REPORT ---
Subjective Progress Note for:: 03/08/17 Subjective:: Oozing from paracentesis site Physical Exam Vital Signs: Temp Pulse Resp BP Pulse Ox 97.6 F 92 28 H 136/75 H 80 L 03/08/17 11:46 03/08/17 11:46 03/08/17 11:46 03/08/17 11:46 03/08/17 11:46 Intake & Output 03/07/17 03/08/17 03/09/17 06:59 06:59 06:59 Intake Total 1715 1087 458 Output Total 925 809 275 Balance 790 278 183 Weight 94.9 kg 95.7 kg General appearance: PRESENT: mild distress Head exam: PRESENT: normocephalic Eye exam: PRESENT: scleral icterus Respiratory exam: PRESENT: tachypnea Cardiovascular exam: PRESENT: tachycardia GI/Abdominal exam: PRESENT: distended, other - Serosanguinous fluid from the paracentesis site with ecchymosis in the right flank. Extremities exam: PRESENT: +2 edema Neurological exam: PRESENT: alert, oriented to person, oriented to place, oriented to time, oriented to situation, CN II-XII grossly intact Results Laboratory Results: 03/08/17 14:50 03/08/17 14:50 03/08/17 03/08/17 03/08/17 13:35 13:35 14:50 WBC Cancelled RBC Cancelled Hgb Cancelled Hct Cancelled MCV Cancelled MCH Cancelled MCHC Cancelled RDW Cancelled Plt Count Cancelled Seg Neutrophils % Cancelled Lymphocytes % Cancelled Monocytes % Cancelled Eosinophils % Cancelled Basophils % Cancelled Absolute Neutrophils Cancelled Absolute Lymphocytes Cancelled Absolute Monocytes Cancelled Absolute Eosinophils Cancelled Absolute Basophils Cancelled Sodium Cancelled Potassium Cancelled Chloride Cancelled Carbon Dioxide Cancelled Anion Gap Cancelled BUN Cancelled Creatinine Cancelled Est GFR ( Amer) Cancelled Est GFR (Non-Af Amer) Cancelled Glucose Cancelled Calcium Cancelled Magnesium Cancelled Blood Type AB POSITIVE 03/08/17 03/08/17 14:50 14:50 WBC 10.1 RBC 2.51 L Hgb 10.1 L Hct 30.3 L MCV 121 H MCH 40.2 H MCHC 33.3 RDW 16.4 H Plt Count 40 L Seg Neutrophils % 82.6 H Lymphocytes % 7.5 L Monocytes % 8.2 Eosinophils % 1.1 Basophils % 0.6 Absolute Neutrophils 8.4 H Absolute Lymphocytes 0.8 Absolute Monocytes 0.8 Absolute Eosinophils 0.1 Absolute Basophils 0.1 Sodium 129.2 L Potassium 4.1 Chloride 98 Carbon Dioxide 21 L Anion Gap 10 BUN 27 H Creatinine 0.87 Est GFR ( Amer) > 60 Est GFR (Non-Af Amer) > 60 Glucose 263 H Calcium 8.1 L Magnesium 1.8 Blood Type 03/06/17 14:10 Clean Catch Midstream Urine Culture - Final NO GROWTH 2 DAYS Impressions: Chest X-Ray 02/28/17 18:54 IMPRESSION: Abnormal opacities in the lungs bilaterally, acuity indeterminate. See above. Abdomen/Pelvis CT 03/01/17 00:00 IMPRESSION: Metastatic disease pattern consistent with CT from of the chest, 1 day prior. There are innumerable pulmonary nodules of the lung bases, retroperitoneal lymphadenopathy, indeterminate liver lesions, and moderate ascites. Venous Doppler Study 03/01/17 00:00 IMPRESSION: NO EVIDENCE DVT OR SVT IN EITHER LEG. Body Scan Nuclear Medicine 03/02/17 00:00 IMPRESSION: No areas of increased uptake worrisome for bony metastatic disease Chest/Abdomen CTA 03/04/17 00:00 IMPRESSION: 1. NORMAL CTA OF THE CHEST. NO PULMONARY EMBOLI. 2. STABLE FINDINGS RELATED TO MALIGNANCY AND METASTATIC INVOLVEMENT WITH NUMEROUS PULMONARY NODULES, MEDIASTINAL AND HILAR ADENOPATHY, LIVER LESIONS, AND ASCITES. SMALL PLEURAL EFFUSIONS. Guidance Needle Placement CT 03/05/17 00:00 IMPRESSION: Please see combined report for performance of procedure and radiologic supervision and interpretation. Paracentesis Ultrasound 03/05/17 00:00 IMPRESSION: SUCCESSFUL CT GUIDED PARACENTESIS. Liver Biopsy CT 03/05/17 07:00 IMPRESSION: CT GUIDED directed LIVER BIOPSY PERFORMED ABOVE. PATHOLOGY PENDING. NO IMMEDIATE COMPLICATIONS. Assessment & Plan - Diagnosis (1) Cirrhosis of liver Qualifiers: Hepatic cirrhosis type: alcoholic cirrhosis Is this a current diagnosis for this admission?: YesPlan: Recurrent drainage from the paracentesis and awating path report. Would transfuse 2Units of FFP. (2) Pulmonary metastases Qualifiers: Laterality: unspecified laterality Qualified Code(s): C78.00 - Secondary malignant neoplasm of unspecified lung Is this a current diagnosis for this admission?: YesPlan: Awaiting pathology. (3) Hepatitis C Qualifiers: Viral hepatitis chronicity: chronic Hepatic coma status: without hepatic coma Qualified Code(s): B18.2 - Chronic viral hepatitis C Is this a current diagnosis for this admission?: YesPlan: Coagulopathy from liver disease. - Time Time Spent with patient: 25-34 minutes Critical Time spent with patient: 15-24 minutes Medications reviewed and adjusted accordingly: Yes - Inpatient Certification Medical Necessity: Need Close Monitoring Due to Risk of Patient Decompensation
--- NOTE | 2017-03-09 03:01 | RADIOLOGY REPORT (SQ) ---
EXAM DESCRIPTION: CT ABD/PELVIS NO ORAL OR IV COMPLETED DATE/TIME: 03/09/2017 2:13 am REASON FOR STUDY: r/o retroperitoneal hematoma COMPARISON: 03/01/2017. TECHNIQUE: CT scan of the abdomen and pelvis performed without intravenous or oral contrast. Images reviewed with lung, soft tissue, and bone windows. Reconstructed coronal and sagittal MPR images revi ewed. All images stored on PACS. All CT scanners at this facility use dose modulation, iterative reconstruction, and/or weight based d osing when appropriate to reduce radiation dose to as low as reasonably achievable (ALARA). [facility]: Dose Right [facility]: CareDose [facility]: Dose Right [facility]: Teradose 4D [facility]: Shahiya RADIATION DOSE: 947 LIMITATIONS: None. FINDINGS: No significant interval changes compared with exam from 8 days prior. There are innumerab le pulmonary nodules of the lung bases, retroperitoneal lymphadenopathy, indeterminate liver lesions, and moderate ascites without suspicious interval change. No evidence of retroperitoneal hematoma, a s queried. IMPRESSION: Stable. TECHNICAL DOCUMENTATION: JOB ID: [id number] Quality ID # [id number]: Final reports with documentation of one or more dose reduction techniques (e.g., Au tomated exposure control, adjustment of the mA and/or kV according to patient size, use of iterative reconstruction technique) 2010 [employer]- All Rights Reserved
[2017-03-09 03:59] LABS: HEMATOCRIT 28.8 % (37.9-51.0); HEMOGLOBIN 9.8 g/dL (13.5-17.0); HGB HCT DIFFERENCE 0.6; MEAN CORPUSCULAR HEMOGLOBIN 40.6 pg (27.0-33.4); MEAN CORPUSCULAR HGB CONC 34.2 g/dL (32.0-36.0); MEAN CORPUSCULAR VOLUME 119 fl (80-97); RED BLOOD COUNT 2.42 10^6/uL (4.35-5.55); RED CELL DISTRIBUTION WIDTH 15.9 % (11.5-14.0); WHITE BLOOD COUNT 9.6 10^3/uL (4.0-10.5)
[2017-03-09] MEDS: OXYCODONE-ACETAMINOPHEN 5-325 MG TABLET PO PRN ×5 (05:17→21:37)
--- NOTE | 2017-03-09 08:48 | PDOC PROGRESS REPORT ---
Subjective Progress Note for:: 03/09/17 Subjective:: Reports "breathing ok" and pain controlled but has required a FM overnight. Sounds more congested this am. Physical Exam Vital Signs: Temp Pulse Resp BP Pulse Ox 97.8 F 83 24 H 122/67 98 03/09/17 07:27 03/09/17 07:27 03/09/17 07:27 03/09/17 07:27 03/09/17 07:27 Intake & Output 03/08/17 03/09/17 03/10/17 06:59 06:59 06:59 Intake Total 1087 1757 Output Total 809 1000 Balance 278 757 Weight 95.7 kg 98.5 kg General appearance: PRESENT: mild distress, other - but chronic Head exam: PRESENT: atraumatic, normocephalic Eye exam: PRESENT: conjunctiva pale, scleral icterus Respiratory exam: PRESENT: prolonged expiratory phas, rhonchi Cardiovascular exam: PRESENT: tachycardia GI/Abdominal exam: PRESENT: distended, other - Ecchymosis on the right flank greater Extremities exam: PRESENT: +1 edema, +2 edema Neurological exam: PRESENT: alert, awake, oriented to person, oriented to place , oriented to time, CN II-XII grossly intact Psychiatric exam: PRESENT: depressed Results Laboratory Results: 03/09/17 03:04 03/08/17 14:50 03/08/17 03/08/17 03/08/17 13:35 13:35 14:50 WBC Cancelled RBC Cancelled Hgb Cancelled Hct Cancelled MCV Cancelled MCH Cancelled MCHC Cancelled RDW Cancelled Plt Count Cancelled Seg Neutrophils % Cancelled Lymphocytes % Cancelled Monocytes % Cancelled Eosinophils % Cancelled Basophils % Cancelled Absolute Neutrophils Cancelled Absolute Lymphocytes Cancelled Absolute Monocytes Cancelled Absolute Eosinophils Cancelled Absolute Basophils Cancelled Sodium Cancelled Potassium Cancelled Chloride Cancelled Carbon Dioxide Cancelled Anion Gap Cancelled BUN Cancelled Creatinine Cancelled Est GFR ( Amer) Cancelled Est GFR (Non-Af Amer) Cancelled Glucose Cancelled Calcium Cancelled Magnesium Cancelled Blood Type AB POSITIVE 03/08/17 03/08/17 03/09/17 14:50 14:50 03:04 WBC 10.1 9.6 RBC 2.51 L 2.42 L Hgb 10.1 L 9.8 L Hct 30.3 L 28.8 L MCV 121 H 119 H MCH 40.2 H 40.6 H MCHC 33.3 34.2 RDW 16.4 H 15.9 H Plt Count 40 L 41 L Seg Neutrophils % 82.6 H Lymphocytes % 7.5 L Monocytes % 8.2 Eosinophils % 1.1 Basophils % 0.6 Absolute Neutrophils 8.4 H Absolute Lymphocytes 0.8 Absolute Monocytes 0.8 Absolute Eosinophils 0.1 Absolute Basophils 0.1 Sodium 129.2 L Potassium 4.1 Chloride 98 Carbon Dioxide 21 L Anion Gap 10 BUN 27 H Creatinine 0.87 Est GFR ( Amer) > 60 Est GFR (Non-Af Amer) > 60 Glucose 263 H Calcium 8.1 L Magnesium 1.8 Blood Type 03/06/17 14:10 Clean Catch Midstream Urine Culture - Final NO GROWTH 2 DAYS Impressions: Chest X-Ray 02/28/17 18:54 IMPRESSION: Abnormal opacities in the lungs bilaterally, acuity indeterminate. See above. Venous Doppler Study 03/01/17 00:00 IMPRESSION: NO EVIDENCE DVT OR SVT IN EITHER LEG. Body Scan Nuclear Medicine 03/02/17 00:00 IMPRESSION: No areas of increased uptake worrisome for bony metastatic disease Chest/Abdomen CTA 03/04/17 00:00 IMPRESSION: 1. NORMAL CTA OF THE CHEST. NO PULMONARY EMBOLI. 2. STABLE FINDINGS RELATED TO MALIGNANCY AND METASTATIC INVOLVEMENT WITH NUMEROUS PULMONARY NODULES, MEDIASTINAL AND HILAR ADENOPATHY, LIVER LESIONS, AND ASCITES. SMALL PLEURAL EFFUSIONS. Guidance Needle Placement CT 03/05/17 00:00 IMPRESSION: Please see combined report for performance of procedure and radiologic supervision and interpretation. Paracentesis Ultrasound 03/05/17 00:00 IMPRESSION: SUCCESSFUL CT GUIDED PARACENTESIS. Liver Biopsy CT 03/05/17 07:00 IMPRESSION: CT GUIDED directed LIVER BIOPSY PERFORMED ABOVE. PATHOLOGY PENDING. NO IMMEDIATE COMPLICATIONS. Abdomen/Pelvis CT 03/08/17 00:00 IMPRESSION: Stable. Assessment & Plan - Diagnosis (1) Cirrhosis of liver Qualifiers: Hepatic cirrhosis type: alcoholic cirrhosis Is this a current diagnosis for this admission?: YesPlan: Will give a trial of Albumin and lasix. IF his BP will support it, could give a trial of aldactone. (2) Pulmonary metastases Qualifiers: Laterality: unspecified laterality Qualified Code(s): C78.00 - Secondary malignant neoplasm of unspecified lung Is this a current diagnosis for this admission?: YesPlan: Awaiting path still. Will discuss with the patient once available. Poor prognosis however due to performance status. (3) Hepatitis C Qualifiers: Viral hepatitis chronicity: chronic Hepatic coma status: without hepatic coma Qualified Code(s): B18.2 - Chronic viral hepatitis C Is this a current diagnosis for this admission?: Yes - Time Time Spent with patient: 25-34 minutes Critical Time spent with patient: 15-24 minutes Medications reviewed and adjusted accordingly: Yes
[2017-03-09] MEDS ORDERED: FUROSEMIDE INJ/PF 20 MG/2 ML SDV IV PRN (11:00)
[2017-03-09] MEDS: ALBUMIN HUMAN 50 ML IV SCH ×2 (11:15→11:56)
[2017-03-09] MEDS: DILTIAZEM HCL 180 MG CAPSULE.CR PO SCH (11:16)
[2017-03-09] MEDS: POTASSIUM CHLORIDE 10 MEQ TABLET.SA PO SCH (11:17)
[2017-03-09] MEDS: THIAMINE HCL 100 MG TABLET PO SCH (11:17)
[2017-03-09] MEDS: FUROSEMIDE 40 MG TABLET PO SCH ×2 (11:17→17:47)
[2017-03-09] MEDS: FOLIC ACID 1 MG TABLET PO SCH (11:18)
[2017-03-09] MEDS: MULTIVITAMIN TABLET PO SCH (11:18)
--- NOTE | 2017-03-09 11:36 | OPERATIVE REPORT E ---
Operative Report NAME: YEIMI SCHILLING : 1955 AGE: 61Y DATE OF SURGERY: 03/08/2016 ROOM: 320 PREOPERATIVE DIAGNOSIS: Ascitic FLUID LEAKING FROM PARACENTESIS SITES x2, RIGHT UPPER QUADRANT AND RIGHT LOWER QUADRANT ABDOMINAL WALL. POSTOPERATIVE DIAGNOSIS: AscITIC FLUID LEAKING FROM PARACENTESIS SITES x2, RIGHT UPPER QUADRANT AND RIGHT LOWER QUADRANT ABDOMINAL WALL. PROCEDURE: Ovatlb-[id number] oversewing of paracentesis exit sites. SURGEON: ANTONIO CARRANZA M.D. ANESTHESIA: Lidocaine 1% plain. COMPLICATIONS: None. ESTIMATED BLOOD LOSS: Scant. DRAINS: None. TISSUE REMOVED: Uncertain. PROCEDURE: The patient's right-sided abdominal wall was prepped with chlorhexidine. Surgical timeout was conducted. Skin was anesthetized with 1% lidocaine with epinephrine. Using 3-0 Prolene suture, [id number] sutures were placed at the exit sites of the previous paracentesis performed in the right upper quadrant and right lower quadrant. Bleeding was negligible. The leak from each site stopped. The patient tolerated procedure well. PLAN: Leave sutures in. Consult Surgery for further issues as need arises. DICTATING PHYSICIAN: ANTONIO CARRANZA M.D. [id number] PHY#: [id number] ID: [id number] JOB#: [id number] ACCT: [id number] cc:ANTONIO CARRANZA M.D. > MTDD
--- NOTE | 2017-03-09 12:11 | PDOC PROGRESS REPORT ---
Subjective Progress Note for:: 03/09/17 Subjective:: reason for visit: f/u liver cirrhosis with ascites, pulmonary nodules, liver masses, hypoxia, afib with rvr hospital course: review of notes so far - 61-year-old male with known history of hepatitis C/cirrhosis, recently increasing abdominal girth, has visible jaundice, telangiectasias, he had CTA of the chest done because of increasing shortness of breath, this indicated diffuse bilateral pulmonary nodules the largest was 1.8 cm, mediastinal adenopathy that was bulky, retroperitoneal adenopathy also bulky. There is some hypodensities in the liver but it was not fully evaluated by the imaging. He denies weight loss but his major complaint has been increasing abdominal girth and shortness of breath. He does have history of heavy drinking in the past but denies heavy drinking over the last few years. He was told about hepatitis C about 2 years ago. Patient describes a 2 week history of progressive shortness of breath, in particular with much of any exertion. This is been particularly noticeable over the last 5 days. He is unable to walk over the last day or so simply because he is too short of breath. There has been no chest pain, fever or chills. Mild dry cough. Has chronic intermittent bilateral lower extremity edema, worse over the past 2 days. Underlying hypertension, but denies previous myocardial infarction, congestive heart failure, pulmonary embolus, or DVT. Was in significant respiratory distress upon presentation, necessitating application of BiPAP, which is since been changed to CPAP. Breathing a bit more comfortably now. Of note, patient is a rambling historian, and seems to have poor insight at best into acute and chronic medical issues. Denies any recent significant weight loss." I followed up with him the morning of admission and he was still requiring BIPAP for increased WOB and hypoxia when off of it. he states he simply " cannot breathe without it right now" and has no prior hx of DAYRON or CPAP needs. he does have hx of COPD "but not yet full blown emphysema" and uses nebulizer machine at home but no home O2. During this last 7 days the patient has improved remarkably with his lower extremity swelling. Developed A. fib with RVR old initially with Cardizem drip. The patient is now on p.o. part Cardizem and doing well. He underwent paracentesis at 1100 mL of fluid taken off. The Cytology of the ascitic fluid was not helpful. He underwent biopsy of the liver and pathology is pending. Yesterday the patient developed oozing of his peritoneal site and a colostomy bag was placed over it. He also developed marked increased swelling in the lower extremities. He states he feels better overall. Denies any chest pain or worsening shortness of breath, but on exam and clinically he is worse. Overnight he has developed ecchymosis of the right flank. He is not receiving heparin products. He has discomfort of this area. I resumed his care Zee and he appears overall better than when I left him a week ago but certainly not well enough to disposition home just yet. He remains very weak, easily winded and unable to care for himself at this juncture. He has undergone 2 attempts at tissue diagnosis for what is believed to be malignancy without achieving confirmation of anything other than severe cirrhosis. ROS: dyspnea with minimal exertion, sharp stabbing pain in Rt side and hip after liver Bx, nonradiating and worse with certain positions, better with others and no other asct'd symptopms. he denies chest pain, palpitations, N/V/D , melena, hematochezia, total 10 systems reviewed, remaining systems negative. Physical Exam Vital Signs: Temp Pulse Resp BP Pulse Ox 97.8 F 83 24 H 122/67 98 03/09/17 07:27 03/09/17 07:27 03/09/17 07:27 03/09/17 07:27 03/09/17 07:27 Intake & Output 03/08/17 03/09/17 03/10/17 06:59 06:59 06:59 Intake Total 1087 1757 Output Total 809 1000 Balance 278 757 Weight 95.7 kg 98.5 kg General appearance: PRESENT: no acute distress, well-developed, well-nourished Head exam: PRESENT: atraumatic, normocephalic Eye exam: PRESENT: EOMI, scleral icterus. ABSENT: conjunctival injection Mouth exam: PRESENT: moist, neck supple Teeth exam: PRESENT: poor dentation Neck exam: PRESENT: full ROM. ABSENT: tracheal deviation Respiratory exam: PRESENT: rales - bases but no wheeze. ABSENT: accessory muscle use Cardiovascular exam: PRESENT: RRR. ABSENT: systolic murmur Pulses: PRESENT: normal radial pulses GI/Abdominal exam: PRESENT: distended, normal bowel sounds, soft, tenderness - diffuse and mild with palpation Extremities exam: PRESENT: +1 edema. ABSENT: calf tenderness Musculoskeletal exam: PRESENT: full ROM. ABSENT: ambulatory - weak at 4/5 at best in all ext's Neurological exam: PRESENT: alert, awake, oriented to person, oriented to place , oriented to time Psychiatric exam: PRESENT: appropriate affect, normal mood Skin exam: PRESENT: jaundice, petechiae, other - diffuse dark purple area of ecchymosis tracking from just under his ribs down his flank and into his thigh; no erythema or heat, mild tender to touch Results Laboratory Results: 03/09/17 03:04 03/08/17 14:50 03/08/17 03/08/17 03/08/17 13:35 13:35 14:50 WBC Cancelled RBC Cancelled Hgb Cancelled Hct Cancelled MCV Cancelled MCH Cancelled MCHC Cancelled RDW Cancelled Plt Count Cancelled Seg Neutrophils % Cancelled Lymphocytes % Cancelled Monocytes % Cancelled Eosinophils % Cancelled Basophils % Cancelled Absolute Neutrophils Cancelled Absolute Lymphocytes Cancelled Absolute Monocytes Cancelled Absolute Eosinophils Cancelled Absolute Basophils Cancelled Sodium Cancelled Potassium Cancelled Chloride Cancelled Carbon Dioxide Cancelled Anion Gap Cancelled BUN Cancelled Creatinine Cancelled Est GFR ( Amer) Cancelled Est GFR (Non-Af Amer) Cancelled Glucose Cancelled Calcium Cancelled Magnesium Cancelled Blood Type AB POSITIVE 03/08/17 03/08/17 03/09/17 14:50 14:50 03:04 WBC 10.1 9.6 RBC 2.51 L 2.42 L Hgb 10.1 L 9.8 L Hct 30.3 L 28.8 L MCV 121 H 119 H MCH 40.2 H 40.6 H MCHC 33.3 34.2 RDW 16.4 H 15.9 H Plt Count 40 L 41 L Seg Neutrophils % 82.6 H Lymphocytes % 7.5 L Monocytes % 8.2 Eosinophils % 1.1 Basophils % 0.6 Absolute Neutrophils 8.4 H Absolute Lymphocytes 0.8 Absolute Monocytes 0.8 Absolute Eosinophils 0.1 Absolute Basophils 0.1 Sodium 129.2 L Potassium 4.1 Chloride 98 Carbon Dioxide 21 L Anion Gap 10 BUN 27 H Creatinine 0.87 Est GFR ( Amer) > 60 Est GFR (Non-Af Amer) > 60 Glucose 263 H Calcium 8.1 L Magnesium 1.8 Blood Type 03/06/17 14:10 Clean Catch Midstream Urine Culture - Final NO GROWTH 2 DAYS Impressions: Abdomen/Pelvis CT 03/08/17 00:00 IMPRESSION: Stable. Status: Image reviewed by me - i disagree with radiology in that I see fluid in the soft tissues on the Right, in the area of ecchymosis noted on exam Assessment & Plan - Diagnosis (1) Acute hypoxemic respiratory failure Is this a current diagnosis for this admission?: YesPlan: mildly improved but not back to baseline; likely 2/2 pulmonary nodules and underlhying lung disease and less likely infectious as originally hoped, abx stopped yesterday. continue supplemental O2 and attempts to maintain euvolemia as his condition will allow. Dr Brush has ordered IV lasix and albumin today in an effort to do just that. (2) Pulmonary nodule Is this a current diagnosis for this admission?: YesPlan: unchanged and very worrisome for neoplastic process but we have been unsuccessful in confirming a tissue diagnosis; it is unlikely he would do well with ct guided lung Bx or bronchoscopy. nevertheless, his clinical condition/ functional status is such that he wouldn't tolerate chemo anyway, per my discussion with dr brush. It would seem he is more appropriate for hospice and palliative care, if not for this then for his advanced liver cirrhosis. he is not open to that discussion with me this morning, will try to approach his family later today. (3) Sepsis Qualifiers: Sepsis type: sepsis due to unspecified organism Qualified Code(s): A41.9 - Sepsis, unspecified organism Is this a current diagnosis for this admission?: Yes (4) Hepatitis C Qualifiers: Viral hepatitis chronicity: chronic Hepatic coma status: without hepatic coma Qualified Code(s): B18.2 - Chronic viral hepatitis C Is this a current diagnosis for this admission?: YesPlan: genotype 1a, most refractory and difficult to treat, particularly for someone in his condition. (5) Macrocytosis Is this a current diagnosis for this admission?: Yes (6) Thrombocytopenia Is this a current diagnosis for this admission?: Yes (7) Cirrhosis of liver Qualifiers: Hepatic cirrhosis type: alcoholic cirrhosis Is this a current diagnosis for this admission?: YesPlan: advanced per Bx complicated by chronic Hep C, with resultant complications of marrow dysfxn, coagulopathy and ascites. (8) Right heart failure Is this a current diagnosis for this admission?: Yes (9) Hypergammaglobulinemia, unspecified Is this a current diagnosis for this admission?: Yes (10) Atrial fibrillation with RVR Is this a current diagnosis for this admission?: YesPlan: rate and rhythm controlled at present (11) Ecchymoses, spontaneous Is this a current diagnosis for this admission?: YesPlan: likely spontaneous hemorrhage under the skin after Bx; no signs of active hemorrhage at this time. (12) Full code status Is this a current diagnosis for this admission?: Yes - Time Time Spent with patient: 35 or more minutes Medications reviewed and adjusted accordingly: Yes - Plan Summary Plan Summary: disposition is uncertain as I don't believe he fully understands the gravity of his situation, is incapable of self care and normal ADLs, and no family present to discuss how we proceed from here.
--- NOTE | 2017-03-09 13:45 | PDOC PROGRESS REPORT ---
Subjective Progress Note for:: 03/08/17 Subjective:: Awake alert well oriented Physical Exam Vital Signs: Temp Pulse Resp BP Pulse Ox 97.8 F 83 24 H 122/67 98 03/09/17 07:27 03/09/17 07:27 03/09/17 07:27 03/09/17 07:27 03/09/17 07:27 Intake & Output 03/08/17 03/09/17 03/10/17 06:59 06:59 06:59 Intake Total 1087 1757 Output Total 809 1000 Balance 278 757 Weight 95.7 kg 98.5 kg General appearance: PRESENT: no acute distress, cooperative, disheveled, thin, well-developed Head exam: PRESENT: atraumatic, normocephalic Eye exam: PRESENT: conjunctiva pale, EOMI Mouth exam: PRESENT: dry mucosa, neck supple Teeth exam: PRESENT: poor dentation Neck exam: ABSENT: carotid bruit, JVD, lymphadenopathy, thyromegaly Respiratory exam: PRESENT: decreased breath sounds, prolonged expiratory phas, rhonchi, unlabored Cardiovascular exam: PRESENT: RRR, +S1, +S2 GI/Abdominal exam: PRESENT: normal bowel sounds, soft. ABSENT: distended, guarding, mass, organolmegaly, rebound, tenderness Rectal exam: PRESENT: deferred Gentrourinary exam: PRESENT: indwelling catheter Musculoskeletal exam: PRESENT: normal inspection Neurological exam: PRESENT: awake Skin exam: PRESENT: dry, warm Results Laboratory Results: 03/09/17 03:04 03/08/17 14:50 03/08/17 03/08/17 03/08/17 13:35 13:35 14:50 WBC Cancelled RBC Cancelled Hgb Cancelled Hct Cancelled MCV Cancelled MCH Cancelled MCHC Cancelled RDW Cancelled Plt Count Cancelled Seg Neutrophils % Cancelled Lymphocytes % Cancelled Monocytes % Cancelled Eosinophils % Cancelled Basophils % Cancelled Absolute Neutrophils Cancelled Absolute Lymphocytes Cancelled Absolute Monocytes Cancelled Absolute Eosinophils Cancelled Absolute Basophils Cancelled Sodium Cancelled Potassium Cancelled Chloride Cancelled Carbon Dioxide Cancelled Anion Gap Cancelled BUN Cancelled Creatinine Cancelled Est GFR ( Amer) Cancelled Est GFR (Non-Af Amer) Cancelled Glucose Cancelled Calcium Cancelled Magnesium Cancelled Blood Type AB POSITIVE 03/08/17 03/08/17 03/09/17 14:50 14:50 03:04 WBC 10.1 9.6 RBC 2.51 L 2.42 L Hgb 10.1 L 9.8 L Hct 30.3 L 28.8 L MCV 121 H 119 H MCH 40.2 H 40.6 H MCHC 33.3 34.2 RDW 16.4 H 15.9 H Plt Count 40 L 41 L Seg Neutrophils % 82.6 H Lymphocytes % 7.5 L Monocytes % 8.2 Eosinophils % 1.1 Basophils % 0.6 Absolute Neutrophils 8.4 H Absolute Lymphocytes 0.8 Absolute Monocytes 0.8 Absolute Eosinophils 0.1 Absolute Basophils 0.1 Sodium 129.2 L Potassium 4.1 Chloride 98 Carbon Dioxide 21 L Anion Gap 10 BUN 27 H Creatinine 0.87 Est GFR ( Amer) > 60 Est GFR (Non-Af Amer) > 60 Glucose 263 H Calcium 8.1 L Magnesium 1.8 Blood Type 03/06/17 14:10 Clean Catch Midstream Urine Culture - Final NO GROWTH 2 DAYS Impressions: Chest X-Ray 02/28/17 18:54 IMPRESSION: Abnormal opacities in the lungs bilaterally, acuity indeterminate. See above. Venous Doppler Study 03/01/17 00:00 IMPRESSION: NO EVIDENCE DVT OR SVT IN EITHER LEG. Body Scan Nuclear Medicine 03/02/17 00:00 IMPRESSION: No areas of increased uptake worrisome for bony metastatic disease Chest/Abdomen CTA 03/04/17 00:00 IMPRESSION: 1. NORMAL CTA OF THE CHEST. NO PULMONARY EMBOLI. 2. STABLE FINDINGS RELATED TO MALIGNANCY AND METASTATIC INVOLVEMENT WITH NUMEROUS PULMONARY NODULES, MEDIASTINAL AND HILAR ADENOPATHY, LIVER LESIONS, AND ASCITES. SMALL PLEURAL EFFUSIONS. Guidance Needle Placement CT 03/05/17 00:00 IMPRESSION: Please see combined report for performance of procedure and radiologic supervision and interpretation. Paracentesis Ultrasound 03/05/17 00:00 IMPRESSION: SUCCESSFUL CT GUIDED PARACENTESIS. Liver Biopsy CT 03/05/17 07:00 IMPRESSION: CT GUIDED directed LIVER BIOPSY PERFORMED ABOVE. PATHOLOGY PENDING. NO IMMEDIATE COMPLICATIONS. Abdomen/Pelvis CT 03/08/17 00:00 IMPRESSION: Stable. Assessment & Plan - Diagnosis (1) Acute hypoxemic respiratory failure Is this a current diagnosis for this admission?: No (2) Cirrhosis of liver Qualifiers: Hepatic cirrhosis type: alcoholic cirrhosis Is this a current diagnosis for this admission?: Yes (3) Pulmonary nodule Is this a current diagnosis for this admission?: Yes (4) Hepatitis C Qualifiers: Viral hepatitis chronicity: chronic Hepatic coma status: without hepatic coma Qualified Code(s): B18.2 - Chronic viral hepatitis C Is this a current diagnosis for this admission?: Yes (5) Thrombocytopenia Is this a current diagnosis for this admission?: Yes
--- NOTE | 2017-03-09 13:50 | PDOC PROGRESS REPORT ---
Subjective Progress Note for:: 03/09/17 Subjective:: Awake and alert Physical Exam Vital Signs: Temp Pulse Resp BP Pulse Ox 97.8 F 83 24 H 122/67 98 03/09/17 07:27 03/09/17 07:27 03/09/17 07:27 03/09/17 07:27 03/09/17 07:27 Intake & Output 03/08/17 03/09/17 03/10/17 06:59 06:59 06:59 Intake Total 1087 1757 Output Total 809 1000 Balance 278 757 Weight 95.7 kg 98.5 kg General appearance: PRESENT: no acute distress, cooperative, disheveled, thin, well-developed Head exam: PRESENT: normocephalic Eye exam: PRESENT: conjunctiva pale, EOMI Mouth exam: PRESENT: moist, neck supple Teeth exam: PRESENT: poor dentation Neck exam: ABSENT: carotid bruit, JVD, lymphadenopathy, thyromegaly Respiratory exam: PRESENT: decreased breath sounds, prolonged expiratory phas, rhonchi, symmetrical, unlabored Cardiovascular exam: PRESENT: RRR, +S1, +S2 Pulses: PRESENT: normal radial pulses GI/Abdominal exam: PRESENT: normal bowel sounds, soft. ABSENT: distended, guarding, mass, organolmegaly, rebound, tenderness Rectal exam: PRESENT: deferred Musculoskeletal exam: PRESENT: normal inspection Neurological exam: PRESENT: awake Psychiatric exam: PRESENT: normal mood Skin exam: PRESENT: dry, warm Results Laboratory Results: 03/09/17 03:04 03/08/17 14:50 03/08/17 03/08/17 03/08/17 13:35 13:35 14:50 WBC Cancelled RBC Cancelled Hgb Cancelled Hct Cancelled MCV Cancelled MCH Cancelled MCHC Cancelled RDW Cancelled Plt Count Cancelled Seg Neutrophils % Cancelled Lymphocytes % Cancelled Monocytes % Cancelled Eosinophils % Cancelled Basophils % Cancelled Absolute Neutrophils Cancelled Absolute Lymphocytes Cancelled Absolute Monocytes Cancelled Absolute Eosinophils Cancelled Absolute Basophils Cancelled Sodium Cancelled Potassium Cancelled Chloride Cancelled Carbon Dioxide Cancelled Anion Gap Cancelled BUN Cancelled Creatinine Cancelled Est GFR ( Amer) Cancelled Est GFR (Non-Af Amer) Cancelled Glucose Cancelled Calcium Cancelled Magnesium Cancelled Blood Type AB POSITIVE 03/08/17 03/08/17 03/09/17 14:50 14:50 03:04 WBC 10.1 9.6 RBC 2.51 L 2.42 L Hgb 10.1 L 9.8 L Hct 30.3 L 28.8 L MCV 121 H 119 H MCH 40.2 H 40.6 H MCHC 33.3 34.2 RDW 16.4 H 15.9 H Plt Count 40 L 41 L Seg Neutrophils % 82.6 H Lymphocytes % 7.5 L Monocytes % 8.2 Eosinophils % 1.1 Basophils % 0.6 Absolute Neutrophils 8.4 H Absolute Lymphocytes 0.8 Absolute Monocytes 0.8 Absolute Eosinophils 0.1 Absolute Basophils 0.1 Sodium 129.2 L Potassium 4.1 Chloride 98 Carbon Dioxide 21 L Anion Gap 10 BUN 27 H Creatinine 0.87 Est GFR ( Amer) > 60 Est GFR (Non-Af Amer) > 60 Glucose 263 H Calcium 8.1 L Magnesium 1.8 Blood Type 03/06/17 14:10 Clean Catch Midstream Urine Culture - Final NO GROWTH 2 DAYS Impressions: Chest X-Ray 02/28/17 18:54 IMPRESSION: Abnormal opacities in the lungs bilaterally, acuity indeterminate. See above. Venous Doppler Study 03/01/17 00:00 IMPRESSION: NO EVIDENCE DVT OR SVT IN EITHER LEG. Body Scan Nuclear Medicine 03/02/17 00:00 IMPRESSION: No areas of increased uptake worrisome for bony metastatic disease Chest/Abdomen CTA 03/04/17 00:00 IMPRESSION: 1. NORMAL CTA OF THE CHEST. NO PULMONARY EMBOLI. 2. STABLE FINDINGS RELATED TO MALIGNANCY AND METASTATIC INVOLVEMENT WITH NUMEROUS PULMONARY NODULES, MEDIASTINAL AND HILAR ADENOPATHY, LIVER LESIONS, AND ASCITES. SMALL PLEURAL EFFUSIONS. Guidance Needle Placement CT 03/05/17 00:00 IMPRESSION: Please see combined report for performance of procedure and radiologic supervision and interpretation. Paracentesis Ultrasound 03/05/17 00:00 IMPRESSION: SUCCESSFUL CT GUIDED PARACENTESIS. Liver Biopsy CT 03/05/17 07:00 IMPRESSION: CT GUIDED directed LIVER BIOPSY PERFORMED ABOVE. PATHOLOGY PENDING. NO IMMEDIATE COMPLICATIONS. Abdomen/Pelvis CT 03/08/17 00:00 IMPRESSION: Stable. Assessment & Plan - Diagnosis (1) Acute hypoxemic respiratory failure Is this a current diagnosis for this admission?: YesPlan: Still requiring high FiO2 no evidence of hypercapnic respiratory failure (2) Cirrhosis of liver Qualifiers: Hepatic cirrhosis type: alcoholic cirrhosis Is this a current diagnosis for this admission?: YesPlan: Awaiting results of liver biopsy (3) Pulmonary nodule Is this a current diagnosis for this admission?: YesPlan: Pulmonary nodules as well as pleural-based nodules (4) Hepatitis C Qualifiers: Viral hepatitis chronicity: chronic Hepatic coma status: without hepatic coma Qualified Code(s): B18.2 - Chronic viral hepatitis C Is this a current diagnosis for this admission?: Yes (5) Thrombocytopenia Is this a current diagnosis for this admission?: YesPlan: Platelets down to 41,000
[2017-03-09 15:00] LABS: ARTERIAL BLOOD BASE EXCESS -1.4 mmol/L; ARTERIAL BLOOD O2 SATURATION 98.7 % (94-98)
[2017-03-09 15:03] LABS: ABSOLUTE BASOPHILS # (AUTO) 0.1 10^3/uL (0.0-0.2); ABSOLUTE EOSINOPHILS # (AUTO) 0.1 10^3/uL (0.0-0.6); ABSOLUTE LYMPHOCYTES (AUTO) 0.7 10^3/uL (0.5-4.7); ABSOLUTE MONOCYTES (AUTO) 0.7 10^3/uL (0.1-1.4); ABSOLUTE NEUT (AUTO) 7.2 10^3/uL (1.7-8.2); BASOPHILS % (AUTO) 0.6 % (0-2); EOSINOPHILS % (AUTO) 1.3 % (0-6); HEMATOCRIT 27.1 % (37.9-51.0); HEMOGLOBIN 9.3 g/dL (13.5-17.0); HGB HCT DIFFERENCE 0.8; LYMPHOCYTES % (AUTO) 8.1 % (13-45); MEAN CORPUSCULAR HEMOGLOBIN 40.6 pg (27.0-33.4); MEAN CORPUSCULAR HGB CONC 34.3 g/dL (32.0-36.0); MEAN CORPUSCULAR VOLUME 119 fl (80-97); MONOCYTES % (AUTO) 8.5 % (3-13); RED BLOOD COUNT 2.29 10^6/uL (4.35-5.55); RED CELL DISTRIBUTION WIDTH 15.7 % (11.5-14.0); SEGMENTED NEUTROPHILS % (AUTO) 81.5 % (42-78); WHITE BLOOD COUNT 8.8 10^3/uL (4.0-10.5)
[2017-03-09 15:17] LABS: ANION GAP 10 (5-19); BLOOD UREA NITROGEN 22 mg/dL (7-20); CALCIUM 8.5 mg/dL (8.4-10.2); CARBON DIOXIDE 22 mmol/L (22-30); CHLORIDE 99 mmol/L (98-107); CREATININE RESULT 0.81 mg/dL (0.52-1.25); GLUCOSE 180 mg/dL (75-110); POTASSIUM 4.1 mmol/L (3.6-5.0); SODIUM 130.8 mmol/L (137-145)
[2017-03-09 15:25] LABS: OVALOCYTES SLIGHT; SCHISTOCYTES SLIGHT; TEAR DROP CELLS SLIGHT
[2017-03-09 15:26] LABS: ANISOCYTOSIS SLIGHT; POIKILOCYTOSIS SLIGHT; POLYCHROMASIA SLIGHT
[2017-03-09 15:28] LABS: TOXIC GRANULATION SLIGHT
--- NOTE | 2017-03-09 16:34 | RADIOLOGY REPORT (SQ) ---
EXAM DESCRIPTION: CHEST SINGLE VIEW COMPLETED DATE/TIME: 03/09/2017 4:24 pm REASON FOR STUDY: lung nodules;hypoxia COMPARISON: Chest x-ray dated 02/28/2017. Chest CT dated 03/04/2017. EXAM PARAMETERS: NUMBER OF VIEWS: One view. TECHNIQUE: Single frontal radiographic view of the chest acquired. RADIATION DOSE: NA LIMITATIONS: None. FINDINGS: LUNGS AND PLEURA: Multiple pulmonary nodules throughout both lungs. No lobar infiltrate. No large pleural effusions. No pneumothorax. MEDIASTINUM AND HILAR STRUCTURES: No masses. Contour normal. HEART AND VASCULAR STRUCTURES: Heart normal in size. Normal vasculature. BONES: No acute findings. Degenerative changes in the spine. HARDWARE: None in the chest. OTHER: No other significant finding. IMPRESSION: STABLE APPEARANCE WITH MULTIPLE PULMONARY NODULES. NO ACUTE FINDINGS. TECHNICAL DOCUMENTATION: JOB ID: [id number]
[2017-03-10] MEDS: OXYCODONE-ACETAMINOPHEN 5-325 MG TABLET PO PRN ×3 (05:23→23:49)
[2017-03-10] MEDS: DILTIAZEM HCL 180 MG CAPSULE.CR PO SCH (08:59)
[2017-03-10] MEDS: FUROSEMIDE 40 MG TABLET PO SCH ×2 (08:59→17:35)
[2017-03-10] MEDS: MULTIVITAMIN TABLET PO SCH (09:00)
[2017-03-10] MEDS: FOLIC ACID 1 MG TABLET PO SCH (09:00)
[2017-03-10] MEDS: POTASSIUM CHLORIDE 10 MEQ TABLET.SA PO SCH (09:00)
[2017-03-10] MEDS: THIAMINE HCL 100 MG TABLET PO SCH (09:00)
[2017-03-10] MEDS: GUAIFENESIN SYRP 200 MG/10 ML UDC PO PRN (09:01)
--- NOTE | 2017-03-10 11:23 | PDOC PROGRESS REPORT ---
Subjective Progress Note for:: 03/10/17 Subjective:: reason for visit: f/u liver cirrhosis with ascites, pulmonary nodules, liver masses, hypoxia, afib with rvr hospital course: review of notes so far - 61-year-old male with known history of hepatitis C/cirrhosis, recently increasing abdominal girth, has visible jaundice, telangiectasias, he had CTA of the chest done because of increasing shortness of breath, this indicated diffuse bilateral pulmonary nodules the largest was 1.8 cm, mediastinal adenopathy that was bulky, retroperitoneal adenopathy also bulky. There is some hypodensities in the liver but it was not fully evaluated by the imaging. He denies weight loss but his major complaint has been increasing abdominal girth and shortness of breath. He does have history of heavy drinking in the past but denies heavy drinking over the last few years. He was told about hepatitis C about 2 years ago. Patient describes a 2 week history of progressive shortness of breath, in particular with much of any exertion. This is been particularly noticeable over the last 5 days. He is unable to walk over the last day or so simply because he is too short of breath. There has been no chest pain, fever or chills. Mild dry cough. Has chronic intermittent bilateral lower extremity edema, worse over the past 2 days. Underlying hypertension, but denies previous myocardial infarction, congestive heart failure, pulmonary embolus, or DVT. Was in significant respiratory distress upon presentation, necessitating application of BiPAP, which is since been changed to CPAP. Breathing a bit more comfortably now. Of note, patient is a rambling historian, and seems to have poor insight at best into acute and chronic medical issues. Denies any recent significant weight loss." I followed up with him the morning of admission and he was still requiring BIPAP for increased WOB and hypoxia when off of it. he states he simply " cannot breathe without it right now" and has no prior hx of DAYRON or CPAP needs. he does have hx of COPD "but not yet full blown emphysema" and uses nebulizer machine at home but no home O2. During this last 7 days the patient has improved remarkably with his lower extremity swelling. Developed A. fib with RVR old initially with Cardizem drip. The patient is now on p.o. part Cardizem and doing well. He underwent paracentesis at 1100 mL of fluid taken off. The Cytology of the ascitic fluid was not helpful. He underwent biopsy of the liver and pathology is pending. Yesterday the patient developed oozing of his peritoneal site and a colostomy bag was placed over it. He also developed marked increased swelling in the lower extremities. He states he feels better overall. Denies any chest pain or worsening shortness of breath, but on exam and clinically he is worse. Overnight he has developed ecchymosis of the right flank. He is not receiving heparin products. He has discomfort of this area. I resumed his care Zee and he appears overall better than when I left him a week ago but certainly not well enough to disposition home just yet. He remains very weak, easily winded and unable to care for himself at this juncture. He has undergone 2 attempts at tissue diagnosis for what is believed to be malignancy without achieving confirmation of anything other than severe cirrhosis. Family (son) has arrived and they have unrealistic expectations for him to recover enough to not only get the Bx and tissue diagnosis he wants but to also begin treatment and in spite of my and dr brush's efforts to educate them to risks and his poor functional status and challenging blood counts, failing liver, etc. ROS: dyspnea with minimal exertion. he denies chest pain, palpitations, N/V/D , melena, hematochezia, total 10 systems reviewed, remaining systems negative. Physical Exam Vital Signs: Temp Pulse Resp BP Pulse Ox 97.6 F 79 23 H 102/57 L 100 03/10/17 07:39 03/10/17 07:39 03/10/17 07:39 03/10/17 07:39 03/10/17 07:39 Intake & Output 03/09/17 03/10/17 03/11/17 06:59 06:59 06:59 Intake Total 1757 1530 Output Total 1000 1575 Balance 757 -45 Weight 98.5 kg 95.9 kg General appearance: PRESENT: no acute distress, well-developed, well-nourished Head exam: PRESENT: atraumatic, normocephalic Eye exam: PRESENT: EOMI, scleral icterus. ABSENT: conjunctival injection Mouth exam: PRESENT: moist, neck supple Teeth exam: PRESENT: poor dentation Neck exam: PRESENT: full ROM. ABSENT: tracheal deviation Respiratory exam: PRESENT: rales - bases but no wheeze. ABSENT: accessory muscle use Cardiovascular exam: PRESENT: RRR. ABSENT: systolic murmur Pulses: PRESENT: normal radial pulses GI/Abdominal exam: PRESENT: distended, normal bowel sounds, soft, tenderness - diffuse and mild with palpation Extremities exam: PRESENT: +1 edema. ABSENT: calf tenderness Musculoskeletal exam: PRESENT: full ROM. ABSENT: ambulatory - weak at 4/5 at best in all ext's Neurological exam: PRESENT: alert, awake, oriented to person, oriented to place , oriented to time Psychiatric exam: PRESENT: appropriate affect, normal mood Skin exam: PRESENT: jaundice, petechiae, other - diffuse dark purple area of ecchymosis tracking from just under his ribs down his flank and into his thigh; no erythema or heat, mild tender to touch Results Laboratory Results: 03/09/17 14:44 03/09/17 14:44 03/09/17 03/09/17 03/09/17 14:44 14:44 14:50 WBC 8.8 RBC 2.29 L Hgb 9.3 L Hct 27.1 L MCV 119 H MCH 40.6 H MCHC 34.3 RDW 15.7 H Plt Count 40 L Seg Neutrophils % 81.5 H Lymphocytes % 8.1 L Monocytes % 8.5 Eosinophils % 1.3 Basophils % 0.6 Absolute Neutrophils 7.2 Absolute Lymphocytes 0.7 Absolute Monocytes 0.7 Absolute Eosinophils 0.1 Absolute Basophils 0.1 Carbonic Acid 0.90 L HCO3/H2CO3 Ratio 24:1 ABG pH 7.48 H ABG pCO2 29.9 L ABG pO2 125.3 H ABG HCO3 21.6 ABG O2 Saturation 98.7 H ABG Base Excess -1.4 FiO2 100% Sodium 130.8 L Potassium 4.1 Chloride 99 Carbon Dioxide 22 Anion Gap 10 BUN 22 H Creatinine 0.81 Est GFR ( Amer) > 60 Est GFR (Non-Af Amer) > 60 Glucose 180 H Calcium 8.5 Assessment & Plan - Diagnosis (1) Acute hypoxemic respiratory failure Is this a current diagnosis for this admission?: YesPlan: mildly improved but not back to baseline; likely 2/2 pulmonary nodules and underlying lung disease and less likely infectious as originally hoped, abx stopped 03/07. continue supplemental O2 and attempts to maintain euvolemia as his condition will allow. Dr Brush attempted IV lasix and albumin 03/09 with no appreciable effect. (2) Pulmonary nodule Is this a current diagnosis for this admission?: Yes (3) Sepsis Qualifiers: Sepsis type: sepsis due to unspecified organism Qualified Code(s): A41.9 - Sepsis, unspecified organism Is this a current diagnosis for this admission?: Yes (4) Hepatitis C Qualifiers: Viral hepatitis chronicity: chronic Hepatic coma status: without hepatic coma Qualified Code(s): B18.2 - Chronic viral hepatitis C Is this a current diagnosis for this admission?: Yes (5) Macrocytosis Is this a current diagnosis for this admission?: Yes (6) Thrombocytopenia Is this a current diagnosis for this admission?: Yes (7) Cirrhosis of liver Qualifiers: Hepatic cirrhosis type: alcoholic cirrhosis Is this a current diagnosis for this admission?: YesPlan: worse; advanced per Bx complicated by chronic Hep C, with resultant complications of marrow dysfxn, coagulopathy and ascites. (8) Right heart failure Is this a current diagnosis for this admission?: Yes (9) Hypergammaglobulinemia, unspecified Is this a current diagnosis for this admission?: Yes (10) Atrial fibrillation with RVR Is this a current diagnosis for this admission?: Yes (11) Ecchymoses, spontaneous Is this a current diagnosis for this admission?: Yes (12) Full code status Is this a current diagnosis for this admission?: Yes - Time Time Spent with patient: 35 or more minutes Anticipated discharge: Acute Rehab - Plan Summary Plan Summary: consult care coordinators to see what his options are for rehab placement, will be difficult to send him home on such high dose of O2. His prognosis is grim, usp survival very much in doubt and likely measured in months, certainly not years. He is adamantly refusing Hospice or palliative care consult. states [facility] will pay for his daughter to move home and care for him there if nothing else.
[2017-03-10 15:30] LABS: ABSOLUTE BASOPHILS # (AUTO) 0.1 10^3/uL (0.0-0.2); ABSOLUTE EOSINOPHILS # (AUTO) 0.1 10^3/uL (0.0-0.6); ABSOLUTE LYMPHOCYTES (AUTO) 0.8 10^3/uL (0.5-4.7); ABSOLUTE MONOCYTES (AUTO) 0.6 10^3/uL (0.1-1.4); ABSOLUTE NEUT (AUTO) 9.5 10^3/uL (1.7-8.2); BASOPHILS % (AUTO) 0.8 % (0-2); EOSINOPHILS % (AUTO) 0.7 % (0-6); HEMATOCRIT 28.7 % (37.9-51.0); HEMOGLOBIN 9.6 g/dL (13.5-17.0); HGB HCT DIFFERENCE 0.1; LYMPHOCYTES % (AUTO) 7.3 % (13-45); MEAN CORPUSCULAR HEMOGLOBIN 40.1 pg (27.0-33.4); MEAN CORPUSCULAR HGB CONC 33.3 g/dL (32.0-36.0); MEAN CORPUSCULAR VOLUME 120 fl (80-97); MONOCYTES % (AUTO) 5.4 % (3-13); RED BLOOD COUNT 2.38 10^6/uL (4.35-5.55); RED CELL DISTRIBUTION WIDTH 16.4 % (11.5-14.0); SEGMENTED NEUTROPHILS % (AUTO) 85.8 % (42-78); WHITE BLOOD COUNT 11.1 10^3/uL (4.0-10.5)
[2017-03-10 15:50] LABS: ANION GAP 11 (5-19); BLOOD UREA NITROGEN 21 mg/dL (7-20); CALCIUM 8.8 mg/dL (8.4-10.2); CARBON DIOXIDE 20 mmol/L (22-30); CHLORIDE 100 mmol/L (98-107); CREATININE RESULT 0.86 mg/dL (0.52-1.25); GLUCOSE 216 mg/dL (75-110); POTASSIUM 4.5 mmol/L (3.6-5.0); SODIUM 130.6 mmol/L (137-145)
[2017-03-10 16:32] LABS: ANISOCYTOSIS 1+
[2017-03-10 16:34] LABS: POLYCHROMASIA 1+
[2017-03-10 16:37] LABS: HELMET CELLS SLIGHT
[2017-03-10 16:38] LABS: OVALOCYTES SLIGHT; SCHISTOCYTES SLIGHT; TEAR DROP CELLS SLIGHT
--- NOTE | 2017-03-10 18:26 | PDOC PROGRESS REPORT ---
Subjective Progress Note for:: 03/10/17 Subjective:: Remains very weak and bedridden. He has a very poor performance status and was made aware of the severity of cirrhosis on his biopsy but no conclusive cancer. We discussed options with regards to pursuing a biopsy but even if a diagnosis is made his performance status is so poor that we could not consider treatment at least at this time and likely never unless he had a miraculous improvement which is not likely given the state of his liver, nutritional status, etc., Physical Exam Vital Signs: Temp Pulse Resp BP Pulse Ox 98.1 F 89 20 126/61 H 96 03/10/17 15:50 03/10/17 15:50 03/10/17 15:50 03/10/17 15:50 03/10/17 15:50 Intake & Output 03/09/17 03/10/17 03/11/17 06:59 06:59 06:59 Intake Total 1757 1530 Output Total 1000 1575 Balance 757 -45 Weight 98.5 kg 95.9 kg Head exam: PRESENT: atraumatic Eye exam: PRESENT: PERRLA Respiratory exam: PRESENT: prolonged expiratory phas GI/Abdominal exam: PRESENT: ascites, distended, other - ecchymosis on the right flank Neurological exam: PRESENT: alert, oriented to person, oriented to situation, CN II-XII grossly intact Results Laboratory Results: 03/10/17 15:03 03/10/17 15:03 03/10/17 03/10/17 15:03 15:03 WBC 11.1 H RBC 2.38 L Hgb 9.6 L Hct 28.7 L MCV 120 H MCH 40.1 H MCHC 33.3 RDW 16.4 H Plt Count 61 L Seg Neutrophils % 85.8 H Lymphocytes % 7.3 L Monocytes % 5.4 Eosinophils % 0.7 Basophils % 0.8 Absolute Neutrophils 9.5 H Absolute Lymphocytes 0.8 Absolute Monocytes 0.6 Absolute Eosinophils 0.1 Absolute Basophils 0.1 Sodium 130.6 L Potassium 4.5 Chloride 100 Carbon Dioxide 20 L Anion Gap 11 BUN 21 H Creatinine 0.86 Est GFR ( Amer) > 60 Est GFR (Non-Af Amer) > 60 Glucose 216 H Calcium 8.8 Impressions: Venous Doppler Study 03/01/17 00:00 IMPRESSION: NO EVIDENCE DVT OR SVT IN EITHER LEG. Body Scan Nuclear Medicine 03/02/17 00:00 IMPRESSION: No areas of increased uptake worrisome for bony metastatic disease Chest/Abdomen CTA 03/04/17 00:00 IMPRESSION: 1. NORMAL CTA OF THE CHEST. NO PULMONARY EMBOLI. 2. STABLE FINDINGS RELATED TO MALIGNANCY AND METASTATIC INVOLVEMENT WITH NUMEROUS PULMONARY NODULES, MEDIASTINAL AND HILAR ADENOPATHY, LIVER LESIONS, AND ASCITES. SMALL PLEURAL EFFUSIONS. Guidance Needle Placement CT 03/05/17 00:00 IMPRESSION: Please see combined report for performance of procedure and radiologic supervision and interpretation. Paracentesis Ultrasound 03/05/17 00:00 IMPRESSION: SUCCESSFUL CT GUIDED PARACENTESIS. Liver Biopsy CT 03/05/17 07:00 IMPRESSION: CT GUIDED directed LIVER BIOPSY PERFORMED ABOVE. PATHOLOGY PENDING. NO IMMEDIATE COMPLICATIONS. Abdomen/Pelvis CT 03/08/17 00:00 IMPRESSION: Stable. Chest X-Ray 03/09/17 00:00 IMPRESSION: STABLE APPEARANCE WITH MULTIPLE PULMONARY NODULES. NO ACUTE FINDINGS. Assessment & Plan - Diagnosis (1) Cirrhosis of liver Qualifiers: Hepatic cirrhosis type: alcoholic cirrhosis Is this a current diagnosis for this admission?: YesPlan: Advanced on his biopsy with poor prognosis given his cytopenias, nutritional stores, etc. 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 as discussed above. (3) Hepatitis C Qualifiers: Viral hepatitis chronicity: chronic Hepatic coma status: without hepatic coma Qualified Code(s): B18.2 - Chronic viral hepatitis C Is this a current diagnosis for this admission?: Yes (4) Thrombocytopenia Is this a current diagnosis for this admission?: YesPlan: No intervention required at this time - Time Time Spent with patient: 35 or more minutes Critical Time spent with patient: 15-24 minutes
[2017-03-11] MEDS ORDERED: SPIRONOLACTONE 25 MG TABLET PO SCH ×2 (10:00→22:00)
--- NOTE | 2017-03-11 10:27 | PDOC PROGRESS REPORT ---
Subjective Progress Note for:: 03/11/17 Subjective:: reason for visit: f/u liver cirrhosis with ascites, pulmonary nodules, liver masses, hypoxia, afib with rvr hospital course: review of notes so far - 61-year-old male with known history of hepatitis C/cirrhosis, recently increasing abdominal girth, has visible jaundice, telangiectasias, he had CTA of the chest done because of increasing shortness of breath, this indicated diffuse bilateral pulmonary nodules the largest was 1.8 cm, mediastinal adenopathy that was bulky, retroperitoneal adenopathy also bulky. There is some hypodensities in the liver but it was not fully evaluated by the imaging. He denies weight loss but his major complaint has been increasing abdominal girth and shortness of breath. He does have history of heavy drinking in the past but denies heavy drinking over the last few years. He was told about hepatitis C about 2 years ago. Patient describes a 2 week history of progressive shortness of breath, in particular with much of any exertion. This is been particularly noticeable over the last 5 days. He is unable to walk over the last day or so simply because he is too short of breath. There has been no chest pain, fever or chills. Mild dry cough. Has chronic intermittent bilateral lower extremity edema, worse over the past 2 days. Underlying hypertension, but denies previous myocardial infarction, congestive heart failure, pulmonary embolus, or DVT. Was in significant respiratory distress upon presentation, necessitating application of BiPAP, which is since been changed to CPAP. Breathing a bit more comfortably now. Of note, patient is a rambling historian, and seems to have poor insight at best into acute and chronic medical issues. Denies any recent significant weight loss." I followed up with him the morning of admission and he was still requiring BIPAP for increased WOB and hypoxia when off of it. he states he simply " cannot breathe without it right now" and has no prior hx of DAYRON or CPAP needs. he does have hx of COPD "but not yet full blown emphysema" and uses nebulizer machine at home but no home O2. During this last 7 days the patient has improved remarkably with his lower extremity swelling. Developed A. fib with RVR old initially with Cardizem drip. The patient is now on p.o. part Cardizem and doing well. He underwent paracentesis at 1100 mL of fluid taken off. The Cytology of the ascitic fluid was not helpful. He underwent biopsy of the liver and pathology is pending. Yesterday the patient developed oozing of his peritoneal site and a colostomy bag was placed over it. He also developed marked increased swelling in the lower extremities. He states he feels better overall. Denies any chest pain or worsening shortness of breath, but on exam and clinically he is worse. Overnight he has developed ecchymosis of the right flank. He is not receiving heparin products. He has discomfort of this area. I resumed his care Zee and he appears overall better than when I left him a week ago but certainly not well enough to disposition home just yet. He remains very weak, easily winded and unable to care for himself at this juncture. He has undergone 2 attempts at tissue diagnosis for what is believed to be malignancy without achieving confirmation of anything other than severe cirrhosis. Family (son) has arrived and they have unrealistic expectations, anticipating that he will recover enough to not only get the Bx and tissue diagnosis he wants but to also begin treatment/chemo and in spite of my and dr brush's efforts to educate them to risks associated with his poor functional status, challenging blood counts, failing liver, etc. ROS: dyspnea with minimal exertion; c/o sharp stabbing pain in his Rt side along the area of the Bx, constant, worse with certain positions, better with pain meds, no other asc'td symptoms. he denies chest pain, palpitations, N/V/D , melena, hematochezia, all systems reviewed, remaining systems negative. Physical Exam Vital Signs: Temp Pulse Resp BP Pulse Ox 97.3 F 89 21 H 123/60 100 03/11/17 08:02 03/11/17 08:02 03/11/17 08:02 03/11/17 08:02 03/11/17 08:02 Intake & Output 03/10/17 03/11/17 03/12/17 06:59 06:59 06:59 Intake Total 1530 1121 Output Total 1575 200 Balance -45 921 Weight 95.9 kg 97.6 kg General appearance: PRESENT: no acute distress, well-developed Head exam: PRESENT: atraumatic, normocephalic Eye exam: PRESENT: EOMI, scleral icterus. ABSENT: conjunctival injection Mouth exam: PRESENT: dry mucosa, neck supple Teeth exam: PRESENT: poor dentation Neck exam: PRESENT: full ROM. ABSENT: JVD, tracheal deviation Respiratory exam: PRESENT: accessory muscle use, crackles - bases. ABSENT: rhonchi, stridor, wheezes Cardiovascular exam: PRESENT: RRR. ABSENT: tachycardia GI/Abdominal exam: PRESENT: ascites, distended, normal bowel sounds, soft, tenderness - to Rt lateral abdomen over the paracentesis and Bx sites; no longer oozing or leaking fluid Gentrourinary exam: PRESENT: scrotal swelling Extremities exam: PRESENT: +2 edema. ABSENT: calf tenderness, tenderness Musculoskeletal exam: PRESENT: full ROM, other - weak, 4/5 at best in extremities Neurological exam: PRESENT: alert, awake, oriented to person, oriented to place , oriented to time Psychiatric exam: PRESENT: flat affect, normal mood Focused psych exam: ABSENT: psychomotor agitation, restlessness Skin exam: PRESENT: jaundice, petechiae, rash, warm Results Laboratory Results: 03/10/17 15:03 03/10/17 15:03 03/10/17 03/10/17 15:03 15:03 WBC 11.1 H RBC 2.38 L Hgb 9.6 L Hct 28.7 L MCV 120 H MCH 40.1 H MCHC 33.3 RDW 16.4 H Plt Count 61 L Seg Neutrophils % 85.8 H Lymphocytes % 7.3 L Monocytes % 5.4 Eosinophils % 0.7 Basophils % 0.8 Absolute Neutrophils 9.5 H Absolute Lymphocytes 0.8 Absolute Monocytes 0.6 Absolute Eosinophils 0.1 Absolute Basophils 0.1 Sodium 130.6 L Potassium 4.5 Chloride 100 Carbon Dioxide 20 L Anion Gap 11 BUN 21 H Creatinine 0.86 Est GFR ( Amer) > 60 Est GFR (Non-Af Amer) > 60 Glucose 216 H Calcium 8.8 Impressions: Venous Doppler Study 03/01/17 00:00 IMPRESSION: NO EVIDENCE DVT OR SVT IN EITHER LEG. Body Scan Nuclear Medicine 03/02/17 00:00 IMPRESSION: No areas of increased uptake worrisome for bony metastatic disease Chest/Abdomen CTA 03/04/17 00:00 IMPRESSION: 1. NORMAL CTA OF THE CHEST. NO PULMONARY EMBOLI. 2. STABLE FINDINGS RELATED TO MALIGNANCY AND METASTATIC INVOLVEMENT WITH NUMEROUS PULMONARY NODULES, MEDIASTINAL AND HILAR ADENOPATHY, LIVER LESIONS, AND ASCITES. SMALL PLEURAL EFFUSIONS. Guidance Needle Placement CT 03/05/17 00:00 IMPRESSION: Please see combined report for performance of procedure and radiologic supervision and interpretation. Paracentesis Ultrasound 03/05/17 00:00 IMPRESSION: SUCCESSFUL CT GUIDED PARACENTESIS. Liver Biopsy CT 03/05/17 07:00 IMPRESSION: CT GUIDED directed LIVER BIOPSY PERFORMED ABOVE. PATHOLOGY PENDING. NO IMMEDIATE COMPLICATIONS. Abdomen/Pelvis CT 03/08/17 00:00 IMPRESSION: Stable. Chest X-Ray 03/09/17 00:00 IMPRESSION: STABLE APPEARANCE WITH MULTIPLE PULMONARY NODULES. NO ACUTE FINDINGS. Assessment & Plan - Diagnosis (1) Acute hypoxemic respiratory failure Is this a current diagnosis for this admission?: YesPlan: mildly improved but not back to baseline; likely 2/2 pulmonary nodules and underlying lung disease and less likely infectious as originally hoped, abx stopped 03/07. continue supplemental O2 and attempts to maintain euvolemia as his condition will allow. Dr Brush attempted IV lasix and albumin 03/09 with no appreciable effect. (2) Pulmonary nodule Is this a current diagnosis for this admission?: YesPlan: unchanged and very worrisome for neoplastic process but we have been unsuccessful in confirming a tissue diagnosis; it is unlikely he would do well with ct guided lung Bx or bronchoscopy. nevertheless, his clinical condition/ functional status is such that he wouldn't tolerate chemo anyway, per my discussion with dr brush. It would seem he is more appropriate for hospice and palliative care, if not for this then for his advanced liver cirrhosis. he is not open to that discussion with me and still wants to aggressively pursue treatment. I suggested the possibility of transfer to [place] facility for second opinion, he will let me know. (3) Sepsis Qualifiers: Sepsis type: sepsis due to unspecified organism Qualified Code(s): A41.9 - Sepsis, unspecified organism Is this a current diagnosis for this admission?: Yes (4) Hepatitis C Qualifiers: Viral hepatitis chronicity: chronic Hepatic coma status: without hepatic coma Qualified Code(s): B18.2 - Chronic viral hepatitis C Is this a current diagnosis for this admission?: Yes (5) Macrocytosis Is this a current diagnosis for this admission?: Yes (6) Thrombocytopenia Is this a current diagnosis for this admission?: Yes (7) Cirrhosis of liver Qualifiers: Hepatic cirrhosis type: alcoholic cirrhosis Is this a current diagnosis for this admission?: YesPlan: worsening ascites, add aldactone and monitor for effect, may need repeat paracentesis; advanced per Bx complicated by chronic Hep C, with resultant complications of marrow dysfxn, coagulopathy and ascites. (8) Right heart failure Is this a current diagnosis for this admission?: Yes (9) Hypergammaglobulinemia, unspecified Is this a current diagnosis for this admission?: Yes (10) Atrial fibrillation with RVR Is this a current diagnosis for this admission?: Yes (11) Ecchymoses, spontaneous Is this a current diagnosis for this admission?: Yes (12) Full code status Is this a current diagnosis for this admission?: Yes - Time Time Spent with patient: 25-34 minutes
[2017-03-11] MEDS: FOLIC ACID 1 MG TABLET PO SCH (10:30)
[2017-03-11] MEDS: FUROSEMIDE 40 MG TABLET PO SCH ×2 (10:30→17:28)
[2017-03-11] MEDS: MULTIVITAMIN TABLET PO SCH (10:30)
[2017-03-11] MEDS: THIAMINE HCL 100 MG TABLET PO SCH (10:30)
[2017-03-11] MEDS: DILTIAZEM HCL 180 MG CAPSULE.CR PO SCH (10:30)
[2017-03-11] MEDS: OXYCODONE-ACETAMINOPHEN 5-325 MG TABLET PO PRN (10:30)
[2017-03-11] MEDS ORDERED: SPIRONOLACTONE 25 MG TABLET PO ONE (10:45)
[2017-03-11] MEDS ORDERED: ALBUMIN HUMAN 50 ML IV SCH (11:00)
[2017-03-11] MEDS: MORPHINE SULFATE 10 MG/ML INJ IV PRN ×2 (12:56→21:23)
[2017-03-11] MEDS ORDERED: FUROSEMIDE INJ/PF 20 MG/2 ML SDV IV ONE (13:00)
--- NOTE | 2017-03-12 02:27 | PDOC PROGRESS REPORT ---
Subjective Progress Note for:: 03/11/17 Subjective:: His son has talked to him about "not giving up" and going to rehab in order to get stronger for possible biopsy and treatment. He was made aware that given his underlying mutliple comorbid conditions that that may not occur and that he progressively get weaker but then he stated that we would have our answer and so I would agree in arranging for rehab. Physical Exam Vital Signs: Temp Pulse Resp BP Pulse Ox 97.8 F 80 24 H 125/74 93 03/12/17 00:25 03/12/17 00:25 03/12/17 00:25 03/12/17 00:25 03/12/17 00:25 Intake & Output 03/10/17 03/11/17 03/12/17 06:59 06:59 06:59 Intake Total 1530 1121 1306 Output Total 1575 200 225 Balance -45 921 1081 Weight 95.9 kg 97.6 kg General appearance: PRESENT: mild distress Head exam: PRESENT: normocephalic Eye exam: PRESENT: PERRLA, scleral icterus Respiratory exam: PRESENT: prolonged expiratory phas Cardiovascular exam: PRESENT: tachycardia Extremities exam: PRESENT: +2 edema Neurological exam: PRESENT: alert, oriented to person, oriented to place, oriented to situation, CN II-XII grossly intact Psychiatric exam: PRESENT: appropriate affect Results Laboratory Results: 03/10/17 15:03 03/10/17 15:03 Impressions: Venous Doppler Study 03/01/17 00:00 IMPRESSION: NO EVIDENCE DVT OR SVT IN EITHER LEG. Body Scan Nuclear Medicine 03/02/17 00:00 IMPRESSION: No areas of increased uptake worrisome for bony metastatic disease Chest/Abdomen CTA 03/04/17 00:00 IMPRESSION: 1. NORMAL CTA OF THE CHEST. NO PULMONARY EMBOLI. 2. STABLE FINDINGS RELATED TO MALIGNANCY AND METASTATIC INVOLVEMENT WITH NUMEROUS PULMONARY NODULES, MEDIASTINAL AND HILAR ADENOPATHY, LIVER LESIONS, AND ASCITES. SMALL PLEURAL EFFUSIONS. Guidance Needle Placement CT 03/05/17 00:00 IMPRESSION: Please see combined report for performance of procedure and radiologic supervision and interpretation. Paracentesis Ultrasound 03/05/17 00:00 IMPRESSION: SUCCESSFUL CT GUIDED PARACENTESIS. Liver Biopsy CT 03/05/17 07:00 IMPRESSION: CT GUIDED directed LIVER BIOPSY PERFORMED ABOVE. PATHOLOGY PENDING. NO IMMEDIATE COMPLICATIONS. Abdomen/Pelvis CT 03/08/17 00:00 IMPRESSION: Stable. Chest X-Ray 03/09/17 00:00 IMPRESSION: STABLE APPEARANCE WITH MULTIPLE PULMONARY NODULES. NO ACUTE FINDINGS. Assessment & Plan - Diagnosis (1) Cirrhosis of liver Qualifiers: Hepatic cirrhosis type: alcoholic cirrhosis Is this a current diagnosis for this admission?: YesPlan: Advanced with poor protein stores therefore will give a trail again of albumin and Lasix then place on aldactone (2) Pulmonary metastases Qualifiers: Laterality: unspecified laterality Qualified Code(s): C78.00 - Secondary malignant neoplasm of unspecified lung Is this a current diagnosis for this admission?: YesPlan: Reasonable to send to rehab and if no improvement then place on palliative care vs proceeding with a biopsy. (3) Hepatitis C Qualifiers: Viral hepatitis chronicity: chronic Hepatic coma status: without hepatic coma Qualified Code(s): B18.2 - Chronic viral hepatitis C Is this a current diagnosis for this admission?: Yes (4) Thrombocytopenia Is this a current diagnosis for this admission?: Yes - Time Time Spent with patient: 25-34 minutes Critical Time spent with patient: 15-24 minutes Medications reviewed and adjusted accordingly: Yes
[2017-03-12 05:08] LABS: PROTHROMBIN TIME 20.2 SEC (11.4-15.4)
[2017-03-12 05:32] LABS: ALANINE AMINOTRANSFERASE 59 U/L (21-72); ALBUMIN 2.1 g/dL (3.5-5.0); ALKALINE PHOSPHATASE 207 U/L (38-126); ANION GAP 8 (5-19); ASPARTATE AMINO TRANSFERASE 72 U/L (17-59); BILIRUBIN,DIRECT 5.4 mg/dL (0.0-0.4); BILIRUBIN,TOTAL 7.5 mg/dL (0.2-1.3); BLOOD UREA NITROGEN 21 mg/dL (7-20); CALCIUM 8.8 mg/dL (8.4-10.2); CARBON DIOXIDE 22 mmol/L (22-30); CHLORIDE 102 mmol/L (98-107); CREATININE RESULT 0.87 mg/dL (0.52-1.25); GLUCOSE 118 mg/dL (75-110); MAGNESIUM 1.8 mg/dL (1.6-2.3); PHOSPHORUS 5.4 mg/dL (2.5-4.5); POTASSIUM 4.7 mmol/L (3.6-5.0); SODIUM 131.8 mmol/L (137-145); TOTAL PROTEIN 7.6 g/dL (6.3-8.2)
[2017-03-12 06:00] LABS: ABSOLUTE BASOPHILS # (AUTO) 0.1 10^3/uL (0.0-0.2); ABSOLUTE EOSINOPHILS # (AUTO) 0.1 10^3/uL (0.0-0.6); ABSOLUTE LYMPHOCYTES (AUTO) 0.9 10^3/uL (0.5-4.7); ABSOLUTE MONOCYTES (AUTO) 0.7 10^3/uL (0.1-1.4); BASOPHILS % (AUTO) 0.6 % (0-2); EOSINOPHILS % (AUTO) 1.3 % (0-6); HEMATOCRIT 25.7 % (37.9-51.0); HEMOGLOBIN 8.7 g/dL (13.5-17.0); HGB HCT DIFFERENCE 0.4; LYMPHOCYTES % (AUTO) 8.1 % (13-45); MEAN CORPUSCULAR HEMOGLOBIN 40.3 pg (27.0-33.4); MEAN CORPUSCULAR HGB CONC 34.1 g/dL (32.0-36.0); MEAN CORPUSCULAR VOLUME 118 fl (80-97); MONOCYTES % (AUTO) 6.6 % (3-13); RED BLOOD COUNT 2.17 10^6/uL (4.35-5.55); RED CELL DISTRIBUTION WIDTH 15.9 % (11.5-14.0); SEGMENTED NEUTROPHILS % (AUTO) 83.4 % (42-78); WHITE BLOOD COUNT 10.8 10^3/uL (4.0-10.5)
[2017-03-12 06:01] LABS: ANISOCYTOSIS SLIGHT; OVALOCYTES SLIGHT; POLYCHROMASIA SLIGHT; ROULEAUX SLIGHT; SCHISTOCYTES SLIGHT; TEAR DROP CELLS SLIGHT; TOXIC GRANULATION SLIGHT
[2017-03-12] MEDS: MORPHINE SULFATE 10 MG/ML INJ IV PRN ×4 (07:24→23:27)
--- NOTE | 2017-03-12 10:55 | PDOC PROGRESS REPORT ---
Subjective Progress Note for:: 03/12/17 Subjective:: reason for visit: f/u liver cirrhosis with ascites, pulmonary nodules, liver masses, hypoxia, afib with rvr hospital course: review of notes so far - 61-year-old male with known history of hepatitis C/cirrhosis, recently increasing abdominal girth, has visible jaundice, telangiectasias, he had CTA of the chest done because of increasing shortness of breath, this indicated diffuse bilateral pulmonary nodules the largest was 1.8 cm, mediastinal adenopathy that was bulky, retroperitoneal adenopathy also bulky. There is some hypodensities in the liver but it was not fully evaluated by the imaging. He denies weight loss but his major complaint has been increasing abdominal girth and shortness of breath. He does have history of heavy drinking in the past but denies heavy drinking over the last few years. He was told about hepatitis C about 2 years ago. Patient describes a 2 week history of progressive shortness of breath, in particular with much of any exertion. This is been particularly noticeable over the last 5 days. He is unable to walk over the last day or so simply because he is too short of breath. There has been no chest pain, fever or chills. Mild dry cough. Has chronic intermittent bilateral lower extremity edema, worse over the past 2 days. Underlying hypertension, but denies previous myocardial infarction, congestive heart failure, pulmonary embolus, or DVT. Was in significant respiratory distress upon presentation, necessitating application of BiPAP, which is since been changed to CPAP. Breathing a bit more comfortably now. Of note, patient is a rambling historian, and seems to have poor insight at best into acute and chronic medical issues. Denies any recent significant weight loss." I followed up with him the morning of admission and he was still requiring BIPAP for increased WOB and hypoxia when off of it. he states he simply " cannot breathe without it right now" and has no prior hx of DAYRON or CPAP needs. he does have hx of COPD "but not yet full blown emphysema" and uses nebulizer machine at home but no home O2. During this last 7 days the patient has improved remarkably with his lower extremity swelling. Developed A. fib with RVR old initially with Cardizem drip. The patient is now on p.o. part Cardizem and doing well. He underwent paracentesis at 1100 mL of fluid taken off. The Cytology of the ascitic fluid was not helpful. He underwent biopsy of the liver and pathology is pending. Yesterday the patient developed oozing of his peritoneal site and a colostomy bag was placed over it. He also developed marked increased swelling in the lower extremities. He states he feels better overall. Denies any chest pain or worsening shortness of breath, but on exam and clinically he is worse. Overnight he has developed ecchymosis of the right flank. He is not receiving heparin products. He has discomfort of this area. I resumed his care Zee and he appears overall better than when I left him a week ago but certainly not well enough to disposition home just yet. He remains very weak, easily winded and unable to care for himself at this juncture. He has undergone 2 attempts at tissue diagnosis for what is believed to be malignancy without achieving confirmation of anything other than severe cirrhosis. Family (son) has arrived and they have unrealistic expectations, anticipating that he will recover enough to not only get the Bx and tissue diagnosis he wants but to also begin treatment/chemo and in spite of my and dr brush's efforts to educate them to risks associated with his poor functional status, challenging blood counts, failing liver, etc. ROS: persistent dyspnea with minimal exertion, worsening sharp stabbing pain in his Rt side along the area of the Bx, constant, worse with certain positions , better with pain meds, worsening abdominal distension and no other asc'td symptoms. he denies chest pain, palpitations, N/V/D, melena, hematochezia, all systems reviewed, remaining systems negative. Physical Exam Vital Signs: Temp Pulse Resp BP Pulse Ox 97.7 F 87 23 H 111/54 L 92 03/12/17 07:42 03/12/17 07:42 03/12/17 07:42 03/12/17 07:42 03/12/17 07:42 Intake & Output 03/11/17 03/12/17 03/13/17 06:59 06:59 06:59 Intake Total 1121 1680 Output Total 200 1000 Balance 921 680 Weight 97.6 kg 96.1 kg General appearance: PRESENT: mild distress - resp, well-developed Head exam: PRESENT: atraumatic, normocephalic Eye exam: PRESENT: scleral icterus. ABSENT: conjunctival injection Mouth exam: PRESENT: dry mucosa, neck supple Teeth exam: PRESENT: poor dentation Neck exam: PRESENT: full ROM. ABSENT: tracheal deviation Respiratory exam: PRESENT: accessory muscle use, crackles, tachypnea. ABSENT: rhonchi, wheezes Cardiovascular exam: PRESENT: RRR. ABSENT: tachycardia Pulses: PRESENT: normal radial pulses Vascular exam: PRESENT: normal capillary refill GI/Abdominal exam: PRESENT: ascites - shifting dullness and fluid wave evident, distended, normal bowel sounds, tenderness - RT side. ABSENT: guarding, rigid Extremities exam: PRESENT: +2 edema - worse. ABSENT: calf tenderness, tenderness Musculoskeletal exam: ABSENT: full ROM - very weak and getting weaker, at best 3 /5 today Neurological exam: PRESENT: awake, oriented to person, oriented to place, oriented to time, oriented to situation. ABSENT: alert - lethargic Psychiatric exam: PRESENT: appropriate affect, normal mood Focused psych exam: ABSENT: psychomotor agitation Skin exam: PRESENT: dry. ABSENT: warm - cool Results Laboratory Results: 03/12/17 04:37 03/12/17 04:37 03/12/17 03/12/17 04:37 04:37 WBC 10.8 H RBC 2.17 L Hgb 8.7 L Hct 25.7 L MCV 118 H MCH 40.3 H MCHC 34.1 RDW 15.9 H Plt Count 48 L Seg Neutrophils % 83.4 H Lymphocytes % 8.1 L Monocytes % 6.6 Eosinophils % 1.3 Basophils % 0.6 Absolute Neutrophils 9.0 H Absolute Lymphocytes 0.9 Absolute Monocytes 0.7 Absolute Eosinophils 0.1 Absolute Basophils 0.1 Sodium 131.8 L Potassium 4.7 Chloride 102 Carbon Dioxide 22 Anion Gap 8 BUN 21 H Creatinine 0.87 Est GFR ( Amer) > 60 Est GFR (Non-Af Amer) > 60 Glucose 118 H Calcium 8.8 Phosphorus 5.4 H Magnesium 1.8 Total Bilirubin 7.5 H AST 72 H ALT 59 Alkaline Phosphatase 207 H Total Protein 7.6 Albumin 2.1 L Assessment & Plan - Diagnosis (1) Cirrhosis of liver Qualifiers: Hepatic cirrhosis type: alcoholic cirrhosis Is this a current diagnosis for this admission?: YesPlan: worsening ascites, added aldactone with little effect; ck u/s ascites survey, may need repeat paracentesis; advanced cirrhosis per Bx complicated by chronic Hep C, with resultant complications of marrow dysfxn, coagulopathy and ascites. (2) Acute hypoxemic respiratory failure Is this a current diagnosis for this admission?: YesPlan: unchanged and not progressing; likely 2/2 pulmonary nodules and underlying lung disease and less likely infectious as originally hoped, abx stopped 03/07. continue supplemental O2 and attempts to maintain euvolemia as his condition will allow. Dr Brush will attempt another round of IV lasix and albumin (3) Right heart failure Is this a current diagnosis for this admission?: YesPlan: worse; elevated BNP and severe lymphedema of legs; increase aldactone, titrate lasix as his condition will allow. (4) Ecchymoses, spontaneous Is this a current diagnosis for this admission?: YesPlan: stable but extensive and there is pain associated with the fluid collection, no sign of infection as yet but at risk for same. likely spontaneous hemorrhage under the skin after Bx; no signs of active hemorrhage at this time. (5) Pulmonary nodule Is this a current diagnosis for this admission?: Yes (6) Sepsis Qualifiers: Sepsis type: sepsis due to unspecified organism Qualified Code(s): A41.9 - Sepsis, unspecified organism Is this a current diagnosis for this admission?: Yes (7) Hepatitis C Qualifiers: Viral hepatitis chronicity: chronic Hepatic coma status: without hepatic coma Qualified Code(s): B18.2 - Chronic viral hepatitis C Is this a current diagnosis for this admission?: Yes (8) Macrocytosis Is this a current diagnosis for this admission?: Yes (9) Thrombocytopenia Is this a current diagnosis for this admission?: Yes (10) Hypergammaglobulinemia, unspecified Is this a current diagnosis for this admission?: Yes (11) Atrial fibrillation with RVR Is this a current diagnosis for this admission?: Yes (12) Full code status Is this a current diagnosis for this admission?: Yes - Time Time Spent with patient: 35 or more minutes Medications reviewed and adjusted accordingly: Yes - Plan Summary Plan Summary: prognosis is grim, his condition is slowly deteriorating; he is unaccepting of this fact and continues to wish for recovery and treatment and aggressive therapy, honestly I feel like this is futile care, his fate is sealed and his time is limited.
[2017-03-12] MEDS: DILTIAZEM HCL 180 MG CAPSULE.CR PO SCH (11:24)
[2017-03-12] MEDS: MULTIVITAMIN TABLET PO SCH (11:25)
[2017-03-12] MEDS: FUROSEMIDE 40 MG TABLET PO SCH ×2 (11:25→18:09)
[2017-03-12] MEDS: FOLIC ACID 1 MG TABLET PO SCH (11:25)
[2017-03-12] MEDS: THIAMINE HCL 100 MG TABLET PO SCH (11:25)
[2017-03-12] MEDS: SPIRONOLACTONE 25 MG TABLET PO SCH ×2 (11:25→21:59)
--- NOTE | 2017-03-12 12:23 | RADIOLOGY REPORT (SQ) ---
EXAM DESCRIPTION: U/S ABDOMEN LIMITED W/O DOP COMPLETED DATE/TIME: 03/12/2017 11:53 am REASON FOR STUDY: ascites survey; may need paracentesis COMPARISON: CT abdomen pelvis 03/09/2017, 03/01/[address] liver biopsy 03/05/2017 Ultrasound-guided paracentesis 03/05/2017 TECHNIQUE: Dynamic and static grayscale images acquired of the abdomen and recorded on PACS. Additio nal selected color Doppler and spectral images recorded. LIMITATIONS: None. FINDINGS: Limited 4 quadrant abdominal ultrasound was performed to quantify ascites. There is a mod erate amount of ascites in the right and left lower quadrant. Findings were discussed with Dr. Arleen allen. IMPRESSION: Moderate ascites. TECHNICAL DOCUMENTATION: JOB ID: [id number] [employer]- All Rights Reserved
[2017-03-12 15:25] LABS: FLUID APPEARANCE CLOUDY; FLUID RBC DILUENT USED SALINE; FLUID RBC DILUTION FACTOR 51; FLUID RBC SIDE 1 580; FLUID RBC SIDE 2 600; FLUID TYPE PERITONEAL; TOTAL RBC SQUARES COUNTED FLD 25
--- NOTE | 2017-03-12 15:57 | RADIOLOGY REPORT (SQ) ---
EXAM DESCRIPTION: U/S ABD PARACENTESIS COMPLETED DATE/TIME: 03/12/2017 2:31 pm REASON FOR STUDY: diagnostic and therapeutic, send fluid for studies COMPARISON CT abdomen pelvis 03/01/2017, 03/09/2017 CT-guided liver biopsy 03/05/2017 Paracentesis 03/05/2017 LIMITATIONS: None. PROCEDURE: After obtaining informed consent, the patient was brought to the ultrasound suite. The p rocedure was performed with the patient on a gurney. Ultrasound was used to identify a prominent poc ket of ascites in the left lower quadrant. An appropriate access site was selected. The patient was prepped and draped in usual sterile fashion. The access site was anesthetized with 4.5 mL 1% lidoc keena. A Oisz-[id number]-Hkufcduo needle was advanced into the fluid. After aspiration of fluid the needle, t he catheter was advanced off the needle into the fluid. A total of 3,300 mL of serosanguineous fluid was removed. The patient tolerated the procedure well left the department in satisfactory condition. Fluid was sent for testing as per Dr. Corona. IMPRESSION: Successful ultrasound-guided diagnostic and therapeutic paracentesis COMMENT: Patient medication list reviewed: Yes- Quality ID# [id number]:Eligible professional attests to doc umenting in the medical record they obtained, updated, or reviewed the patient's current medications. Quality ID #[id number]: The patient was prepped and draped using maximum sterile barrier technique including cap, mask, sterile gown, sterile gloves, a large sterile sheet, hand hygiene, and 2% Chlorhexidine fo r cutaneous antisepsis. When ultrasound is used, sterile ultrasound techniques are followed requiring sterile gel and sterile probes. Quality ID #[id number]: Final reports for procedures using fluoroscopy that document radiation exposure shani jay, or exposure time and number of fluorographic images (if radiation exposure indices are not avail able) TECHNICAL DOCUMENTATION: JOB ID: [id number]- All Rights Reserved
[2017-03-13] MEDS: MORPHINE SULFATE 10 MG/ML INJ IV PRN ×3 (04:23→19:20)
[2017-03-13] MEDS: SPIRONOLACTONE 25 MG TABLET PO SCH ×2 (09:00→21:01)
[2017-03-13] MEDS: FUROSEMIDE 40 MG TABLET PO SCH ×2 (09:00→18:42)
[2017-03-13] MEDS: FOLIC ACID 1 MG TABLET PO SCH (09:00)
[2017-03-13] MEDS: MULTIVITAMIN TABLET PO SCH (09:00)
[2017-03-13] MEDS: DILTIAZEM HCL 180 MG CAPSULE.CR PO SCH (09:00)
[2017-03-13] MEDS: THIAMINE HCL 100 MG TABLET PO SCH (09:01)
--- NOTE | 2017-03-13 09:54 | PDOC PROGRESS REPORT ---
Subjective Progress Note for:: 03/13/17 Subjective:: reason for visit: f/u liver cirrhosis with ascites, pulmonary nodules, liver masses, hypoxia, afib with rvr hospital course: review of notes so far - 61-year-old male with known history of hepatitis C/cirrhosis, recently increasing abdominal girth, has visible jaundice, telangiectasias, he had CTA of the chest done because of increasing shortness of breath, this indicated diffuse bilateral pulmonary nodules the largest was 1.8 cm, mediastinal adenopathy that was bulky, retroperitoneal adenopathy also bulky. There is some hypodensities in the liver but it was not fully evaluated by the imaging. He denies weight loss but his major complaint has been increasing abdominal girth and shortness of breath. He does have history of heavy drinking in the past but denies heavy drinking over the last few years. He was told about hepatitis C about 2 years ago. Patient describes a 2 week history of progressive shortness of breath, in particular with much of any exertion. This is been particularly noticeable over the last 5 days. He is unable to walk over the last day or so simply because he is too short of breath. There has been no chest pain, fever or chills. Mild dry cough. Has chronic intermittent bilateral lower extremity edema, worse over the past 2 days. Underlying hypertension, but denies previous myocardial infarction, congestive heart failure, pulmonary embolus, or DVT. Was in significant respiratory distress upon presentation, necessitating application of BiPAP, which is since been changed to CPAP. Breathing a bit more comfortably now. Of note, patient is a rambling historian, and seems to have poor insight at best into acute and chronic medical issues. Denies any recent significant weight loss." I followed up with him the morning of admission and he was still requiring BIPAP for increased WOB and hypoxia when off of it. he states he simply " cannot breathe without it right now" and has no prior hx of DAYRON or CPAP needs. he does have hx of COPD "but not yet full blown emphysema" and uses nebulizer machine at home but no home O2. During this last 7 days the patient has improved remarkably with his lower extremity swelling. Developed A. fib with RVR old initially with Cardizem drip. The patient is now on p.o. part Cardizem and doing well. He underwent paracentesis at 1100 mL of fluid taken off. The Cytology of the ascitic fluid was not helpful. He underwent biopsy of the liver and pathology is pending. Yesterday the patient developed oozing of his peritoneal site and a colostomy bag was placed over it. He also developed marked increased swelling in the lower extremities. He states he feels better overall. Denies any chest pain or worsening shortness of breath, but on exam and clinically he is worse. Overnight he has developed ecchymosis of the right flank. He is not receiving heparin products. He has discomfort of this area. I resumed his care Zee and he appears overall better than when I left him a week ago but certainly not well enough to disposition home just yet. He remains very weak, easily winded and unable to care for himself at this juncture. He has undergone 2 attempts at tissue diagnosis for what is believed to be malignancy without achieving confirmation of anything other than severe cirrhosis. Family (son) has arrived and they have unrealistic expectations, anticipating that he will recover enough to not only get the Bx and tissue diagnosis he wants but to also begin treatment/chemo and in spite of my and dr marte's efforts to educate them to risks associated with his poor functional status, challenging blood counts, failing liver, etc. Anushka, his daughter in [place], seems more understanding and accepting of her father's fate but isn' t willing to move to comfort measures as yet. He underwent his 3rd paracentesis yesterday removing >3L of serosanguinous fluid that studies show to be bloody with elevated wbcs worrisome for SBP, Gm stain is pending. empiric cefepime started 03/13 ROS: He is slower to respond this morning, easily confused and only slowly reorients, doesn't appear as well today. persistent dyspnea with minimal exertion, improved sharp stabbing pain in his Rt side along the area of the Bx and paracentesis sites. he denies chest pain, palpitations, N/V/D, melena, hematochezia, all systems reviewed, remaining systems negative. Physical Exam Vital Signs: Temp Pulse Resp BP Pulse Ox 97.9 F 88 24 H 109/56 L 97 03/13/17 07:21 03/13/17 07:21 03/13/17 07:21 03/13/17 07:21 03/13/17 07:21 Intake & Output 03/12/17 03/13/17 03/14/17 06:59 06:59 06:59 Intake Total 1680 1503 Output Total 1000 1300 Balance 680 203 Weight 96.1 kg 92.2 kg General appearance: PRESENT: mild distress - resp, well-developed, confused but reorients slowly Head exam: PRESENT: atraumatic, normocephalic Eye exam: PRESENT: scleral icterus. ABSENT: conjunctival injection Mouth exam: PRESENT: dry mucosa, neck supple Teeth exam: PRESENT: poor dentation Neck exam: PRESENT: full ROM. ABSENT: tracheal deviation Respiratory exam: PRESENT: accessory muscle use, crackles, tachypnea. ABSENT: rhonchi, wheezes Cardiovascular exam: PRESENT: RRR. ABSENT: tachycardia Pulses: PRESENT: normal radial pulses Vascular exam: PRESENT: normal capillary refill GI/Abdominal exam: PRESENT: ascites - shifting dullness and fluid wave still evident, still distended, normal bowel sounds, diffuse tenderness ABSENT: guarding, rigid Extremities exam: PRESENT: +3 edema - worse. ABSENT: calf tenderness, tenderness Musculoskeletal exam: ABSENT: full ROM - very weak and getting weaker, remains 3 /5 today Neurological exam: PRESENT: awake, oriented to person, oriented to place, oriented to time, lethargic Psychiatric exam: PRESENT: appropriate affect, normal mood Focused psych exam: ABSENT: psychomotor agitation Skin exam: PRESENT: dry. ABSENT: warm - cool Results Laboratory Results: 03/12/17 04:37 03/12/17 04:37 03/12/17 13:55 Fluid Type PERITONEAL Fluid Source Fluid Color RED Fluid Appearance CLOUDY Fluid Viscosity LIQUID Fluid WBC 837 Fluid RBC [id number] Impressions: Abdomen Ultrasound 03/12/17 00:00 IMPRESSION: Moderate ascites. Paracentesis Ultrasound 03/12/17 12:15 IMPRESSION: Successful ultrasound-guided diagnostic and therapeutic paracentesis Assessment & Plan - Diagnosis (1) SBP (spontaneous bacterial peritonitis) Is this a current diagnosis for this admission?: YesPlan: empiric cefepime and monitor for response (2) Cirrhosis of liver Qualifiers: Hepatic cirrhosis type: alcoholic cirrhosis Is this a current diagnosis for this admission?: YesPlan: worse; rapidly recurring ascites in spite of Rx management and now 3 paracenteses advanced cirrhosis per Bx complicated by chronic Hep C, with resultant complications of marrow dysfxn, coagulopathy and ascites. (3) Acute hypoxemic respiratory failure Is this a current diagnosis for this admission?: Yes (4) Right heart failure Is this a current diagnosis for this admission?: Yes (5) Ecchymoses, spontaneous Is this a current diagnosis for this admission?: Yes (6) Pulmonary nodule Is this a current diagnosis for this admission?: Yes (7) Sepsis Qualifiers: Sepsis type: sepsis due to unspecified organism Qualified Code(s): A41.9 - Sepsis, unspecified organism Is this a current diagnosis for this admission?: Yes (8) Hepatitis C Qualifiers: Viral hepatitis chronicity: chronic Hepatic coma status: without hepatic coma Qualified Code(s): B18.2 - Chronic viral hepatitis C Is this a current diagnosis for this admission?: Yes (9) Macrocytosis Is this a current diagnosis for this admission?: Yes (10) Thrombocytopenia Is this a current diagnosis for this admission?: Yes (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, unspecified Is this a current diagnosis for this admission?: Yes (12) Atrial fibrillation with RVR Is this a current diagnosis for this admission?: Yes (13) Full code status Is this a current diagnosis for this admission?: Yes - Time Time Spent with patient: 25-34 minutes Medications reviewed and adjusted accordingly: Yes - Plan Summary Plan Summary: prognosis is grim, his condition is slowly deteriorating; he is unaccepting of this fact and continues to wish for recovery and treatment and aggressive therapy, honestly I feel like this is futile care, his fate is sealed and his time is limited.
[2017-03-13] MEDS: CEFEPIME 2 GM/D5W RTU 50 ML IV SCH ×2 (10:18→21:01)
[2017-03-14] MEDS: MORPHINE SULFATE 10 MG/ML INJ IV PRN ×3 (05:30→21:55)
[2017-03-14 05:48] LABS: PROTHROMBIN TIME 20.5 SEC (11.4-15.4)
[2017-03-14 05:55] LABS: ALANINE AMINOTRANSFERASE 59 U/L (21-72); ALBUMIN 2.2 g/dL (3.5-5.0); ALKALINE PHOSPHATASE 204 U/L (38-126); ANION GAP 11 (5-19); ASPARTATE AMINO TRANSFERASE 83 U/L (17-59); BILIRUBIN,DIRECT 5.9 mg/dL (0.0-0.4); BLOOD UREA NITROGEN 26 mg/dL (7-20); CARBON DIOXIDE 20 mmol/L (22-30); CHLORIDE 101 mmol/L (98-107); CREATININE RESULT 0.96 mg/dL (0.52-1.25); GLUCOSE 172 mg/dL (75-110); MAGNESIUM 1.8 mg/dL (1.6-2.3); POTASSIUM 4.3 mmol/L (3.6-5.0); SODIUM 131.7 mmol/L (137-145); TOTAL PROTEIN 8.1 g/dL (6.3-8.2)
[2017-03-14 05:56] LABS: ABSOLUTE BASOPHILS # (AUTO) 0.1 10^3/uL (0.0-0.2); ABSOLUTE EOSINOPHILS # (AUTO) 0.1 10^3/uL (0.0-0.6); ABSOLUTE LYMPHOCYTES (AUTO) 0.8 10^3/uL (0.5-4.7); ABSOLUTE MONOCYTES (AUTO) 0.6 10^3/uL (0.1-1.4); ABSOLUTE NEUT (AUTO) 9.2 10^3/uL (1.7-8.2); BASOPHILS % (AUTO) 0.5 % (0-2); EOSINOPHILS % (AUTO) 1.1 % (0-6); HEMATOCRIT 25.9 % (37.9-51.0); HEMOGLOBIN 8.7 g/dL (13.5-17.0); HGB HCT DIFFERENCE 0.2; LYMPHOCYTES % (AUTO) 7.4 % (13-45); MEAN CORPUSCULAR HEMOGLOBIN 40.2 pg (27.0-33.4); MEAN CORPUSCULAR HGB CONC 33.8 g/dL (32.0-36.0); MEAN CORPUSCULAR VOLUME 119 fl (80-97); MONOCYTES % (AUTO) 5.6 % (3-13); RED BLOOD COUNT 2.17 10^6/uL (4.35-5.55); RED CELL DISTRIBUTION WIDTH 15.1 % (11.5-14.0); SEGMENTED NEUTROPHILS % (AUTO) 85.4 % (42-78); WHITE BLOOD COUNT 10.8 10^3/uL (4.0-10.5)
[2017-03-14 06:23] LABS: ANISOCYTOSIS SLIGHT; POLYCHROMASIA SLIGHT; TOXIC GRANULATION SLIGHT
[2017-03-14 06:24] LABS: TARGET CELLS SLIGHT
[2017-03-14 06:25] LABS: ROULEAUX SLIGHT; TEAR DROP CELLS SLIGHT
[2017-03-14 06:26] LABS: HELMET CELLS SLIGHT
[2017-03-14] MEDS: FUROSEMIDE 40 MG TABLET PO SCH ×2 (09:45→18:07)
[2017-03-14] MEDS: FOLIC ACID 1 MG TABLET PO SCH (09:45)
[2017-03-14] MEDS: MULTIVITAMIN TABLET PO SCH (09:45)
[2017-03-14] MEDS: DILTIAZEM HCL 180 MG CAPSULE.CR PO SCH (09:45)
[2017-03-14] MEDS: THIAMINE HCL 100 MG TABLET PO SCH (09:45)
[2017-03-14] MEDS: SPIRONOLACTONE 25 MG TABLET PO SCH ×2 (09:45→21:55)
[2017-03-14] MEDS: CEFEPIME 2 GM/D5W RTU 50 ML IV SCH ×2 (09:46→21:54)
--- NOTE | 2017-03-14 10:50 | PDOC PROGRESS REPORT ---
Subjective Progress Note for:: 03/14/17 Subjective:: reason for visit: f/u liver cirrhosis with ascites, pulmonary nodules, liver masses, hypoxia, afib with rvr hospital course: review of notes so far - 61-year-old male with known history of hepatitis C/cirrhosis, recently increasing abdominal girth, has visible jaundice, telangiectasias, he had CTA of the chest done because of increasing shortness of breath, this indicated diffuse bilateral pulmonary nodules the largest was 1.8 cm, mediastinal adenopathy that was bulky, retroperitoneal adenopathy also bulky. There is some hypodensities in the liver but it was not fully evaluated by the imaging. He denies weight loss but his major complaint has been increasing abdominal girth and shortness of breath. He does have history of heavy drinking in the past but denies heavy drinking over the last few years. He was told about hepatitis C about 2 years ago. Patient describes a 2 week history of progressive shortness of breath, in particular with much of any exertion. This is been particularly noticeable over the last 5 days. He is unable to walk over the last day or so simply because he is too short of breath. There has been no chest pain, fever or chills. Mild dry cough. Has chronic intermittent bilateral lower extremity edema, worse over the past 2 days. Underlying hypertension, but denies previous myocardial infarction, congestive heart failure, pulmonary embolus, or DVT. Was in significant respiratory distress upon presentation, necessitating application of BiPAP, which is since been changed to CPAP. Breathing a bit more comfortably now. Of note, patient is a rambling historian, and seems to have poor insight at best into acute and chronic medical issues. Denies any recent significant weight loss." I followed up with him the morning of admission and he was still requiring BIPAP for increased WOB and hypoxia when off of it. he states he simply " cannot breathe without it right now" and has no prior hx of DAYRON or CPAP needs. he does have hx of COPD "but not yet full blown emphysema" and uses nebulizer machine at home but no home O2. During this last 7 days the patient has improved remarkably with his lower extremity swelling. Developed A. fib with RVR old initially with Cardizem drip. The patient is now on p.o. part Cardizem and doing well. He underwent paracentesis at 1100 mL of fluid taken off. The Cytology of the ascitic fluid was not helpful. He underwent biopsy of the liver and pathology is pending. Yesterday the patient developed oozing of his peritoneal site and a colostomy bag was placed over it. He also developed marked increased swelling in the lower extremities. He states he feels better overall. Denies any chest pain or worsening shortness of breath, but on exam and clinically he is worse. Overnight he has developed ecchymosis of the right flank. He is not receiving heparin products. He has discomfort of this area. I resumed his care Wednesday and he appears overall better than when I left him a week ago but certainly not well enough to disposition home just yet. He remains very weak, easily winded and unable to care for himself at this juncture. He has undergone 2 attempts at tissue diagnosis for what is believed to be malignancy without achieving confirmation of anything other than severe cirrhosis. Family (son) has arrived and they have unrealistic expectations, anticipating that he will recover enough to not only get the Bx and tissue diagnosis he wants but to also begin treatment/chemo and in spite of my and dr marte's efforts to educate them to risks associated with his poor functional status, challenging blood counts, failing liver, etc. Anushka, his daughter in [place], seems more understanding and accepting of her father's fate but isn' t willing to move to comfort measures as yet. He underwent his 3rd paracentesis 03/12 removing >3L of serosanguinous fluid that studies show to be bloody with elevated wbcs worrisome for SBP, Gm stain is pending. empiric cefepime started 03/13. cultures and Gm stain show no pathogen. becoming more jaundiced. liver seems to be actively failing. ROS: He is a bit more responsive and appropriate again this morning. persistent dyspnea with minimal exertion, improved sharp stabbing pain in his Rt side along the area of the Bx and paracentesis sites. he denies chest pain, palpitations, N/V/D, melena, hematochezia, all systems reviewed, remaining systems negative. Physical Exam Vital Signs: Temp Pulse Resp BP Pulse Ox 97.5 F 77 20 102/55 L 99 03/14/17 07:28 03/14/17 07:28 03/14/17 07:28 03/14/17 07:28 03/14/17 07:28 Intake & Output 03/13/17 03/14/17 03/15/17 06:59 06:59 06:59 Intake Total 1503 2050 Output Total 1300 1325 Balance 203 725 Weight 92.2 kg 81 kg General appearance: PRESENT: no distress Head exam: PRESENT: atraumatic, normocephalic Eye exam: PRESENT: scleral icterus. ABSENT: conjunctival injection Mouth exam: PRESENT: dry mucosa, neck supple Teeth exam: PRESENT: poor dentation Neck exam: PRESENT: full ROM. ABSENT: tracheal deviation Respiratory exam: PRESENT: accessory muscle use, crackles, tachypnea. ABSENT: rhonchi, wheezes Cardiovascular exam: PRESENT: RRR. ABSENT: tachycardia Pulses: PRESENT: normal radial pulses Vascular exam: PRESENT: normal capillary refill GI/Abdominal exam: PRESENT: ascites - shifting dullness and fluid wave still evident and worsening, still distended, normal bowel sounds, diffuse tenderness ABSENT: guarding, rigid Extremities exam: PRESENT: +3 edema - worse. ABSENT: calf tenderness, tenderness Musculoskeletal exam: ABSENT: full ROM - very weak and getting weaker, remains 3 /5 today Neurological exam: PRESENT: awake, oriented to person, oriented to place, oriented to time, Psychiatric exam: PRESENT: appropriate affect, normal mood Focused psych exam: ABSENT: psychomotor agitation Skin exam: PRESENT: moist, cool and jaundiced Results Laboratory Results: 03/14/17 05:29 03/14/17 05:29 03/14/17 03/14/17 03/14/17 05:29 05:29 05:29 WBC 10.8 H RBC 2.17 L Hgb 8.7 L Hct 25.9 L MCV 119 H MCH 40.2 H MCHC 33.8 RDW 15.1 H Plt Count 39 L Seg Neutrophils % 85.4 H Lymphocytes % 7.4 L Monocytes % 5.6 Eosinophils % 1.1 Basophils % 0.5 Absolute Neutrophils 9.2 H Absolute Lymphocytes 0.8 Absolute Monocytes 0.6 Absolute Eosinophils 0.1 Absolute Basophils 0.1 Sodium 131.7 L Potassium 4.3 Chloride 101 Carbon Dioxide 20 L Anion Gap 11 BUN 26 H Creatinine 0.96 Est GFR ( Amer) > 60 Est GFR (Non-Af Amer) > 60 Glucose 172 H Calcium 9.0 Magnesium 1.8 Total Bilirubin 8.0 H AST 83 H ALT 59 Alkaline Phosphatase 204 H Ammonia 11.5 Total Protein 8.1 Albumin 2.2 L Impressions: Venous Doppler Study 03/01/17 00:00 IMPRESSION: NO EVIDENCE DVT OR SVT IN EITHER LEG. Body Scan Nuclear Medicine 03/02/17 00:00 IMPRESSION: No areas of increased uptake worrisome for bony metastatic disease Chest/Abdomen CTA 03/04/17 00:00 IMPRESSION: 1. NORMAL CTA OF THE CHEST. NO PULMONARY EMBOLI. 2. STABLE FINDINGS RELATED TO MALIGNANCY AND METASTATIC INVOLVEMENT WITH NUMEROUS PULMONARY NODULES, MEDIASTINAL AND HILAR ADENOPATHY, LIVER LESIONS, AND ASCITES. SMALL PLEURAL EFFUSIONS. Guidance Needle Placement CT 03/05/17 00:00 IMPRESSION: Please see combined report for performance of procedure and radiologic supervision and interpretation. Liver Biopsy CT 03/05/17 07:00 IMPRESSION: CT GUIDED directed LIVER BIOPSY PERFORMED ABOVE. PATHOLOGY PENDING. NO IMMEDIATE COMPLICATIONS. Abdomen/Pelvis CT 03/08/17 00:00 IMPRESSION: Stable. Chest X-Ray 03/09/17 00:00 IMPRESSION: STABLE APPEARANCE WITH MULTIPLE PULMONARY NODULES. NO ACUTE FINDINGS. Abdomen Ultrasound 03/12/17 00:00 IMPRESSION: Moderate ascites. Paracentesis Ultrasound 03/12/17 12:15 IMPRESSION: Successful ultrasound-guided diagnostic and therapeutic paracentesis Assessment & Plan - Diagnosis (1) SBP (spontaneous bacterial peritonitis) Is this a current diagnosis for this admission?: YesPlan: empiric cefepime through today for 3d course, culture/Gm stain no pathogen (2) Cirrhosis of liver Qualifiers: Hepatic cirrhosis type: alcoholic cirrhosis Is this a current diagnosis for this admission?: YesPlan: worsening; rapidly recurring ascites in spite of Rx management and now 3 paracenteses, worsening jaundice advanced cirrhosis per Bx complicated by chronic Hep C, with resultant complications of marrow dysfxn, coagulopathy and ascites. (3) Acute hypoxemic respiratory failure Is this a current diagnosis for this admission?: YesPlan: unchanged and not progressing; likely 2/2 pulmonary nodules and underlying lung disease and less likely infectious as originally hoped, abx stopped 03/07. continue supplemental O2 and attempts to maintain euvolemia as his condition will allow. completed 2 separate rounds of IV lasix and albumin without any improvement, even transiently (4) Right heart failure Is this a current diagnosis for this admission?: YesPlan: worsening with increasing edema, persistent breathlessness; elevated BNP and severe lymphedema of legs; failing an increase in aldactone and titration of lasix as his condition will allow. (5) Ecchymoses, spontaneous Is this a current diagnosis for this admission?: Yes (6) Pulmonary nodule Is this a current diagnosis for this admission?: Yes (7) Sepsis Qualifiers: Sepsis type: sepsis due to unspecified organism Qualified Code(s): A41.9 - Sepsis, unspecified organism Is this a current diagnosis for this admission?: Yes (8) Hepatitis C Qualifiers: Viral hepatitis chronicity: chronic Hepatic coma status: without hepatic coma Qualified Code(s): B18.2 - Chronic viral hepatitis C Is this a current diagnosis for this admission?: Yes (9) Macrocytosis Is this a current diagnosis for this admission?: Yes (10) Thrombocytopenia Is this a current diagnosis for this admission?: Yes (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
[2017-03-15] MEDS: IPRATROPIUM/ALBUTEROL 0.5-2.5 MG/3 ML AMPUL NEB PRN (05:59)
[2017-03-15] MEDS: MORPHINE SULFATE 10 MG/ML INJ IV PRN ×2 (06:31→18:35)
--- NOTE | 2017-03-15 08:31 | PDOC PROGRESS REPORT ---
Subjective Progress Note for:: 03/15/17 Subjective:: Patient having bouts of confusion, is again on nonrebreather. Reviewed results over the last 1 week, we do not yet have a full tissue diagnosis although the biopsy was suspicious for carcinoma Physical Exam Vital Signs: Temp Pulse Resp BP Pulse Ox 97.5 F 97 26 H 94/77 L 93 03/15/17 07:48 03/15/17 07:48 03/15/17 07:48 03/15/17 07:48 03/15/17 07:50 Intake & Output 03/14/17 03/15/17 03/16/17 06:59 06:59 06:59 Intake Total 2050 1156 Output Total 1325 745 Balance 725 411 Weight 81 kg General appearance: PRESENT: no acute distress, well-developed, well-nourished Head exam: PRESENT: atraumatic, normocephalic Eye exam: PRESENT: conjunctiva pink, EOMI, PERRLA. ABSENT: scleral icterus Ear exam: PRESENT: normal external ear exam Mouth exam: PRESENT: moist, tongue midline Neck exam: ABSENT: carotid bruit, JVD, lymphadenopathy, thyromegaly Respiratory exam: PRESENT: clear to auscultation allan. ABSENT: rales, rhonchi, wheezes Cardiovascular exam: PRESENT: RRR. ABSENT: diastolic murmur, rubs, systolic murmur Pulses: PRESENT: normal dorsalis pedis pul Vascular exam: PRESENT: normal capillary refill GI/Abdominal exam: PRESENT: normal bowel sounds, soft. ABSENT: distended, guarding, mass, organolmegaly, rebound, tenderness Rectal exam: PRESENT: deferred Extremities exam: PRESENT: full ROM. ABSENT: calf tenderness, clubbing, pedal edema Neurological exam: PRESENT: alert, awake, oriented to person, oriented to place , oriented to time, oriented to situation, CN II-XII grossly intact. ABSENT: motor sensory deficit Psychiatric exam: PRESENT: appropriate affect, normal mood. ABSENT: homicidal ideation, suicidal ideation Skin exam: PRESENT: dry, intact, warm. ABSENT: cyanosis, rash Results Laboratory Results: 03/14/17 05:29 03/14/17 05:29 Impressions: Venous Doppler Study 03/01/17 00:00 IMPRESSION: NO EVIDENCE DVT OR SVT IN EITHER LEG. Body Scan Nuclear Medicine 03/02/17 00:00 IMPRESSION: No areas of increased uptake worrisome for bony metastatic disease Chest/Abdomen CTA 03/04/17 00:00 IMPRESSION: 1. NORMAL CTA OF THE CHEST. NO PULMONARY EMBOLI. 2. STABLE FINDINGS RELATED TO MALIGNANCY AND METASTATIC INVOLVEMENT WITH NUMEROUS PULMONARY NODULES, MEDIASTINAL AND HILAR ADENOPATHY, LIVER LESIONS, AND ASCITES. SMALL PLEURAL EFFUSIONS. Guidance Needle Placement CT 03/05/17 00:00 IMPRESSION: Please see combined report for performance of procedure and radiologic supervision and interpretation. Liver Biopsy CT 03/05/17 07:00 IMPRESSION: CT GUIDED directed LIVER BIOPSY PERFORMED ABOVE. PATHOLOGY PENDING. NO IMMEDIATE COMPLICATIONS. Abdomen/Pelvis CT 03/08/17 00:00 IMPRESSION: Stable. Chest X-Ray 03/09/17 00:00 IMPRESSION: STABLE APPEARANCE WITH MULTIPLE PULMONARY NODULES. NO ACUTE FINDINGS. Abdomen Ultrasound 03/12/17 00:00 IMPRESSION: Moderate ascites. Paracentesis Ultrasound 03/12/17 12:15 IMPRESSION: Successful ultrasound-guided diagnostic and therapeutic paracentesis Assessment & Plan - Diagnosis (1) Pulmonary metastases Qualifiers: Laterality: unspecified laterality Qualified Code(s): C78.00 - Secondary malignant neoplasm of unspecified lung Is this a current diagnosis for this admission?: YesPlan: It does appear to be cancer related, but we do not have the full diagnosis yet, at this point he is too weak for another attempt at diagnosis which would be a lung biopsy, that would most certainly cause a pneumothorax as well as possible need for intubation. At this point I would recommend against any further diagnostics, he would be best served possibly with hospice. However, unsure if family is ready for that, I discussed this with the patient, but he did not seem fully aware to be able to have a conversation as of now. - Time Time Spent with patient: 35 or more minutes Critical Time spent with patient: 35 or more minutes
[2017-03-15] MEDS: FUROSEMIDE 40 MG TABLET PO SCH (09:23)
[2017-03-15] MEDS: SPIRONOLACTONE 25 MG TABLET PO SCH ×2 (09:23→21:38)
[2017-03-15] MEDS: THIAMINE HCL 100 MG TABLET PO SCH (09:24)
[2017-03-15] MEDS: MULTIVITAMIN TABLET PO SCH (09:24)
[2017-03-15] MEDS: DILTIAZEM HCL 180 MG CAPSULE.CR PO SCH (09:24)
[2017-03-15] MEDS: FOLIC ACID 1 MG TABLET PO SCH (09:24)
[2017-03-15] MEDS: ALBUMIN HUMAN 50 ML IV SCH ×4 (12:03→16:00)
--- NOTE | 2017-03-15 12:24 | PDOC PROGRESS REPORT ---
Subjective Progress Note for:: 03/15/17 Subjective:: Lethargic week somewhat disoriented choking with a sip of water Physical Exam Vital Signs: Temp Pulse Resp BP Pulse Ox 97.5 F 86 21 H 111/53 L 98 03/15/17 07:48 03/15/17 09:48 03/15/17 09:48 03/15/17 09:15 03/15/17 09:48 Intake & Output 03/14/17 03/15/17 03/16/17 06:59 06:59 06:59 Intake Total 2050 1156 Output Total 1325 745 Balance 725 411 Weight 81 kg General appearance: PRESENT: cooperative, disheveled, mild distress, thin Head exam: PRESENT: atraumatic, normocephalic Eye exam: PRESENT: conjunctiva pale, EOMI Mouth exam: PRESENT: dry mucosa, neck supple, tongue midline Neck exam: ABSENT: carotid bruit, JVD, lymphadenopathy, thyromegaly Respiratory exam: PRESENT: decreased breath sounds, prolonged expiratory phas, rhonchi, symmetrical, unlabored Cardiovascular exam: PRESENT: RRR, +S1, +S2 Pulses: PRESENT: normal radial pulses GI/Abdominal exam: PRESENT: normal bowel sounds, soft. ABSENT: distended, guarding, mass, organolmegaly, rebound, tenderness Rectal exam: PRESENT: deferred Musculoskeletal exam: PRESENT: normal inspection Neurological exam: PRESENT: awake Psychiatric exam: PRESENT: flat affect Skin exam: PRESENT: dry, warm Results Laboratory Results: 03/14/17 05:29 03/14/17 05:29 Impressions: Venous Doppler Study 03/01/17 00:00 IMPRESSION: NO EVIDENCE DVT OR SVT IN EITHER LEG. Body Scan Nuclear Medicine 03/02/17 00:00 IMPRESSION: No areas of increased uptake worrisome for bony metastatic disease Chest/Abdomen CTA 03/04/17 00:00 IMPRESSION: 1. NORMAL CTA OF THE CHEST. NO PULMONARY EMBOLI. 2. STABLE FINDINGS RELATED TO MALIGNANCY AND METASTATIC INVOLVEMENT WITH NUMEROUS PULMONARY NODULES, MEDIASTINAL AND HILAR ADENOPATHY, LIVER LESIONS, AND ASCITES. SMALL PLEURAL EFFUSIONS. Guidance Needle Placement CT 03/05/17 00:00 IMPRESSION: Please see combined report for performance of procedure and radiologic supervision and interpretation. Liver Biopsy CT 03/05/17 07:00 IMPRESSION: CT GUIDED directed LIVER BIOPSY PERFORMED ABOVE. PATHOLOGY PENDING. NO IMMEDIATE COMPLICATIONS. Abdomen/Pelvis CT 03/08/17 00:00 IMPRESSION: Stable. Chest X-Ray 03/09/17 00:00 IMPRESSION: STABLE APPEARANCE WITH MULTIPLE PULMONARY NODULES. NO ACUTE FINDINGS. Abdomen Ultrasound 03/12/17 00:00 IMPRESSION: Moderate ascites. Paracentesis Ultrasound 03/12/17 12:15 IMPRESSION: Successful ultrasound-guided diagnostic and therapeutic paracentesis Assessment & Plan - Diagnosis (1) Acute hypoxemic respiratory failure Is this a current diagnosis for this admission?: YesPlan: Still requiring high FiO2(100% nonrebreather) no evidence of hypercapnic respiratory failure (2) Cirrhosis of liver Qualifiers: Hepatic cirrhosis type: alcoholic cirrhosis Is this a current diagnosis for this admission?: YesPlan: Biopsy abnormal but not consistent with malignancy (3) Pulmonary nodule Is this a current diagnosis for this admission?: YesPlan: Presumably metastatic disease (4) Hepatitis C Qualifiers: Viral hepatitis chronicity: chronic Hepatic coma status: without hepatic coma Qualified Code(s): B18.2 - Chronic viral hepatitis C Is this a current diagnosis for this admission?: Yes (5) Thrombocytopenia Is this a current diagnosis for this admission?: Yes (6) Atrial fibrillation with RVR Is this a current diagnosis for this admission?: Yes - Plan Summary Plan Summary: As it appears no additional workup is being pursued because the patient's underlying debilitation.In my opinion patient should be DNR at the least and probably comfort care;As he states "I am tired so tired"
--- NOTE | 2017-03-15 12:26 | PDOC PROGRESS REPORT ---
Subjective Progress Note for:: 03/10/17 Subjective:: Lethargic weak With family Physical Exam Vital Signs: Temp Pulse Resp BP Pulse Ox 97.3 F 89 21 H 123/60 100 03/11/17 08:02 03/11/17 08:02 03/11/17 08:02 03/11/17 08:02 03/11/17 08:02 Intake & Output 03/10/17 03/11/17 03/12/17 06:59 06:59 06:59 Intake Total 1530 1121 Output Total 1575 200 Balance -45 921 Weight 95.9 kg 97.6 kg General appearance: PRESENT: cooperative, disheveled, mild distress, thin, well- developed Head exam: PRESENT: atraumatic, normocephalic Eye exam: PRESENT: conjunctiva pale, EOMI Mouth exam: PRESENT: dry mucosa, neck supple Neck exam: ABSENT: carotid bruit, JVD, lymphadenopathy, thyromegaly Respiratory exam: PRESENT: decreased breath sounds, prolonged expiratory phas, rhonchi, symmetrical Cardiovascular exam: PRESENT: RRR, +S1, +S2 Pulses: PRESENT: normal radial pulses GI/Abdominal exam: PRESENT: normal bowel sounds, soft. ABSENT: distended, guarding, mass, organolmegaly, rebound, tenderness Rectal exam: PRESENT: deferred Musculoskeletal exam: PRESENT: normal inspection Neurological exam: PRESENT: awake Psychiatric exam: PRESENT: flat affect Skin exam: PRESENT: dry, warm Results Laboratory Results: 03/10/17 15:03 03/10/17 15:03 03/10/17 03/10/17 15:03 15:03 WBC 11.1 H RBC 2.38 L Hgb 9.6 L Hct 28.7 L MCV 120 H MCH 40.1 H MCHC 33.3 RDW 16.4 H Plt Count 61 L Seg Neutrophils % 85.8 H Lymphocytes % 7.3 L Monocytes % 5.4 Eosinophils % 0.7 Basophils % 0.8 Absolute Neutrophils 9.5 H Absolute Lymphocytes 0.8 Absolute Monocytes 0.6 Absolute Eosinophils 0.1 Absolute Basophils 0.1 Sodium 130.6 L Potassium 4.5 Chloride 100 Carbon Dioxide 20 L Anion Gap 11 BUN 21 H Creatinine 0.86 Est GFR ( Amer) > 60 Est GFR (Non-Af Amer) > 60 Glucose 216 H Calcium 8.8 Impressions: Venous Doppler Study 03/01/17 00:00 IMPRESSION: NO EVIDENCE DVT OR SVT IN EITHER LEG. Body Scan Nuclear Medicine 03/02/17 00:00 IMPRESSION: No areas of increased uptake worrisome for bony metastatic disease Chest/Abdomen CTA 03/04/17 00:00 IMPRESSION: 1. NORMAL CTA OF THE CHEST. NO PULMONARY EMBOLI. 2. STABLE FINDINGS RELATED TO MALIGNANCY AND METASTATIC INVOLVEMENT WITH NUMEROUS PULMONARY NODULES, MEDIASTINAL AND HILAR ADENOPATHY, LIVER LESIONS, AND ASCITES. SMALL PLEURAL EFFUSIONS. Guidance Needle Placement CT 03/05/17 00:00 IMPRESSION: Please see combined report for performance of procedure and radiologic supervision and interpretation. Paracentesis Ultrasound 03/05/17 00:00 IMPRESSION: SUCCESSFUL CT GUIDED PARACENTESIS. Liver Biopsy CT 03/05/17 07:00 IMPRESSION: CT GUIDED directed LIVER BIOPSY PERFORMED ABOVE. PATHOLOGY PENDING. NO IMMEDIATE COMPLICATIONS. Abdomen/Pelvis CT 03/08/17 00:00 IMPRESSION: Stable. Chest X-Ray 03/09/17 00:00 IMPRESSION: STABLE APPEARANCE WITH MULTIPLE PULMONARY NODULES. NO ACUTE FINDINGS. Assessment & Plan - Diagnosis (1) Acute hypoxemic respiratory failure Is this a current diagnosis for this admission?: Yes (2) Cirrhosis of liver Qualifiers: Hepatic cirrhosis type: alcoholic cirrhosis Is this a current diagnosis for this admission?: Yes (3) Pulmonary nodule Is this a current diagnosis for this admission?: Yes (4) Hepatitis C Qualifiers: Viral hepatitis chronicity: chronic Hepatic coma status: without hepatic coma Qualified Code(s): B18.2 - Chronic viral hepatitis C Is this a current diagnosis for this admission?: Yes (5) Thrombocytopenia Is this a current diagnosis for this admission?: Yes
--- NOTE | 2017-03-15 12:29 | PDOC PROGRESS REPORT ---
Subjective Progress Note for:: 03/12/17 Subjective:: Lethargic weak Physical Exam Vital Signs: Temp Pulse Resp BP Pulse Ox 97.6 F 84 26 H 117/69 92 03/13/17 11:48 03/13/17 12:40 03/13/17 11:48 03/13/17 11:48 03/13/17 12:40 Intake & Output 03/12/17 03/13/17 03/14/17 06:59 06:59 06:59 Intake Total 1680 1503 Output Total 1000 1300 Balance 680 203 Weight 96.1 kg 92.2 kg General appearance: PRESENT: cooperative, disheveled, thin, well-developed Head exam: PRESENT: atraumatic, normocephalic Eye exam: PRESENT: conjunctiva pale, EOMI Mouth exam: PRESENT: dry mucosa, neck supple Neck exam: ABSENT: carotid bruit, JVD, lymphadenopathy, thyromegaly Respiratory exam: PRESENT: decreased breath sounds, prolonged expiratory phas, rhonchi, symmetrical Cardiovascular exam: PRESENT: RRR, +S1, +S2 Pulses: PRESENT: normal radial pulses GI/Abdominal exam: PRESENT: normal bowel sounds, soft. ABSENT: distended, guarding, mass, organolmegaly, rebound, tenderness Rectal exam: PRESENT: deferred Musculoskeletal exam: PRESENT: normal inspection Neurological exam: PRESENT: awake Skin exam: PRESENT: dry, warm Results Laboratory Results: 03/12/17 04:37 03/12/17 04:37 03/12/17 13:55 Fluid Type PERITONEAL Fluid Source Fluid Color RED Fluid Appearance CLOUDY Fluid Viscosity LIQUID Fluid WBC 837 Fluid RBC 198277 Impressions: Venous Doppler Study 03/01/17 00:00 IMPRESSION: NO EVIDENCE DVT OR SVT IN EITHER LEG. Body Scan Nuclear Medicine 03/02/17 00:00 IMPRESSION: No areas of increased uptake worrisome for bony metastatic disease Chest/Abdomen CTA 03/04/17 00:00 IMPRESSION: 1. NORMAL CTA OF THE CHEST. NO PULMONARY EMBOLI. 2. STABLE FINDINGS RELATED TO MALIGNANCY AND METASTATIC INVOLVEMENT WITH NUMEROUS PULMONARY NODULES, MEDIASTINAL AND HILAR ADENOPATHY, LIVER LESIONS, AND ASCITES. SMALL PLEURAL EFFUSIONS. Guidance Needle Placement CT 03/05/17 00:00 IMPRESSION: Please see combined report for performance of procedure and radiologic supervision and interpretation. Liver Biopsy CT 03/05/17 07:00 IMPRESSION: CT GUIDED directed LIVER BIOPSY PERFORMED ABOVE. PATHOLOGY PENDING. NO IMMEDIATE COMPLICATIONS. Abdomen/Pelvis CT 03/08/17 00:00 IMPRESSION: Stable. Chest X-Ray 03/09/17 00:00 IMPRESSION: STABLE APPEARANCE WITH MULTIPLE PULMONARY NODULES. NO ACUTE FINDINGS. Abdomen Ultrasound 03/12/17 00:00 IMPRESSION: Moderate ascites. Paracentesis Ultrasound 03/12/17 12:15 IMPRESSION: Successful ultrasound-guided diagnostic and therapeutic paracentesis Assessment & Plan - Diagnosis (1) Acute hypoxemic respiratory failure Is this a current diagnosis for this admission?: Yes (2) Cirrhosis of liver Qualifiers: Hepatic cirrhosis type: alcoholic cirrhosis Is this a current diagnosis for this admission?: Yes (3) Pulmonary nodule Is this a current diagnosis for this admission?: Yes (4) Hepatitis C Qualifiers: Viral hepatitis chronicity: chronic Hepatic coma status: without hepatic coma Qualified Code(s): B18.2 - Chronic viral hepatitis C Is this a current diagnosis for this admission?: Yes (5) Thrombocytopenia Is this a current diagnosis for this admission?: Yes
[2017-03-15] MEDS ORDERED: FUROSEMIDE INJ/PF 20 MG/2 ML SDV IV SCH (14:00)
--- NOTE | 2017-03-15 14:45 | PDOC PROGRESS REPORT ---
Subjective Progress Note for:: 03/15/17 Subjective:: reason for visit: f/u liver cirrhosis with ascites, pulmonary nodules, liver masses, hypoxia, afib with rvr hospital course: review of notes so far - 61-year-old male with known history of hepatitis C/cirrhosis, recently increasing abdominal girth, has visible jaundice, telangiectasias, he had CTA of the chest done because of increasing shortness of breath, this indicated diffuse bilateral pulmonary nodules the largest was 1.8 cm, mediastinal adenopathy that was bulky, retroperitoneal adenopathy also bulky. There is some hypodensities in the liver but it was not fully evaluated by the imaging. He denies weight loss but his major complaint has been increasing abdominal girth and shortness of breath. He does have history of heavy drinking in the past but denies heavy drinking over the last few years. He was told about hepatitis C about 2 years ago. Patient describes a 2 week history of progressive shortness of breath, in particular with much of any exertion. This is been particularly noticeable over the last 5 days. He is unable to walk over the last day or so simply because he is too short of breath. There has been no chest pain, fever or chills. Mild dry cough. Has chronic intermittent bilateral lower extremity edema, worse over the past 2 days. Underlying hypertension, but denies previous myocardial infarction, congestive heart failure, pulmonary embolus, or DVT. Was in significant respiratory distress upon presentation, necessitating application of BiPAP, which is since been changed to CPAP. Breathing a bit more comfortably now. Of note, patient is a rambling historian, and seems to have poor insight at best into acute and chronic medical issues. Denies any recent significant weight loss." I followed up with him the morning of admission and he was still requiring BIPAP for increased WOB and hypoxia when off of it. he states he simply " cannot breathe without it right now" and has no prior hx of DAYRON or CPAP needs. he does have hx of COPD "but not yet full blown emphysema" and uses nebulizer machine at home but no home O2. During this first 7 days the patient improved remarkably with his lower extremity swelling. Developed A. fib with RVR old initially with Cardizem drip. The patient is now on p.o. part Cardizem and doing well. He underwent paracentesis at 1100 mL of fluid taken off. The Cytology of the ascitic fluid was not helpful. He underwent biopsy of the liver and pathology is pending. Yesterday the patient developed oozing of his peritoneal site and a colostomy bag was placed over it. He also developed marked increased swelling in the lower extremities. He states he feels better overall. Denies any chest pain or worsening shortness of breath, but on exam and clinically he is worse. Overnight he has developed ecchymosis of the right flank. He is not receiving heparin products. He has discomfort of this area. I resumed his care again Wednesday and he appears overall better than when I left him a week ago but certainly not well enough to disposition home just yet. He remains very weak, easily winded and unable to care for himself at this juncture. He had undergone 2 attempts at tissue diagnosis for what is believed to be malignancy without achieving confirmation of anything other than severe cirrhosis. Family (son) arrived and they have unrealistic expectations, anticipating that he will recover enough to not only get the Bx and tissue diagnosis he wants but to also begin treatment/chemo and in spite of my and dr marte's efforts to educate them to risks associated with his poor functional status, challenging blood counts, failing liver, etc. Anushka, his daughter in [place], seems more understanding and accepting of her father's fate but isn' t willing to move to comfort measures as yet. He underwent his 3rd paracentesis 03/12 removing >3L of serosanguinous fluid that studies show to be bloody with elevated wbcs worrisome for SBP, Gm stain is pending. empiric cefepime started 03/13. cultures and Gm stain show no pathogen so it was stopped after 3d. He is becoming more jaundiced and in general his liver seems to be actively failing. ROS: He is a bit more responsive and appropriate again this morning but in worsening respiratory distress and is rapidly reaccumulating fluid in all the wrong places. persistent dyspnea with minimal exertion; improved sharp stabbing pain in his Rt side along the area of the Bx and paracentesis sites. he denies chest pain, palpitations, N/V/D, melena, hematochezia, all systems reviewed, remaining systems negative. Physical Exam Vital Signs: Temp Pulse Resp BP Pulse Ox 97.6 F 79 24 H 97/55 L 92 03/15/17 12:19 03/15/17 12:19 03/15/17 12:19 03/15/17 12:19 03/15/17 12:19 Intake & Output 03/14/17 03/15/17 03/16/17 06:59 06:59 06:59 Intake Total 0 1156 240 Output Total 1325 745 Balance 725 411 240 Weight 81 kg General appearance: PRESENT: mod resp distress, only able to speak in 3-4 word sentences Head exam: PRESENT: atraumatic, normocephalic Eye exam: PRESENT: scleral icterus. ABSENT: conjunctival injection Mouth exam: PRESENT: dry mucosa, neck supple Teeth exam: PRESENT: poor dentation Neck exam: PRESENT: full ROM. ABSENT: tracheal deviation Respiratory exam: PRESENT: accessory muscle use, crackles and rales, tachypnea. ABSENT: rhonchi, wheezes Cardiovascular exam: PRESENT: RRR. ABSENT: tachycardia Pulses: PRESENT: normal radial pulses Vascular exam: PRESENT: decreased capillary refill GI/Abdominal exam: PRESENT: recurrent ascites - shifting dullness and fluid wave even more evident and worsening, still distended, normal bowel sounds, diffuse mild tenderness ABSENT: guarding, rigid Extremities exam: PRESENT: >+3 edema - worse. ABSENT: calf tenderness, tenderness Musculoskeletal exam: ABSENT: full ROM - very weak and getting weaker, remains 3 /5 today Neurological exam: PRESENT: awake, oriented to person, oriented to place, oriented to time, Psychiatric exam: PRESENT: appropriate affect, normal mood Focused psych exam: ABSENT: psychomotor agitation Skin exam: PRESENT: moist, cool and jaundiced Results Laboratory Results: 03/14/17 05:29 03/14/17 05:29 Assessment & Plan - Diagnosis (1) Cirrhosis of liver Qualifiers: Hepatic cirrhosis type: alcoholic cirrhosis Is this a current diagnosis for this admission?: YesPlan: worsening; rapidly recurring ascites in spite of Rx management and now 3 paracenteses, worsening jaundice; increase lasix to IV and q8, continue aldactone and add xifaxan as I suspect his ammonia will begin climbing soon and lactulose induced diarrhea would not be tolerated by his resp status advanced cirrhosis per Bx complicated by chronic Hep C, with resultant complications of marrow dysfxn, coagulopathy and ascites. (2) Acute hypoxemic respiratory failure Is this a current diagnosis for this admission?: YesPlan: worse and not progressing; likely 2/2 pulmonary nodules and underlying lung disease and less likely infectious as originally hoped, abx stopped 03/07. continue supplemental O2 and attempts to maintain euvolemia as his condition will allow. completed 2 separate rounds of IV lasix and albumin without any improvement, even transiently but reaching the point of desperation and will try again. (3) Right heart failure Is this a current diagnosis for this admission?: YesPlan: worsening with increasing edema, persistent breathlessness; elevated BNP and severe lymphedema of legs; failing an increase in aldactone and titration of lasix; see above. (4) Ecchymoses, spontaneous Is this a current diagnosis for this admission?: YesPlan: improved but extensive and there is pain associated with the fluid collection, no sign of infection as yet but at risk for same. likely spontaneous hemorrhage under the skin after Bx; no signs of active hemorrhage at this time. (5) Hepatitis C Qualifiers: Viral hepatitis chronicity: chronic Hepatic coma status: without hepatic coma Qualified Code(s): B18.2 - Chronic viral hepatitis C Is this a current diagnosis for this admission?: Yes (6) Macrocytosis Is this a current diagnosis for this admission?: Yes (7) Thrombocytopenia Is this a current diagnosis for this admission?: Yes (8) Hypergammaglobulinemia, unspecified Is this a current diagnosis for this admission?: Yes (9) Atrial fibrillation with RVR Is this a current diagnosis for this admission?: Yes (10) Full code status Is this a current diagnosis for this admission?: Yes (11) SBP (spontaneous bacterial peritonitis) Is this a current diagnosis for this admission?: YesPlan: empiric cefepime for 3d course, culture/Gm stain no pathogen (12) Sepsis Qualifiers: Sepsis type: sepsis due to unspecified organism Qualified Code(s): A41.9 - Sepsis, unspecified organism Is this a current diagnosis for this admission?: Yes (13) Pulmonary nodule Is this a current diagnosis for this admission?: Yes - Time Time Spent with patient: 25-34 minutes - Plan Summary Plan Summary: prognosis is grim, his condition is slowly deteriorating; he is unaccepting of this fact and continues to wish for recovery and treatment and aggressive therapy, honestly I feel like this is futile care, his fate is sealed and his time is limited.
[2017-03-15] MEDS: RIFAXIMIN 550 MG TABLET PO SCH (18:00)
[2017-03-15] MEDS: FUROSEMIDE INJ/PF 40 MG/4 ML SDV IV SCH ×2 (18:00→21:38)
[2017-03-16] MEDS: FUROSEMIDE INJ/PF 40 MG/4 ML SDV IV SCH ×2 (05:37→14:19)
[2017-03-16] MEDS: MORPHINE SULFATE 10 MG/ML INJ IV PRN (05:43)
[2017-03-16 06:00] LABS: PROTHROMBIN TIME 23.2 SEC (11.4-15.4)
[2017-03-16 06:11] LABS: BLOOD UREA NITROGEN 32 mg/dL (7-20); CALCIUM 9.6 mg/dL (8.4-10.2); CREATININE RESULT 1.14 mg/dL (0.52-1.25); GLUCOSE 159 mg/dL (75-110)
[2017-03-16 06:12] LABS: ALANINE AMINOTRANSFERASE 47 U/L (21-72); ALBUMIN 2.4 g/dL (3.5-5.0); ALKALINE PHOSPHATASE 213 U/L (38-126); ANION GAP 11 (5-19); ASPARTATE AMINO TRANSFERASE 73 U/L (17-59); BILIRUBIN,DIRECT 6.9 mg/dL (0.0-0.4); BILIRUBIN,TOTAL 9.3 mg/dL (0.2-1.3); CARBON DIOXIDE 20 mmol/L (22-30); CHLORIDE 98 mmol/L (98-107); POTASSIUM 4.3 mmol/L (3.6-5.0); SODIUM 129.3 mmol/L (137-145); TOTAL PROTEIN 8.2 g/dL (6.3-8.2)
[2017-03-16 06:24] LABS: ABSOLUTE EOSINOPHILS # (AUTO) 0.1 10^3/uL (0.0-0.6); ABSOLUTE LYMPHOCYTES (AUTO) 0.8 10^3/uL (0.5-4.7); ABSOLUTE MONOCYTES (AUTO) 0.6 10^3/uL (0.1-1.4); ABSOLUTE NEUT (AUTO) 7.8 10^3/uL (1.7-8.2); BASOPHILS % (AUTO) 0.4 % (0-2); EOSINOPHILS % (AUTO) 1.1 % (0-6); HEMATOCRIT 23.1 % (37.9-51.0); HGB HCT DIFFERENCE 0.9; LYMPHOCYTES % (AUTO) 8.9 % (13-45); MEAN CORPUSCULAR HEMOGLOBIN 40.6 pg (27.0-33.4); MEAN CORPUSCULAR HGB CONC 34.5 g/dL (32.0-36.0); MEAN CORPUSCULAR VOLUME 118 fl (80-97); MONOCYTES % (AUTO) 6.7 % (3-13); RED BLOOD COUNT 1.97 10^6/uL (4.35-5.55); RED CELL DISTRIBUTION WIDTH 16.1 % (11.5-14.0); SEGMENTED NEUTROPHILS % (AUTO) 82.9 % (42-78); WHITE BLOOD COUNT 9.4 10^3/uL (4.0-10.5)
[2017-03-16 06:32] LABS: POLYCHROMASIA SLIGHT; TOXIC GRANULATION 1+
[2017-03-16 06:33] LABS: ANISOCYTOSIS 1+; POIKILOCYTOSIS SLIGHT; ROULEAUX SLIGHT; TEAR DROP CELLS SLIGHT
--- NOTE | 2017-03-16 08:08 | PDOC PROGRESS REPORT ---
Subjective Progress Note for:: 03/16/17 Subjective:: No acute events overnight, reviewed labs, platelet count has dropped to 30, INR is increased to 1.94, he is not actively bleeding. Physical Exam Vital Signs: Temp Pulse Resp BP Pulse Ox 97.2 F 86 20 106/58 L 92 03/16/17 07:36 03/16/17 07:36 03/16/17 07:36 03/16/17 07:36 03/16/17 07:36 Intake & Output 03/15/17 03/16/17 03/17/17 06:59 06:59 06:59 Intake Total 1156 2230 Output Total 745 1305 Balance 411 925 General appearance: PRESENT: mild distress Head exam: PRESENT: atraumatic Mouth exam: PRESENT: dry mucosa Respiratory exam: PRESENT: accessory muscle use, crackles Cardiovascular exam: PRESENT: RRR. ABSENT: diastolic murmur, rubs, systolic murmur GI/Abdominal exam: PRESENT: ascites, distended Rectal exam: PRESENT: deferred Neurological exam: PRESENT: alert, other - Confused Results Laboratory Results: 03/16/17 05:21 03/16/17 05:21 03/16/17 03/16/17 03/16/17 05:21 05:21 05:21 WBC 9.4 RBC 1.97 L Hgb 8.0 L Hct 23.1 L MCV 118 H MCH 40.6 H MCHC 34.5 RDW 16.1 H Plt Count 30 L* Seg Neutrophils % 82.9 H Lymphocytes % 8.9 L Monocytes % 6.7 Eosinophils % 1.1 Basophils % 0.4 Absolute Neutrophils 7.8 Absolute Lymphocytes 0.8 Absolute Monocytes 0.6 Absolute Eosinophils 0.1 Absolute Basophils 0.0 Sodium 129.3 L Potassium 4.3 Chloride 98 Carbon Dioxide 20 L Anion Gap 11 BUN 32 H Creatinine 1.14 Est GFR ( Amer) > 60 Est GFR (Non-Af Amer) > 60 Glucose 159 H Calcium 9.6 Total Bilirubin 9.3 H AST 73 H ALT 47 Alkaline Phosphatase 213 H Ammonia 24.6 Total Protein 8.2 Albumin 2.4 L Impressions: Venous Doppler Study 03/01/17 00:00 IMPRESSION: NO EVIDENCE DVT OR SVT IN EITHER LEG. Body Scan Nuclear Medicine 03/02/17 00:00 IMPRESSION: No areas of increased uptake worrisome for bony metastatic disease Chest/Abdomen CTA 03/04/17 00:00 IMPRESSION: 1. NORMAL CTA OF THE CHEST. NO PULMONARY EMBOLI. 2. STABLE FINDINGS RELATED TO MALIGNANCY AND METASTATIC INVOLVEMENT WITH NUMEROUS PULMONARY NODULES, MEDIASTINAL AND HILAR ADENOPATHY, LIVER LESIONS, AND ASCITES. SMALL PLEURAL EFFUSIONS. Guidance Needle Placement CT 03/05/17 00:00 IMPRESSION: Please see combined report for performance of procedure and radiologic supervision and interpretation. Liver Biopsy CT 03/05/17 07:00 IMPRESSION: CT GUIDED directed LIVER BIOPSY PERFORMED ABOVE. PATHOLOGY PENDING. NO IMMEDIATE COMPLICATIONS. Abdomen/Pelvis CT 03/08/17 00:00 IMPRESSION: Stable. Chest X-Ray 03/09/17 00:00 IMPRESSION: STABLE APPEARANCE WITH MULTIPLE PULMONARY NODULES. NO ACUTE FINDINGS. Abdomen Ultrasound 03/12/17 00:00 IMPRESSION: Moderate ascites. Paracentesis Ultrasound 03/12/17 12:15 IMPRESSION: Successful ultrasound-guided diagnostic and therapeutic paracentesis Assessment & Plan - Diagnosis (1) Pulmonary metastases Qualifiers: Laterality: unspecified laterality Qualified Code(s): C78.00 - Secondary malignant neoplasm of unspecified lung Is this a current diagnosis for this admission?: YesPlan: As noted previously we do not have any tissue diagnosis as of yet, no further workup possible at present, Today I had a long conversation greater than 40 minutes with his son Griffin, cell phone number [phone], he understands the situation, he is going to be talking to his sisters, they seem to be coming to the conclusion of comfort care measures. I will communicate this with the hospitalist team, and have the hospitalist team reach out to the son and discuss this further. - Time Time Spent with patient: 35 or more minutes Critical Time spent with patient: 35 or more minutes - Inpatient Certification Based on my medical assessment, after consideration of the patient's comorbidities, presenting symptoms, or acuity I expect that the services needed warrant INPATIENT care.: Yes I certify that my determination is in accordance with my understanding of Medicare's requirements for reasonable and necessary INPATIENT services [42 CFR 412.3e].: Yes Medical Necessity: Need For Continuous Telemetry Monitoring, Risk of Complication if Not Cared For in Hospital
[2017-03-16] MEDS: THIAMINE HCL 100 MG TABLET PO SCH (09:53)
[2017-03-16] MEDS: MULTIVITAMIN TABLET PO SCH (09:53)
[2017-03-16] MEDS: FOLIC ACID 1 MG TABLET PO SCH (09:54)
[2017-03-16] MEDS: SPIRONOLACTONE 25 MG TABLET PO SCH (09:56)
[2017-03-16] MEDS: DILTIAZEM HCL 180 MG CAPSULE.CR PO SCH (09:59)
[2017-03-16] MEDS ORDERED: MORPHINE SULFATE 10 MG/ML INJ IV ONE ×3 (10:00→23:30)
[2017-03-16] MEDS: RIFAXIMIN 550 MG TABLET PO SCH (10:01)
[2017-03-16] MEDS ORDERED: LORAZEPAM INJ 2 MG/1 ML VIAL IV PRN ×2 (13:38→15:26)
[2017-03-16] MEDS ORDERED: MORPHINE SULFATE 10 MG/ML INJ IV SCH (14:00)
[2017-03-16] MEDS: MORPHINE SULFATE 10 MG/ML INJ IV SCH ×7 (14:19→23:26)
[2017-03-16] MEDS ORDERED: LORAZEPAM INJ 2 MG/1 ML VIAL IV ONE (15:32)
[2017-03-16] MEDS ORDERED: SCOPOLAMINE HYDROBROMIDE 1.5 MG PATCH.TD72 TD SCH (15:45)
--- NOTE | 2017-03-16 15:46 | PDOC PROGRESS REPORT ---
Subjective Subjective:: The patient is an unfortunate 61-year-old male with a history of decompensated liver failure due to underlying cirrhosis and hepatitis C. He presented to the emergency room with increasing abdominal girth and shortness of breath. He was found to have bilateral pulmonary nodules, mediastinal and retroperitoneal adenopathy and some hypodensities in the liver. He has had a prolonged hospitalization and overall has not done well. He has been followed closely by oncology and pulmonology and all physicians are in agreement that the patient is at the end of life. I had a family meeting with the patient's children today. All 3 of them were present at this meeting. We reviewed the hospitalization today and they are all in agreement that they want no further aggressive treatment. They want to keep him comfortable and make sure that he does not suffer. They would like to stop all lab draws and supportive aggressive workup. At this point they would like to withdraw care and keep him comfortable with IV morphine and IV Ativan as they go along. When I went to see the patient this afternoon he was acutely uncomfortable. He was moaning, acutely short of breath and quite uncomfortable. He stated that he wanted me to give him something to make him feel better. Good review of systems could not be obtained Physical Exam Vital Signs: Temp Pulse Resp BP Pulse Ox 97.4 F 81 24 H 95/54 L 90 L 03/16/17 12:00 03/16/17 14:00 03/16/17 12:00 03/16/17 12:00 03/16/17 12:00 Intake & Output 03/15/17 03/16/17 03/17/17 06:59 06:59 06:59 Intake Total 1156 2230 Output Total 745 1305 Balance 411 925 General appearance: PRESENT: disheveled, other - He appears to be acutely uncomfortable and short of breath Head exam: PRESENT: atraumatic, normocephalic Mouth exam: PRESENT: moist Respiratory exam: PRESENT: crackles, other - He is diminished in the lower bases bilaterally with coarse breath sounds throughout all lung benavidez. Cardiovascular exam: PRESENT: +S1, +S2, tachycardia GI/Abdominal exam: PRESENT: ascites, distended, firm, tenderness Musculoskeletal exam: ABSENT: ambulatory Neurological exam: PRESENT: awake, oriented to person, oriented to place. ABSENT: oriented to time Psychiatric exam: PRESENT: agitated, anxious Results Laboratory Results: 03/16/17 05:21 03/16/17 05:21 03/16/17 03/16/17 03/16/17 05:21 05:21 05:21 WBC 9.4 RBC 1.97 L Hgb 8.0 L Hct 23.1 L MCV 118 H MCH 40.6 H MCHC 34.5 RDW 16.1 H Plt Count 30 L* Seg Neutrophils % 82.9 H Lymphocytes % 8.9 L Monocytes % 6.7 Eosinophils % 1.1 Basophils % 0.4 Absolute Neutrophils 7.8 Absolute Lymphocytes 0.8 Absolute Monocytes 0.6 Absolute Eosinophils 0.1 Absolute Basophils 0.0 Sodium 129.3 L Potassium 4.3 Chloride 98 Carbon Dioxide 20 L Anion Gap 11 BUN 32 H Creatinine 1.14 Est GFR ( Amer) > 60 Est GFR (Non-Af Amer) > 60 Glucose 159 H Calcium 9.6 Total Bilirubin 9.3 H AST 73 H ALT 47 Alkaline Phosphatase 213 H Ammonia 24.6 Total Protein 8.2 Albumin 2.4 L 03/12/17 13:55 Abdominal Fluid Gram Stain - Final 03/12/17 13:55 Abdominal Fluid Body Fluid Culture - Final NO AEROBIC OR ANAEROBIC ORGANISMS RECOVERED Impressions: Venous Doppler Study 03/01/17 00:00 IMPRESSION: NO EVIDENCE DVT OR SVT IN EITHER LEG. Body Scan Nuclear Medicine 03/02/17 00:00 IMPRESSION: No areas of increased uptake worrisome for bony metastatic disease Chest/Abdomen CTA 03/04/17 00:00 IMPRESSION: 1. NORMAL CTA OF THE CHEST. NO PULMONARY EMBOLI. 2. STABLE FINDINGS RELATED TO MALIGNANCY AND METASTATIC INVOLVEMENT WITH NUMEROUS PULMONARY NODULES, MEDIASTINAL AND HILAR ADENOPATHY, LIVER LESIONS, AND ASCITES. SMALL PLEURAL EFFUSIONS. Guidance Needle Placement CT 03/05/17 00:00 IMPRESSION: Please see combined report for performance of procedure and radiologic supervision and interpretation. Liver Biopsy CT 03/05/17 07:00 IMPRESSION: CT GUIDED directed LIVER BIOPSY PERFORMED ABOVE. PATHOLOGY PENDING. NO IMMEDIATE COMPLICATIONS. Abdomen/Pelvis CT 03/08/17 00:00 IMPRESSION: Stable. Chest X-Ray 03/09/17 00:00 IMPRESSION: STABLE APPEARANCE WITH MULTIPLE PULMONARY NODULES. NO ACUTE FINDINGS. Abdomen Ultrasound 03/12/17 00:00 IMPRESSION: Moderate ascites. Paracentesis Ultrasound 03/12/17 12:15 IMPRESSION: Successful ultrasound-guided diagnostic and therapeutic paracentesis Assessment & Plan - Diagnosis (1) Acute hypoxemic respiratory failure Is this a current diagnosis for this admission?: YesPlan: The patient will continue oxygen support. He is being transitioned to comfort measures. All further therapy will be stopped. (2) Atrial fibrillation with RVR Is this a current diagnosis for this admission?: YesPlan: Resolved. His Cardizem will be stopped. His remote monitor will be removed. (3) Cirrhosis of liver Qualifiers: Hepatic cirrhosis type: alcoholic cirrhosis Is this a current diagnosis for this admission?: Yes (4) Ecchymoses, spontaneous Is this a current diagnosis for this admission?: YesPlan: Likely secondary to worsening thrombocytopenia due to his decompensated liver failure (5) Pulmonary metastases Qualifiers: Laterality: unspecified laterality Qualified Code(s): C78.00 - Secondary malignant neoplasm of unspecified lung Is this a current diagnosis for this admission?: YesPlan: Suspicious for hepatocellular carcinoma. Unfortunately we have not had a definitive biopsy. The patient has diffuse metastatic disease and unfortunately due to his whole overall picture is not a candidate for any further treatment. I spoke to oncology this morning who recommended a transition to comfort measures. (6) SBP (spontaneous bacterial peritonitis) Is this a current diagnosis for this admission?: YesPlan: No further workup or treatment. The patient's family requested no further paracentesis. (7) Hepatitis C Qualifiers: Viral hepatitis chronicity: chronic Hepatic coma status: without hepatic coma Qualified Code(s): B18.2 - Chronic viral hepatitis C Is this a current diagnosis for this admission?: YesPlan: Likely the cause for his probable hepatocellular carcinoma. (8) Do not resuscitate Plan: This was confirmed with the family (9) Palliative care encounter Plan: The patient has been transitioned to comfort measures. Supportive care only from this point forward. We are stopping vital signs and removing his from monitor. We are going to place a Pacheco catheter. He will be kept comfortable with IV morphine as well as IV Ativan. I am placing a scopolamine patch to aid with secretions. The patient's family has requested that we keep him comfortable. Depending on how difficult his symptoms are to control, he may need a transition to a morphine drip. - Time Time Spent with patient: 35 or more minutes
[2017-03-16] MEDS ORDERED: SCOPOLAMINE HYDROBROMIDE 1.5 MG PATCH.TD72 TD ONE (16:00)
[2017-03-17] MEDS: MORPHINE SULFATE 10 MG/ML INJ IV SCH ×10 (01:20→10:57)
[2017-03-17 04:50] VITALS: BP 105/50
--- NOTE | 2017-03-17 07:52 | PDOC PROGRESS REPORT ---
Subjective Progress Note for:: 03/17/17 Subjective:: Pt resting comfortably, now having agonal type breathing, family at bedside Physical Exam Vital Signs: Temp Pulse Resp BP Pulse Ox 97.5 F 80 20 105/50 L 91 L 03/16/17 15:15 03/16/17 15:15 03/16/17 15:15 03/17/17 04:00 03/16/17 15:15 Intake & Output 03/16/17 03/17/17 03/18/17 06:59 06:59 06:59 Intake Total 2230 20 Output Total 1305 Balance 925 20 Additional comments: Exam deferred but pt seems comfortable Results Laboratory Results: 03/16/17 05:21 03/16/17 05:21 03/16/17 05:21 WBC 9.4 RBC 1.97 L Hgb 8.0 L Hct 23.1 L MCV 118 H MCH 40.6 H MCHC 34.5 RDW 16.1 H Plt Count 30 L* Seg Neutrophils % 82.9 H Lymphocytes % 8.9 L Monocytes % 6.7 Eosinophils % 1.1 Basophils % 0.4 Absolute Neutrophils 7.8 Absolute Lymphocytes 0.8 Absolute Monocytes 0.6 Absolute Eosinophils 0.1 Absolute Basophils 0.0 03/12/17 13:55 Abdominal Fluid Gram Stain - Final 03/12/17 13:55 Abdominal Fluid Body Fluid Culture - Final NO AEROBIC OR ANAEROBIC ORGANISMS RECOVERED Impressions: Venous Doppler Study 03/01/17 00:00 IMPRESSION: NO EVIDENCE DVT OR SVT IN EITHER LEG. Body Scan Nuclear Medicine 03/02/17 00:00 IMPRESSION: No areas of increased uptake worrisome for bony metastatic disease Chest/Abdomen CTA 03/04/17 00:00 IMPRESSION: 1. NORMAL CTA OF THE CHEST. NO PULMONARY EMBOLI. 2. STABLE FINDINGS RELATED TO MALIGNANCY AND METASTATIC INVOLVEMENT WITH NUMEROUS PULMONARY NODULES, MEDIASTINAL AND HILAR ADENOPATHY, LIVER LESIONS, AND ASCITES. SMALL PLEURAL EFFUSIONS. Guidance Needle Placement CT 03/05/17 00:00 IMPRESSION: Please see combined report for performance of procedure and radiologic supervision and interpretation. Liver Biopsy CT 03/05/17 07:00 IMPRESSION: CT GUIDED directed LIVER BIOPSY PERFORMED ABOVE. PATHOLOGY PENDING. NO IMMEDIATE COMPLICATIONS. Abdomen/Pelvis CT 03/08/17 00:00 IMPRESSION: Stable. Chest X-Ray 03/09/17 00:00 IMPRESSION: STABLE APPEARANCE WITH MULTIPLE PULMONARY NODULES. NO ACUTE FINDINGS. Abdomen Ultrasound 03/12/17 00:00 IMPRESSION: Moderate ascites. Paracentesis Ultrasound 03/12/17 12:15 IMPRESSION: Successful ultrasound-guided diagnostic and therapeutic paracentesis Assessment & Plan - Diagnosis (1) Pulmonary metastases Qualifiers: Laterality: unspecified laterality Qualified Code(s): C78.00 - Secondary malignant neoplasm of unspecified lung Is this a current diagnosis for this admission?: YesPlan: No further w/u or treatment planned, pt on comfort care, will sign off, thanks for the opportunity to assist in this pts care. - Time Time Spent with patient: 15-24 minutes Critical Time spent with patient: 15-24 minutes
[2017-03-17] MEDS ORDERED: MORPHINE SULFATE 10 MG/ML INJ IV SCH (11:00)
--- NOTE | 2017-03-17 14:00 | Death Summary ---
Summary Date : 03/17/17 Time of :: 12:53 Autopsy: No Resuscitation Status: Comfort Measures Only Primary Care Provider: [facility] Consulting Provider: Dr. Fried. Dr. Ramires - Final Diagnosis (1) Acute hypoxemic respiratory failure Is this a current diagnosis for this admission?: Yes (2) Atrial fibrillation with RVR Is this a current diagnosis for this admission?: Yes (3) Cirrhosis of liver Is this a current diagnosis for this admission?: Yes (4) Ecchymoses, spontaneous Is this a current diagnosis for this admission?: Yes (5) Pulmonary metastases Is this a current diagnosis for this admission?: Yes (6) SBP (spontaneous bacterial peritonitis) Is this a current diagnosis for this admission?: Yes (7) Hepatitis C Is this a current diagnosis for this admission?: Yes Hospital Course:: The patient was an unfortunate 61-year-old male with a past medical history of decompensated liver failure due to underlying cirrhosis and hepatitis C. He has had a prolonged hospitalization so please see complete medical record for details. In short, he presented to the emergency room with increasing abdominal girth and shortness of breath. He was found to have evidence of bilateral pulmonary nodules, bulky mediastinal and retroperitoneal adenopathy as well as some hypodensities in the liver. He was followed closely by oncology as well as pulmonology. He has had increasing respiratory failure and decompensated liver failure. He underwent large volume paracentesis and had spontaneous bacterial peritonitis for which she was treated. Ultimately however it was felt that the patient had underlying malignancy likely a carcinoma of the liver. He had an inconclusive biopsy. Due to his poor functional status and liver failure it was not felt that he would be a candidate for any sort of treatment for no further workup was obtained. On 03/16 a discussion was had with the patient's family and the decision was made to transition him to comfort measures. He was kept comfortable with IV morphine and IV Ativan. He had a scopolamine patch in place. At 12:53 PM the patient peacefully .
--- NOTE | 2017-03-17 16:59 | PDOC PROGRESS REPORT ---
Subjective Progress Note for:: 03/16/17 Subjective:: can I have something for pain Physical Exam Vital Signs: Temp Pulse Resp BP Pulse Ox 97.2 F 86 20 106/58 L 92 03/16/17 07:36 03/16/17 07:36 03/16/17 07:36 03/16/17 07:36 03/16/17 07:36 Intake & Output 03/15/17 03/16/17 03/17/17 06:59 06:59 06:59 Intake Total 1156 2230 Output Total 745 1305 Balance 411 925 General appearance: PRESENT: cooperative, disheveled, mild distress, thin, well- developed Head exam: PRESENT: atraumatic, normocephalic Eye exam: PRESENT: conjunctiva pale, EOMI Mouth exam: PRESENT: dry mucosa, neck supple Teeth exam: PRESENT: poor dentation Neck exam: ABSENT: carotid bruit, JVD, lymphadenopathy, thyromegaly Respiratory exam: PRESENT: decreased breath sounds, prolonged expiratory phas, rhonchi, wheezes Cardiovascular exam: PRESENT: irregular rhythm Pulses: PRESENT: normal radial pulses GI/Abdominal exam: PRESENT: normal bowel sounds, soft. ABSENT: distended, guarding, mass, organolmegaly, rebound, tenderness Rectal exam: PRESENT: deferred Musculoskeletal exam: PRESENT: normal inspection Neurological exam: PRESENT: alert, awake Psychiatric exam: PRESENT: anxious Skin exam: PRESENT: dry, warm Results Laboratory Results: 03/16/17 05:21 03/16/17 05:21 03/16/17 03/16/17 03/16/17 05:21 05:21 05:21 WBC 9.4 RBC 1.97 L Hgb 8.0 L Hct 23.1 L MCV 118 H MCH 40.6 H MCHC 34.5 RDW 16.1 H Plt Count 30 L* Seg Neutrophils % 82.9 H Lymphocytes % 8.9 L Monocytes % 6.7 Eosinophils % 1.1 Basophils % 0.4 Absolute Neutrophils 7.8 Absolute Lymphocytes 0.8 Absolute Monocytes 0.6 Absolute Eosinophils 0.1 Absolute Basophils 0.0 Sodium 129.3 L Potassium 4.3 Chloride 98 Carbon Dioxide 20 L Anion Gap 11 BUN 32 H Creatinine 1.14 Est GFR ( Amer) > 60 Est GFR (Non-Af Amer) > 60 Glucose 159 H Calcium 9.6 Total Bilirubin 9.3 H AST 73 H ALT 47 Alkaline Phosphatase 213 H Ammonia 24.6 Total Protein 8.2 Albumin 2.4 L 03/12/17 13:55 Abdominal Fluid Gram Stain - Final 03/12/17 13:55 Abdominal Fluid Body Fluid Culture - Final NO AEROBIC OR ANAEROBIC ORGANISMS RECOVERED Impressions: Venous Doppler Study 03/01/17 00:00 IMPRESSION: NO EVIDENCE DVT OR SVT IN EITHER LEG. Body Scan Nuclear Medicine 03/02/17 00:00 IMPRESSION: No areas of increased uptake worrisome for bony metastatic disease Chest/Abdomen CTA 03/04/17 00:00 IMPRESSION: 1. NORMAL CTA OF THE CHEST. NO PULMONARY EMBOLI. 2. STABLE FINDINGS RELATED TO MALIGNANCY AND METASTATIC INVOLVEMENT WITH NUMEROUS PULMONARY NODULES, MEDIASTINAL AND HILAR ADENOPATHY, LIVER LESIONS, AND ASCITES. SMALL PLEURAL EFFUSIONS. Guidance Needle Placement CT 03/05/17 00:00 IMPRESSION: Please see combined report for performance of procedure and radiologic supervision and interpretation. Liver Biopsy CT 03/05/17 07:00 IMPRESSION: CT GUIDED directed LIVER BIOPSY PERFORMED ABOVE. PATHOLOGY PENDING. NO IMMEDIATE COMPLICATIONS. Abdomen/Pelvis CT 03/08/17 00:00 IMPRESSION: Stable. Chest X-Ray 03/09/17 00:00 IMPRESSION: STABLE APPEARANCE WITH MULTIPLE PULMONARY NODULES. NO ACUTE FINDINGS. Abdomen Ultrasound 03/12/17 00:00 IMPRESSION: Moderate ascites. Paracentesis Ultrasound 03/12/17 12:15 IMPRESSION: Successful ultrasound-guided diagnostic and therapeutic paracentesis Assessment & Plan - Diagnosis (1) Acute hypoxemic respiratory failure Is this a current diagnosis for this admission?: Yes (2) Cirrhosis of liver Qualifiers: Hepatic cirrhosis type: alcoholic cirrhosis Is this a current diagnosis for this admission?: Yes (3) Pulmonary nodule Is this a current diagnosis for this admission?: Yes (4) Hepatitis C Qualifiers: Viral hepatitis chronicity: chronic Hepatic coma status: without hepatic coma Qualified Code(s): B18.2 - Chronic viral hepatitis C Is this a current diagnosis for this admission?: Yes (5) Thrombocytopenia Is this a current diagnosis for this admission?: Yes - Plan Summary Plan Summary: adjusted meds for patient comfort
--- NOTE | 2017-03-17 17:02 | PDOC PROGRESS REPORT ---
Subjective Progress Note for:: 03/17/17 Subjective:: agonal respirations Physical Exam Vital Signs: Temp Pulse Resp BP Pulse Ox 97.5 F 78 20 105/50 L 87 L 03/16/17 15:15 03/17/17 07:00 03/16/17 15:15 03/17/17 04:00 03/17/17 09:04 Intake & Output 03/16/17 03/17/17 03/18/17 06:59 06:59 06:59 Intake Total 2230 20 Output Total 1305 Balance 925 20 General appearance: PRESENT: no acute distress, disheveled, thin, well-developed Head exam: PRESENT: atraumatic, normocephalic Eye exam: PRESENT: conjunctiva pale Mouth exam: PRESENT: dry mucosa, neck supple Neck exam: PRESENT: carotid bruit Respiratory exam: PRESENT: decreased breath sounds, prolonged expiratory phas, rales, rhonchi, wheezes, other - agonal Cardiovascular exam: PRESENT: irregular rhythm Pulses: PRESENT: normal radial pulses GI/Abdominal exam: PRESENT: ascites Rectal exam: PRESENT: deferred Musculoskeletal exam: PRESENT: normal inspection Results Laboratory Results: 03/16/17 05:21 03/16/17 05:21 03/16/17 05:21 WBC 9.4 RBC 1.97 L Hgb 8.0 L Hct 23.1 L MCV 118 H MCH 40.6 H MCHC 34.5 RDW 16.1 H Plt Count 30 L* Seg Neutrophils % 82.9 H Lymphocytes % 8.9 L Monocytes % 6.7 Eosinophils % 1.1 Basophils % 0.4 Absolute Neutrophils 7.8 Absolute Lymphocytes 0.8 Absolute Monocytes 0.6 Absolute Eosinophils 0.1 Absolute Basophils 0.0 Impressions: Venous Doppler Study 03/01/17 00:00 IMPRESSION: NO EVIDENCE DVT OR SVT IN EITHER LEG. Body Scan Nuclear Medicine 03/02/17 00:00 IMPRESSION: No areas of increased uptake worrisome for bony metastatic disease Chest/Abdomen CTA 03/04/17 00:00 IMPRESSION: 1. NORMAL CTA OF THE CHEST. NO PULMONARY EMBOLI. 2. STABLE FINDINGS RELATED TO MALIGNANCY AND METASTATIC INVOLVEMENT WITH NUMEROUS PULMONARY NODULES, MEDIASTINAL AND HILAR ADENOPATHY, LIVER LESIONS, AND ASCITES. SMALL PLEURAL EFFUSIONS. Guidance Needle Placement CT 03/05/17 00:00 IMPRESSION: Please see combined report for performance of procedure and radiologic supervision and interpretation. Liver Biopsy CT 03/05/17 07:00 IMPRESSION: CT GUIDED directed LIVER BIOPSY PERFORMED ABOVE. PATHOLOGY PENDING. NO IMMEDIATE COMPLICATIONS. Abdomen/Pelvis CT 03/08/17 00:00 IMPRESSION: Stable. Chest X-Ray 03/09/17 00:00 IMPRESSION: STABLE APPEARANCE WITH MULTIPLE PULMONARY NODULES. NO ACUTE FINDINGS. Abdomen Ultrasound 03/12/17 00:00 IMPRESSION: Moderate ascites. Paracentesis Ultrasound 03/12/17 12:15 IMPRESSION: Successful ultrasound-guided diagnostic and therapeutic paracentesis Assessment & Plan - Diagnosis (1) Acute hypoxemic respiratory failure Is this a current diagnosis for this admission?: Yes (2) Cirrhosis of liver Qualifiers: Hepatic cirrhosis type: alcoholic cirrhosis Is this a current diagnosis for this admission?: Yes (3) Pulmonary nodule Is this a current diagnosis for this admission?: Yes (4) Hepatitis C Qualifiers: Viral hepatitis chronicity: chronic Hepatic coma status: without hepatic coma Qualified Code(s): B18.2 - Chronic viral hepatitis C Is this a current diagnosis for this admission?: Yes (5) Thrombocytopenia Is this a current diagnosis for this admission?: Yes - Plan Summary Plan Summary: end stage disease nearing terminal event
[2017-03-19] MEDS ORDERED: SCOPOLAMINE HYDROBROMIDE 1.5 MG PATCH.TD72 TD SCH (10:00)
== END 2017-03-17 14:50 | disposition expired | DRG 189 ==
LOC: ER 17:45 → UNDOADMIN 03-01 00:43 → EH 03-01 00:43 → 3W 03-01 13:17
PROVIDERS: ADMIT Family Medicine; ATTEND Family Medicine
PROC: 5A09557 Assistance with Respiratory Ventilation, Greater than 96 Consecutive Hours, Continuous Positive Airway Pressure (ICD-10-PCS; 2017-03-01)
PROC: 0W9G3ZZ Drainage of Peritoneal Cavity, Percutaneous Approach (ICD-10-PCS; 2017-03-02)
PROC: 6A550Z2 Pheresis of Platelets, Single (ICD-10-PCS; 2017-03-02)
PROC: 0W9G3ZZ Drainage of Peritoneal Cavity, Percutaneous Approach (ICD-10-PCS; 2017-03-05)
PROC: 0FB03ZX Excision of Liver, Percutaneous Approach, Diagnostic (ICD-10-PCS; 2017-03-05)
PROC: 30233K1 Transfusion of Nonautologous Frozen Plasma into Peripheral Vein, Percutaneous Approach (ICD-10-PCS; 2017-03-05)
PROC: 0HQ7XZZ Repair Abdomen Skin, External Approach (ICD-10-PCS; 2017-03-08)
PROC: 30233K1 Transfusion of Nonautologous Frozen Plasma into Peripheral Vein, Percutaneous Approach (ICD-10-PCS; 2017-03-08)
PROC: 0W9G3ZZ Drainage of Peritoneal Cavity, Percutaneous Approach (ICD-10-PCS; principal; 2017-03-12)
DX: J96.01 Acute respiratory failure with hypoxia (principal); K65.2 Spontaneous bacterial peritonitis; C78.00 Secondary malignant neoplasm of unspecified lung; C80.1 Malignant (primary) neoplasm, unspecified; K70.31 Alcoholic cirrhosis of liver with ascites; B18.2 Chronic viral hepatitis C; D69.6 Thrombocytopenia, unspecified; Z51.5 Encounter for palliative care; I10 Essential (primary) hypertension; J44.9 Chronic obstructive pulmonary disease, unspecified; I50.9 Heart failure, unspecified; D89.2 Hypergammaglobulinemia, unspecified; F41.9 Anxiety disorder, unspecified; F32.9 Major depressive disorder, single episode, unspecified; Z79.899 Other long term (current) drug therapy; Z74.01 Bed confinement status; Z66 Do not resuscitate; Z90.49 Acquired absence of other specified parts of digestive tract; Z87.891 Personal history of nicotine dependence
CPT/HCPCS: 36415; 36430; 36600; 47000; 49083; 71010; 71275; 74176; 74177; 76705; 77012; 78306; 80048; 80053; 80307; 81001; 81270; 82105; 82140; 82378; 82550; 82553; 82607; 82746; 82784; 82785; 82803; 83735; 83880; 84100; 84443; 84484; 85025; 85027; 85379; 85610; 85730; 86022; 86900; 86901; 87040; 87070; 87075; 87086; 87205; 88305; 88307; 88313; 88341; 88342; 89050; 93005; 93010; 93306; 93970; 94640; 94660; 94799; 96365; 96367; 96375; 99291; A9270-GY; A9561; J0456; J0692; J0696; J1940; J2060; J2250; J2270; J2930; J3010; J3480; J3490; J7030; J7060; J7620; P9017; P9035; P9047; Q9969